=== PATIENT | male | born 1945 | race African-American/Black ===

== ENCOUNTER 2023-11-15 13:48 | Outpatient (AMB) | payer MEDICARE, MEDICAID, SELFPAY ==
--- NOTE | 2023-11-15 14:07 | HO.NEPHOV ---
Vital Signs 11/15/23 14:09 Height 5 ft 11 in Weight 179 lb BMI 25.0 BP 86/54 L Blood Pressure Location Rt brachial Position Sitting Pulse 63 Pulse Source Pulse Oximeter Pulse Oximetry (%) 97 Oxygen Delivery Method Room Air Intake Visit Reasons: Self referral- 2nd opinion/ sees Dr Bennett/ Araseli Pressurised Container Filler Required: No Accompanied by: Friend Allergies codeine Allergy (Unknown, Verified 11/15/23 14:12) Unknown Medication List - Last Reconciled 11/15/23 by Yonny Pelayo MD apixaban (Eliquis) 2.5 mg PO BID dorzolamide-timolol 22.3-6.8 mg/mL ophthalmic (eye) BID famotidine 10 mg PO DAILY linaclotide (Linzess) 72 mcg PO DAILY HPI Comments Details: Edmund is a pleasant 78-year-old man with a history of chronic kidney disease stage 3. Serum creatinine has been around 1.6 mg/dL and this has been relatively unchanged for the past 3 years. The exact etiology for CKD is unclear at this time. Back in 2017 he was diagnosed with AFib and he had a stroke. He is on anticoagulation at this time. CKD was diagnosed at that time. No history of hypertension or diabetes mellitus. No urinary symptoms. No polyuria polydipsia no hematuria. No kidney stones. No significant shortness of breath on exertion. He had as leg edema no fever no rash. No joint pains. No nausea or vomiting. No weight loss. He has itching on and off. No significant skin lesions were noted He has significant constipation and recently started on Linzess. Is legally blind [facility] Medical History (Updated 11/15/23 @ 14:33 by Yonny Pelayo MD) Stage 3b chronic kidney disease (CKD) Atrial fibrillation Hemorrhoid Glaucoma Surgical History (Updated 11/15/23 @ 14:12 by VANITA Mc) Hx of cataract surgery (~08/2023) Physical Exam Vital Signs: Last Vital Signs Pulse 63 11/15/23 14:09 BP 86/54 L 11/15/23 14:09 Pulse Ox 97 11/15/23 14:09 Oxygen Delivery Method Room Air 11/15/23 14:09 BMI result Body Mass Index 25.0 Const General: comfortable; No acute distress Orientation/consciousness: patient oriented x3 Eyes General: appearance normal, both eyes and all related structures Neck Neck: Yes supple and Yes no JVD Resp Effort & Inspection: normal respiratory effort and respiratory effort not decreased Auscultation: rhonchi Cardio Palpation: no palpable S3 and no palpable S4 Heart sounds: no rubs GI Inspection: Yes normal to inspection Palpation (GI): Soft to palpation Percussion: Yes normal to percussion Auscultation: normal bowel sounds General: Yes no CVA tenderness Back/Spine/Pelvis Back: no CVA tenderness Skin General skin exam: no petechiae and no purpura Neuro General: patient oriented x3 and no focal motor deficits Extrem General: No clubbing and Yes edema Results Reviewed Results Reviewed: Labs were reviewed serum creatinine 1.6. Nephrology Results: No Data to Display Assessment & Plan Assessment & Plan (1) Stage 3b chronic kidney disease (CKD): Code(s): N18.32 - Chronic kidney disease, stage 3b Category: Medical Plan 78-year-old man with CKD 3. Serum creatinine has been stable at 1.6 for the last few years. Clearly renal function appears stable. Initiated workup for CKD. Obtain 24 urine collection for creatinine clearance. Check renal ultrasonogram. Urine studies ordered. Further workup will depend on the outcome of the baseline investigations. At present blood pressure is rather low but he is asymptomatic. Leg edema. Etiology is unclear. Recently had echocardiogram and was reportedly normal. I will track down the results. Based on recent blood work there is no evidence of any significant anemia or secondary hyperparathyroidism. He has been experiencing sporadic itching. I do not think this is related to his renal failure. Calcium and phosphorus were normal. No evidence of uremia. I have answered all their questions and returned to the office after the baseline workup is completed Orders: Orders Complete Blood Count Auto Diff 11/15/23 N18.32 - Chronic kidney disease, stage 3b Comprehensive Met. Panel 11/15/23 N18.32 - Chronic kidney disease, stage 3b Creatinine, 24 Hr Group 11/15/23 N18.32 - Chronic kidney disease, stage 3b Parathyroid Hormone Intact 11/15/23 N18.32 - Chronic kidney disease, stage 3b Vitamin D 25-OH (D2 and D3) 11/15/23 N18.32 - Chronic kidney disease, stage 3b UA and rflx microscopic 11/15/23 N18.32 - Chronic kidney disease, stage 3b Protein Electrophoresis, Serum 11/15/23 N18.32 - Chronic kidney disease, stage 3b US renal BI 11/15/23 N18.32 - Chronic kidney disease, stage 3b Creatinine Urine 11/15/23 N18.32 - Chronic kidney disease, stage 3b Creatinine Clearance Urine 24U 11/15/23 N18.32 - Chronic kidney disease, stage 3b Phosphorus 11/15/23 N18.32 - Chronic kidney disease, stage 3b Total Protein Urine Random 11/15/23 N18.32 - Chronic kidney disease, stage 3b Coding Level of Care Code New Pt Level 4 (75675) Diagnoses Stage 3b chronic kidney disease (CKD) N18.32
[2023-11-15 14:09] VITALS: BP 86/54; PULSE 63; O2SAT 97; BMI 25.0
== END 2023-11-15 14:42 | disposition home or self-care (01) ==
PROVIDERS: PCP Internal Medicine; Visit Provider Internal Medicine Hypertension Specialist
DX: N18.32 Chronic kidney disease, stage 3b (principal)
CPT/HCPCS: 99204

== ENCOUNTER → 2023-11-15 13:48 | Outpatient (BNVA) | payer MEDICARE, MEDICAID, SELFPAY | PROVIDERS: PCP Internal Medicine; Visit Provider Internal Medicine Hypertension Specialist | DX: N18.32 Chronic kidney disease, stage 3b (principal); Z79.01 Long term (current) use of anticoagulants | CPT/HCPCS: 99202 ==

== ENCOUNTER 2024-01-10 13:21 | Outpatient (REF) | payer MEDICARE, MEDICAID, SELFPAY ==
[2024-01-10 14:25] LABS: MANUAL DIFF FLAG NO
[2024-01-10 14:41] LABS: Basophils Absolute Auto 0.1 X10*3/uL (0.0-0.2); Eosinophils Absolute Auto 0.2 X10*3/uL (0.0-0.4); Eosinophils Percent Auto 2.2 % (0-4); Hematocrit 44.2 % (42.0-52.0); Hemoglobin 14.2 g/dl (14.0-18.0); Imm Gran Abs Auto 0.02 X10*3/uL (0.00-0.03); Imm Gran Pct Auto 0.3 % (0.0-0.4); Lymphocytes Absolute Auto 1.2 X10*3/uL (1.2-4.9); Lymphocytes Percent Auto 16.9 % (20-40); Mean Corpuscular HGB Conc 32.1 g/dl (31.0-36.0); Mean Platelet Volume 9.3 fL (9.4-12.4); Monocytes Absolute Auto 0.8 X10*3/uL (0.1-1.2); Monocytes Percent Auto 10.8 % (2-11); Neutrophils Percent Auto 68.8 % (45-73); Platelet Count 231 X10*3/uL (160-400); Red Blood Count 5.08 X10*6/uL (4.60-5.80); White Blood Count 7.2 X10*3/uL (4.8-10.8)
[2024-01-10 14:52] LABS: Appearance Urine Clear; Color Urine Yellow; Glucose Urine UA Negative (Negative); Leukocyte Esterase Urine Negative (Negative); Nitrite Urine Negative (Negative); Urine Blood Negative (Negative); Urine Ketones Negative (Negative); Urine Protein Negative (Neg-Trace)
[2024-01-10 15:32] LABS: Parathyroid Hormone Intact 94.4 pg/mL (8.7-77.1)
[2024-01-10 15:41] LABS: Alanine Aminotransferase 17 U/L (0-40); Albumin Level 3.9 g/dL (3.5-5.0); Alkaline Phosphatase 61 U/L (39-117); Anion Gap 11 (12-20); Aspartate Amino Transferase 24 U/L (5-37); Bilirubin Total 0.4 mg/dL (0.0-1.0); Blood Urea Nitrogen 19 mg/dL (9-16); Calcium 9.3 mg/dL (8.4-10.2); Carbon Dioxide 24 mmol/L (22-29); Chloride 106 mmol/L (96-108); Estimated Glomerular Filt Rate 39; Glucose Random 88 mg/dL (60-115); Phosphorus 3.5 mg/dL (2.7-4.5); Sodium 137 mmol/L (135-145); Total Protein 6.7 g/dL (6.5-8.0)
[2024-01-10 16:37] LABS: Total Protein Urine Random 11 mg/dL (<12)
[2024-01-11 11:58] LABS: Prot Elec - Albumin 3.8 g/dL (3.8-4.8); Prot Elec - Alpha1 0.2 g/dL (0.2-0.3); Prot Elec - Alpha2 0.7 g/dL (0.5-0.9); Prot Elec - Beta 1 0.4 g/dL (0.4-0.6); Prot Elec - Beta 2 0.4 g/dL (0.2-0.5); Prot Elec - Gamma 1.1 g/dL (0.8-1.7); Prot Elec - Total Protein 6.6 g/dL (6.1-8.1)
[2024-01-14 17:34] LABS: Vitamin D 25-OH, D2 <4 ng/mL; Vitamin D 25-OH, D3 17 ng/mL; Vitamin D 25-OH, Total 17 ng/mL (30-100)
== END 2024-01-10 13:22 | disposition home or self-care (01) ==
LOC: HO.LAB 13:21
PROVIDERS: PCP Internal Medicine; Visit Provider Internal Medicine Hypertension Specialist
DX: N18.32 Chronic kidney disease, stage 3b (principal)
CPT/HCPCS: 36415; 80053; 81003; 82306; 82570; 83970; 84100; 84156; 84165; 85025; 99212

== ENCOUNTER 2024-01-10 13:21 | Outpatient (AMB) | payer MEDICARE, MEDICAID, SELFPAY ==
[2024-01-10 13:22] VITALS: BP 100/60; PULSE 63; O2SAT 97; BMI 24.5
--- NOTE | 2024-01-10 13:22 | HO.NEPHOV_ITS ---
Vital Signs 01/10/24 13:22 01/10/24 13:32 Height 5 ft 11 in Weight 176 lb BMI 24.5 BP 100/60 106/60 Blood Pressure Location Rt brachial Rt brachial Position Sitting Sitting Pulse 63 Pulse Source Pulse Oximeter Pulse Oximetry (%) 97 Oxygen Delivery Method Room Air Intake Visit Reasons: Stage 3b CKD/ LVM Obiee Report Developer Required: No Accompanied by: Friend Allergies codeine Allergy (Unknown, Verified 01/10/24 13:24) Unknown Medication List - Last Reconciled 01/10/24 by Yonny Pelayo MD apixaban (Eliquis) 2.5 mg PO BID dorzolamide-timolol 22.3-6.8 mg/mL ophthalmic (eye) BID famotidine 10 mg PO DAILY linaclotide (Linzess) 72 mcg PO DAILY HPI Comments Details: Edmund is a pleasant 78-year-old man with a history of chronic kidney disease stage 3. Serum creatinine has been around 1.6 mg/dL and this has been relatively unchanged for the past 3 years. The exact etiology for CKD is unclear at this time. Back in 2017 he was diagnosed with AFib and he had a stroke. He is on anticoagulation at this time. CKD was diagnosed at that time. No history of hypertension or diabetes mellitus. No urinary symptoms. No polyuria polydipsia no hematuria. No kidney stones. No significant shortness of breath on exertion. He had as leg edema no fever no rash. No joint pains. No nausea or vomiting. No weight loss. He has itching on and off. No significant skin lesions were noted He has significant constipation and recently started on Linzess. Is legally blind 01/10/24 Doing better NO new issues today Has difficulty sleeping c/o fatigue [facility] Medical History (Updated 11/15/23 @ 14:33 by Yonny Pelayo MD) Stage 3b chronic kidney disease (CKD) Atrial fibrillation Hemorrhoid Glaucoma Surgical History Hx of cataract surgery (~08/2023) Physical Exam Vital Signs: BMI result Body Mass Index 24.5 Comfortable Neck supple no JVD. Lungs entry equal no rales. Heart S1-S2 heard no gallop or rub. Abdomen soft nontender. Neuro alert awake oriented. No asterixis. Extremities no edema. Results Reviewed Results Reviewed: Cr is better at 1.56 and egfr of 45 ml/mt Nephrology Results: No Data to Display Assessment & Plan Assessment & Plan (1) Stage 3b chronic kidney disease (CKD): Code(s): N18.32 - Chronic kidney disease, stage 3b Category: Medical Plan 78-year-old man with CKD 3. Serum creatinine has been stable at 1.6 for the last few years. Recent cr is 1.56 ( Nov 2023) Clearly renal function appears stable. 24 urine collection for creatinine clearance. Renal ultrasonogram - unremarkable Urine studies : NO protienuria. [place] UA At present blood pressure remains low but he is asymptomatic. Trace Leg edema. Etiology is unclear. Recently had echocardiogram and was reportedly normal. Based on recent blood work there is no evidence of any significant anemia or secondary hyperparathyroidism. Mild Vit D deficiency Will ADD VIt D He has been experiencing sporadic itching. I do not think this is related to his renal failure. Calcium and phosphorus were normal. No evidence of uremia. Currently under control. Orders: Orders Basic Metabolic Panel Today N18.32 - Chronic kidney disease, stage 3b Medications: New 2 cholecalciferol (vitamin D3) 10 mcg PO DAILY 100 caps 2RF Coding Level of Care Code Est Pt Level 4 (87263) Diagnoses Stage 3b chronic kidney disease (CKD) N18.32
[2024-01-10 13:32] VITALS: BP 106/60
== END 2024-01-10 13:45 | disposition home or self-care (01) ==
PROVIDERS: PCP Internal Medicine; Visit Provider Internal Medicine Hypertension Specialist
DX: N18.32 Chronic kidney disease, stage 3b (principal)
CPT/HCPCS: 99214

== ENCOUNTER 2024-05-01 12:31 | Outpatient (REF) | payer MEDICARE, MEDICAID, SELFPAY ==
[2024-05-01 13:57] LABS: Anion Gap 10 (12-20); Blood Urea Nitrogen 21 mg/dL (9-16); Calcium 8.8 mg/dL (8.4-10.2); Carbon Dioxide 24 mmol/L (22-29); Chloride 110 mmol/L (96-108); Estimated Glomerular Filt Rate 44; Glucose Random 93 mg/dL (60-115); Potassium 4.3 mmol/L (3.3-5.1); Sodium 140 mmol/L (135-145)
[2024-05-01 14:23] LABS: Creatinine, mg/dL 52.81; Creatinine, mg/dL 53.59
[2024-05-01 14:31] LABS: Creatinine (CrCl) 1.52 mg/dL (0.5-1.4); Creatinine Clearance 51.4 mL/min (85-125); Creatinine, 24Hr Urine 1.1 G/Day (1.0-2.0); Total Volume 24 Hour Urine 2100 mL
[2024-05-01 14:32] LABS: Creatinine, 24Hr Urine 1.1 G/Day (1.0-2.0); Total Volume 24 Hour Urine 2100 mL
== END 2024-05-01 12:32 | disposition home or self-care (01) ==
LOC: HO.LAB 12:31
PROVIDERS: PCP Internal Medicine; Visit Provider Internal Medicine Hypertension Specialist
DX: N18.32 Chronic kidney disease, stage 3b (principal)
CPT/HCPCS: 36415; 80048; 82570; 82575

== ENCOUNTER 2024-05-08 14:51 | Outpatient (AMB) | payer MEDICARE, MEDICAID, SELFPAY ==
[2024-05-08 14:55] VITALS: BP 92/70; BMI 23.0
--- NOTE | 2024-05-08 14:55 | HO.NEPHOV_ITS ---
Vital Signs 05/08/24 14:55 Height 5 ft 11 in Weight 165 lb BMI 23.0 BP 92/70 Blood Pressure Location Lt brachial Position Sitting Intake Visit Reasons: CKD/ Unable to reach Obstetrical Tech Required: No Accompanied by: Ex Allergies codeine Allergy (Unknown, Verified 05/08/24 14:56) Unknown Medication List - Last Reconciled 05/08/24 by Yonny Pelayo MD apixaban (Eliquis) 2.5 mg PO BID smavwuvyoa-melunvrits-pnh-cod [id number] mg 1 cap PO Q4H PRN cholecalciferol (vitamin D3) 10 mcg PO DAILY dorzolamide-timolol 22.3-6.8 mg/mL ophthalmic (eye) BID famotidine 20 mg PO BID tramadol 50 mg PO TID PRN HPI Comments Details: Edmund is a pleasant 78-year-old man with a history of chronic kidney disease stage 3. Serum creatinine has been around 1.6 mg/dL and this has been relatively unchanged for the past 3 years. The exact etiology for CKD is unclear at this time. Back in 2017 he was diagnosed with AFib and he had a stroke. He is on anticoagulation at this time. CKD was diagnosed at that time. No history of hypertension or diabetes mellitus. No urinary symptoms. No polyuria polydipsia no hematuria. No kidney stones. No significant shortness of breath on exertion. He had as leg edema no fever no rash. No joint pains. No nausea or vomiting. No weight loss. He has itching on and off. No significant skin lesions were noted He has significant constipation and recently started on Linzess. Is legally blind 01/10/24 Doing better; NO new issues today ;Has difficulty sleeping ;c/o fatigue 05/08/24 Recent in ER with abd pain- resolved Lost 10 lbs in 6months c/o Constipation Last colonoscopy was in 3 years [facility] Medical History (Updated 11/15/23 @ 14:33 by Yonny Pelayo MD) Stage 3b chronic kidney disease (CKD) Atrial fibrillation Hemorrhoid Glaucoma Surgical History Hx of cataract surgery (~08/2023) Physical Exam Vital Signs: Last Vital Signs BP 92/70 05/08/24 14:55 BMI result Body Mass Index 23.0 Comfortable Neck supple no JVD. Lungs entry equal no rales. Heart S1-S2 heard no gallop or rub. Abdomen soft nontender. Neuro alert awake oriented. No asterixis. Extremities no edema. Results Reviewed Nephrology Results: Hgb 14.2 g/dl (14.0-18.0) 01/10/24 WBC 7.2 X10*3/uL (4.8-10.8) 01/10/24 Plt Count 231 X10*3/uL (160-400) 01/10/24 Sodium 140 mmol/L (135-145) 05/01/24 Potassium 4.3 mmol/L (3.3-5.1) 05/01/24 Chloride 110 mmol/L (96-108) H 05/01/24 Carbon Dioxide 24 mmol/L (22-29) 05/01/24 BUN 21 mg/dL (9-16) H 05/01/24 Creatinine 1.52 mg/dL (0.5-1.4) H 05/01/24 Calcium 8.8 mg/dL (8.4-10.2) 05/01/24 Phosphorus 3.5 mg/dL (2.7-4.5) 01/10/24 PTH Intact 94.4 pg/mL (8.7-77.1) H 01/10/24 Urine Protein Negative mg/dL (Neg-Trace) 01/10/24 Urine Creatinine 173.40 mg/dL 01/10/24 Assessment & Plan Assessment & Plan (1) Stage 3b chronic kidney disease (CKD): Code(s): N18.32 - Chronic kidney disease, stage 3b Category: Medical Plan 79-year-old man with CKD 3. Serum creatinine has been stable at 1.6 for the last few years. Recent cr is 1.56 ( Nov 2023) Clearly renal function appears stable. 24 urine collection for creatinine clearance. Renal ultrasonogram - unremarkable Urine studies : NO protienuria. [place] UA At present blood pressure remains low but he is asymptomatic. Trace Leg edema. Etiology is unclear. Recently had echocardiogram and was reportedly normal. Based on recent blood work there is no evidence of any significant anemia or secondary hyperparathyroidism. Mild Vit D deficiency Added VIt D He has been experiencing sporadic itching. I do not think this is related to his renal failure. Calcium and phosphorus were normal. No evidence of uremia. Currently under control. Constipation with weight loss Needs GI follow up and possible colonoscopy. . Orders: Orders Complete Blood Count no Diff 3 Months N18.32 - Chronic kidney disease, stage 3b Basic Metabolic Panel 3 Months N18.32 - Chronic kidney disease, stage 3b Coding Level of Care Code Est Pt Level 4 (35756) Diagnoses Stage 3b chronic kidney disease (CKD) N18.32
--- OUTSIDE RECORDS SUMMARY | 2024-05-08 17:44 | XMS_ITS | Encounter Summary ---
Author Organization [facility], Address [address] [place] [address] Phone Care Team Providers Care Inspector Structural Bonding Name Role Phone Marybeth Hylton MD Primary Care Provider [phone] Encounter Details Date Type Department Care Team (Late st Contact Info) Description 06/17/2023 Documentation Only [facility], [address] [place] [id number] Rebecca Quinn [address] [place] [address] Social History Tobacco Use Types Packs/Day Years Used Date Smoking Tobacco: Never Smokeless Tobacco: Never Alcohol Use Standard Drinks/Week Comments Never 0 (1 standard drink = 0.6 oz pur e alcohol) AUDIT-C Answer Date Recorded Q1: How often do you have a drink containing alc ohol? Never 09/18/2019 Q2: How many drinks containi ng alcohol do you have on a typical day when you are drinking? Not asked 09/18/2019 Q3: How often do you have six or more drinks on one occasion? Never 09/18/2019 Sex and Gender Information Value Date Recorded Sex Assigned at Not on file Legal Sex Male 9:40 AM EDT Gender Identity Not on file Sexual Orientation Not on file documented as of this encounter Plan of Treatment Not on file documented as of this encounter Visit Diagnoses Not on filedocumented in this encounter Care Teams Inspector Structural Bonding Relationship Specialty Start Date End Date Marybeth Hylton MD [address] [place] [phone] PCP - General Internal Medicine 11/30/22 documented as of this encounter
--- OUTSIDE RECORDS SUMMARY | 2024-05-08 17:44 | XMS_ITS | Clinical Summary ---
Author Organization [facility], Address [address] [place] [address] Phone Care Team Providers Care Deck Supervisor Name Role Phone Marybeth Hylton MD Primary Care Provider [phone] Allergies Active Allergy Reactions Criticality Noted Date Comments Codeine Other (see comments) 09/17/2018 [facility]ANT Medications MAGNESIUM PO Take by mouth Act gabriel Multiple Vitamin (multivitamin) tablet Take by mouth 1 (one) time each day Active pilocarpine (PILOCAR) 2 % ophthalmic solution Active Timolol Maleate 0.5 % (DAILY) solution Administer into affected eye(s) Active butalbital-acet aminophen-caffe ine (FIORICET, ESGIC) 50-325-40 MG per tablet TAKE 2 TABLETS BY MOUTH EVERY 4 HOURS NEEDED FOR SEVERE HEADACHE LIMIT USE ABLE. 0 Active traMADol (ULTRAM) 50 MG tablet 0 Active Eliquis 2.5 MG tablet Take 2.5 mg by mouth 1 Active dorzolamide (TRUSOPT) 2 % ophthalmic solution 1 Active famotidine (PEPCID) 10 MG tablet Take 10 mg by mouth in the morning and 10 mg in the evening. Active ALPRAZolam (XANAX) 0.5 MG tablet TAKE 1 TAB 1 HOUR PRIOR TO INJECTION. 4 Active torsemide (DEMADEX) 5 MG tablet Take 5 mg by mouth 1 (one) time each day For 30 days 4 Active Active Problems Problem Noted Date Diagnosed Date Stage 3b chronic kidney disease 09/18/2019 Atrial fibrillation 09/18/2019 Resolved Problems Problem Noted Date Diagnosed Date Resolved Date Stage 3a chronic kidney disease 10/03/2021 11/27/2022 Cardioembolic stroke 09/18/2019 021 Immunizations Name Administration Dates Next Due Influenza Split High Dose Preservative Free IM 1 Influenza, Trivalent, Adjuvanted 11/21/2018 Influenza, Unspecified 11/21/2019,12/16/2018 Pfizer SARS-COV-2 04/19/2020,03/29/2020 Pneumococcal Conjugate 13-Valent 06/18/2014 Pneumococcal Polysaccharide 03/27/2008 Td 08/01/2018,03/27/2008 Zoster 04/22/2011 Family History Medical History Relation Comments Pulmonary embolism Sister Relation Status Comments Sister Social History Tobacco Use Types Packs/Day Years Used Date Smoking Tobacco: Never Smokeless Tobacco: Never Tobacco Cessation:Counseling Given: Not Answered Alcohol Use Standard Drinks/Week Comments Never 0 [...] on file Sexual Orientation Not on file Last Filed Vital Signs Vital Sign Reading Time Taken Comments Blood Pressure 102/62 06/21/2023 2:33 PM EDT Pulse 72 06/21/2023 2:33 PM EDT Temperature 36.3 ??C (97.4 ??F) 04/06/2022 2:39 PM ES T Respiratory Rate - - Oxygen Saturation - - Inhaled Oxygen Concentration - - Weight - - Height - - Body Mass Index - - Plan of Treatment Health Maintenance Due Date Last Done Comments Influenza Vaccine (#1) 2023 0, 12/16/2018, 11/21/2018, Additional history exists Pneumococcal Vaccine: 65+ Years Completed 06/18/2014, 03/27/2008 Hepatitis B Vaccine Aged Out No longe r eligible based on patient's age to complete this topic Insurance MEDICARE MEDICAID [place] Care Teams Deck Supervisor Relationship Specialty Start Date End Date Marybeth Hylton MD [address] [place] [phone] PCP - General Internal Medicine 11/30/22
--- OUTSIDE RECORDS SUMMARY | 2024-05-08 17:45 | XMS_ITS | Data Portability ---
Author Organization [place] - [facility], Allergy Address [address] [place] [phone] Care Team Providers Care Document Design Specialist Name Role Phone WHIT LANE Primary Care Provider Assessment No assessment recorded. Plan of Treatment Reminders Order Date Submit Date Provider Last Modified By Organization Details Last Modified Time Details Appointments None record ed. Lab None record ed. Referral None record ed. Procedures None record ed. Surgeries None record ed. Imaging None record ed. Medication Orders None record ed. Patient TargetsNo targets recorded. Patient InstructionsNo instructions recorded. Reason for Referral None Reported. Results Created Date Observation Date Name Description Value Unit Range Abnormal Flag Note LastModifiedBy Organization Detail LastModifiedTime 11/12/19 24 03/22/2023 CT, head + brain , w/o contr ast No observ ation record ed. [email or web address] Available 2023 15:17:20 11/12/19 24 03/23/2023 MRI, brain , w/o contr ast No observ ation record ed. [email or web address] Not Available 2023 15:17:42 Result Notes None recorded. Problems Name Problem SNOMED Code Status Onset Date Resolution Date Notes Provider Name and Address Organization Details Recorded Time Abnormal findings on diagnostic imaging of skull and head 471283023 Active 2023 ABIEL Garza MD [address] [address], [place], [phone], [facility] - [facility] 4 13:57:09 Posterior rhinorrhea 08355198 Active 2023 ABIEL Garza MD [address] [facility] [address], [place], [phone], [place] - [facility] 4 13:57:15 Chronic hoarseness 3155547604121 Active 2023 ABIEL Garza MD [address] [facility], [place], [phone], [facility] - [facility] [place] 4 13:57:25 Impacted cerumen of bilateral ears 9547813568176 108 Active 2023 ABIEL Garza MD [address] [facility] [address], [place], [phone], [facility] - [facility] [place] 4 14:11:28 Problem Notes None recorded. Procedures Surgical History Date Name Laterality Status Provider Name and Address Organization Details Recorded Time 11/12/19 24 Cerumen removal with microscope bilateral completed ABIEL AMADOR MD [address] [facility],[address] [address], [place], [phone], [facility] - [facility] [place] 11/12/2023 14:11:49 11/12/19 24 FFL_RE completed ABIEL AMADOR MD [address] [facility],[address] [address], [place], [phone], [facility] - [facility] [place] 11/12/2023 14:08:59 Cataract surg w/iol 1 stage completed Mannie Ambrose [facility] [place] [place] 11/12/2023 13:17:31 Imaging Results Imaging Date Name Status LastModified by Organiz ation Details LastModified Time 03/22/2023 CT, head + brain, w/o contrast [email or web address] Information not available 11/12/2023 15:17:20 03/23/2023 MRI, brain, w/o contrast completed [email or web address] Information not available 11/12/2023 15:17:42 Procedure Notes None recorded. Medical Equipment None Reported. Medications Name Sig Start Date Stop Date Status Note LastModified by Organization Details LastModified Time alprazolam 1 mg tablet TAKE TABLET BY MOUTH 1 HOUR BEFORE INJECTION active Not Available Not Available No t Available ofloxacin 0.3 % eye drops INSTILL 1 DROP IN LEFT EYE FOUR TIMES A DAY active Not Available Not Available No t Available hydrocodone 5 mg-acetaminop hen 325 mg tablet 1 TABLET BY MOUTH 3 TIMES A DAY NEEDED active Not Available Not Available No t Available prednisone 20 mg tablet TAKE 3 TABS A DAY FOR 3 DAYS, THEN 2 TABS A DAY FO 3 DAYS, THEN 1 TAB A DAY FOR 3 DAYS active Not Available Not Available No t Available sulfamethoxaz ole 800 mg-trimethopr im 160 mg tablet TAKE 1/2 TABLET BY MOUTH EVERY 12 HOURS X14 DAYS,PATIE NT TO HAVE EXTRA ON HAND PER MD active Not Available Not Available No t Available tramadol 50 mg tablet TAKE 1 TABLET BY MOUTH 3 TIMES A DAY FOR PAIN active Not Available Not Available No t Available ketorolac 0.5 % eye drops INSTILL 1 DROP IN LEFT EYE THREE TIMES A DAY FOLLOWING SURGERY FOR THREE WEEKS active Not Available Not Available No t Available alprazolam 0.5 mg tablet TAKE 1 TAB 1 HOUR PRIOR TO INJECTION. active Not Available Not Available N ot Available prednisolone acetate 1 % eye drops,suspens ion INSTILL 1 DROP IN LEFT EYE THREE TIMES A DAY (SHAKE WELL) FOLLOWING SURGERY FOR THREE WEEKS active Not Available Not Available No t Available temazepam 15 mg capsule TAKE 1 CAPSULE BY MOUTH EVERY DAY AT BEDTIME NEEDED NO MORE THAN 3 TIMES A WEEK active Not Available Not Available No t Available tamsulosin 0.4 mg capsule TAKE 1 CAPSULE BY MOUTH EVERY DAY active Not Available Not Available No t Available torsemide 5 mg tablet TAKE 1 TABLET BY MOUTH EVERY DAY FOR 30 DAYS active Not Available Not Available No t Available nystatin 100,000 unit/gram topical cream APPLY TO AFFECTED AREA TWICE A DAY active Not Available Not Available No t Available fluorometholo ne 0.1 % eye drops,suspens ion LOCATION: LEFT EYE. INSTILL ONE DROP IN LEFT EYE FOUR TIMES A DAY active Not Available Not Available No t Available dorzolamide 22.3 mg-timolol 6.8 mg/mL eye drops INSTILL 1 DROP INTO BOTH EYES TWICE A DAY active Not Available Not Available No t Available timolol maleate 0.5 % eye drops LOCATION: BOTH EYES. INSTILL ONE DROP IN BOTH EYES EVERY 12 HOURS active Not Available Not Available No t Available finasteride 5 mg tablet TAKE 1 TABLET BY MOUTH EVERY DAY active Not Available Not Available No t Available dorzolamide 2 % eye drops LOCATION: BOTH EYES. INSTILL ONE DROP IN BOTH EYES EVERY 12 HOURS active Not Available Not Available No t Available mirtazapine 7.5 mg tablet TAKE 1 TABLET BY MOUTH EVERY DAY FOR 30 DAYS active Not Available Not Available No t Available Romariote-G 236 gram-22.74 gram-6.74 gram-5.86 gram oral solution DRINK 240 ML BY MOUTH EVERY 10 MINUTES active Not Available Not Available No t Available Xifaxan 550 mg tablet TAKE 1 TABLET BY MOUTH 3 TIMES A DAY FOR 14 DAYS active Not Available Not Available No t Available Linzess 72 mcg capsule 1 CAPSULE BY MOUTH DAILY,INST R:DO NOT CRUSH OR CHEW active Not Available Not Available No t Available Vitals Date Recorded Body height Body mass index (BMI) Body weight Provider Name and Address Organization Details Last Updated DateTime 11/12/2023 180.34 cm 24.7 kg/m2 44919.85 g Mannie Ambrose [place] - [facility] 11/12/2023 13:28:45 Social History None recorded. Functional Status None recorded. Mental Status None recorded. Family History Nothing Reported. Medical History No medical history recorded. Past Encounters Encounter ID Performer Location Encounter Start Date Encounter Closed Date Diagnosis/Indication Diagnosis SNOMED-CT Code Diagnosis ICD10 Code Diagnosis Note [id number] ABIEL AMADOR MD [facility] on [address] [place] [address] 11/12/2023 12:52:54 11/12/2023 15:18:02 Abnormal findings on diagnostic imaging of skull and head 083355448 R93.0 mucus retention cyst seen on CT. I gave reassuranc e. No polyps on nasal endo. Posterior rhinorrhea 758 12108 R09.82 encouraged hydration and Neilmed sinus rinse. 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 Impacted c erumen of bilateral ears [id number] 808168 H61.23 Recurrent Cerumen Impactions : Ears were meticulous ly cleaned bilaterall y today with a curette and suction. The patient tolerated this well and will follow up for repeat debridemen t per routine. Health Concerns Section Related Observation LastModified by Organization Detai ls LastModified Time None Recorded Concern Status LastModified by Organization Details LastModified Time None Recorded Advance Directives Directive None Recorded Payers Encounter Date Sequence Insurance Name Policy Number Policy Lal Covered Member ID Lal Member ID Guarantor Name 11/12/2023 1 [place]ARE [place]: [employer] Edmund Allison [id number] 1 Edmund Allison Notes Date Note Type Note Provider Name and Address Organization Details Recorded Time 11/12/2023 text/html He has a history of post nasal drip. He feels mucus drain into his throat. He feels it affects his voice. He had imaging due to concern for stroke and carotid dissection including a CT head 03/2023 which showed a mucus retention cysts in the right maxillary sinus. Had a MRI brain 03/2023 which showed clear sinuses. He also has occasional ear pain. He is legally blind. ABIEL AMADOR MD [address] [place] [address], [phone], [place] - [facility] 11/12/2023 14:12:09
--- OUTSIDE RECORDS SUMMARY | 2024-05-08 17:45 | XMS_ITS | Data Portability ---
Author Organization [facility], [facility] Address [address] [place] [address] Care Team Providers Care Ore Puncher Name Role Phone AMARA DUBON OTHER HAL KATE OTHER DANETTE BENNETT Pattern Cutter [facility] Urologist DALTON QUINTERO Sports Medicine WHIT HYLTON Primary Care Provider [phone] Assessment Encounter Date Assessment Date Assessment LastModified by Organization Details LastModified Time 04/10/2024 04/10/2024 The care for this patient today involved the following: I have reviewed, collected, and updated relevant history and performed a physical exam. An independent historian was used to obtain history Nando lynnerenetta Wild My assessment of Social Determinants of health: patient at risk. At risk due to: food, health insurance, housing, transportation, safety, health literacy. My care of this patient involved: Moderate assessment of problems. Low review of data. Moderate complexity of risk from disease or treatments. Below is my assessment and plan for this patient? s care today. [email or web address] Not available 04/13/2024 07:51:08 Plan of Treatment Reminders Order Date Submit Date Provider Last Modified By Organization Details Last Modified Time Details Appointments LAB Follow- Up 2024 10:35A M [facility] Lab Not available Not available Not available Treatme nt Nurse 20 2024 11:40A M [facility]REAT[facility] NURSE [facility] Not available Not available Not available Follow Up, 30 2024 12:00P M FAVIOLA KELLEY, SENIOR RESERVOIR ENGINEER Not available Not available Not available LAB Follow- Up 2024 11:30A M [facility] Lab Not available Not available Not available Wellnes s Visit 30 2024 01:30P M FAVIOLA KELLEY, SENIOR RESERVOIR ENGINEER Not available Not available Not available Lab culture , urine 2024 025 [facility], [address] [place] [address], [id number], 04/11/2024 22:38:05 urinaly sis, dipstic k 2024 025 [facility], [address] [place] [address], [id number], 04/10/2024 18:24:17 Referral None recorde d. Procedures None recorde d. Surgeries None recorde d. Imaging None recorde d. Medication Orders cyanoco balamin (vit B-12) 1,000 mcg/mL injecti on solutio n [address]/Pharmacy #[id number], [address] [place] [address], [id number], 04/25/2024 08:27:13 Bactrim DS 800 mg-160 mg tablet 2024 025 [facility] [address] [place] [address], [id number], 05/04/2024 12:03:30 cyanoco balamin (vit B-12) 1,000 mcg/mL injecti on solutio n [address]/Pharmacy #1094, [address] [place], [address], 03/10/2024 11:34:13 cyanoco balamin (vit B-12) 1,000 mcg/mL injecti on solutio n [address]/Pharmacy #1094, [address] [place], [address], 02/07/2024 14:32:55 Patient TargetsNo targets recorded. Patient InstructionsNo instructions recorded. Reason for Referral None Reported. Results Created Date Observation Date Name Description Value Unit Range Abnormal Flag Note LastModifiedBy Organization Detail LastModifiedTime 04/10/1904/10/2024 POC UA glu UA NEGATI VE Not Available [facility] [address] [place] [address], [id number], 04/10/2024 17:41:20 04/10/19 25 04/10/2024 POC UA clarity UA CLEAR Not Available [facility] [address] [place] [address], [id number], 04/10/2024 17:41:20 04/10/19 25 04/10/2024 POC UA uro UA 0.2000 Not Available [facility] [address] [place] [address], [id number], 04/10/2024 17:41:20 04/10/19 25 04/10/2024 POC UA ket UA NEGATI VE Not Available [facility] [address] [place] [address], [id number], 04/10/2024 17:41:20 04/10/19 25 04/10/2024 POC UA pro UA NEGATI VE Not Available [facility] [address] [place] [address], [id number], 04/10/2024 17:41:20 04/10/19 25 04/10/2024 POC UA nit UA NEGATI VE Not Available [facility] [address] [place] [address], [id number], 04/10/2024 17:41:20 04/10/19 25 04/10/2024 POC UA amanda UA NEGATI VE Not Available [facility] [address] [place] [address], [id number], 04/10/2024 17:41:20 04/10/19 25 04/10/2024 POC UA pH UA 6.0000 Not Available [facility] [address] [place] [address], [id number], 04/10/2024 17:41:20 04/10/19 25 04/10/2024 POC UA SG UA 1.0200 Not Available [facility] [address] [place] [address], [id number], 04/10/2024 17:41:20 04/10/19 25 04/10/2024 POC UA color UA YELLOW Not Available [facility] [address] [place] [address], [id number], 04/10/2024 17:41:20 04/10/19 25 04/10/2024 POC UA blo UA NEGATI VE Not Available [facility] [address] [place] [address], [address], 04/10/2024 17:41:20 04/10/19 25 04/10/2024 POC UA lilly UA NEGATI VE Not Available [facility] [address] [place] [address], [id number], 04/10/2024 17:41:20 04/10/19 25 04/11/2024 CULTU RE, URINE , ROUTI NE culture, urine, routine CULTU RE, URINE , ROUTI NE Micro Numbe r: [id number] Test Statu s: Final Speci men Sourc e: Urine Speci men Quali ty: Adequ ate Resul t: No Growt h Not Available [facility] [address] [place] [address] B, [place], [address], 04/11/2024 22:38:05 04/25/19 25 04/25/2024 HGB A1C hemoglobin A1C 6.4 % 4.8-6. 0 high Goal: <7% in Patie nts with Diabe oswaldo An A1c betwe en 5.7-6 .4% is ident ified as pre-d iabet es and sugge sts risk for progr essio n to diabe oswaldo Two a1c value s of 6.5% or highe r is consi stent with a diagn osis of diabe oswaldo but may need furth er confi rmati on Not Available [address], [address], 04/25/2024 09:48:06 04/25/1904/25/2024 HGB A1C estimated average glucose 137.0 mg/dL Not Available [address], [address], 04/25/2024 09:48:06 04/25/19 25 04/25/2024 BASIC METAB OLIC PANEL glucose 83 mg/dL 70-100 Not Available [address], [address], 04/25/2024 14:48:59 04/25/19 25 04/25/2024 BASIC METAB OLIC PANEL BUN 27 mg/dL 7-18 high Not Available [address], [address], 04/25/2024 14:48:59 04/25/19 25 04/25/2024 BASIC METAB OLIC PANEL creatinine 1.8 mg/dL 0.8-1. 3 high Not Available [address], [address], 04/25/2024 14:48:59 04/25/1904/25/2024 BASIC METAB OLIC PANEL B/C 15.0 ratio Not Available [address], [address], 04/25/2024 14:48:59 04/25/1904/25/2024 BASIC METAB OLIC PANEL GFR 37.3 mL/mi n abnormal >=60m L/min - Jodi l or midly reduc ed <60mL /min- Decre ased kidne y funct ion <15mL /min - Kidne y failu re [facility] calcu lates estim ated Glome rular Filtr ation Rate (eGFR ) using the Chron ic Kidne y Disea se Epide miolo gy Colla borat ion (CKD- EPI) Equat ion (Martha selby et. al 2020) as recom leander d by the Natio nal Kidne y Found ation . eGFR is based on age, serum creat inine , and sex. CKD-E PI does not calcu late eGFR by race, does not apply to child cody (age <18 years ), and shoul d not be used in pregn meño. Not Available [address], [address], 04/25/2024 14:48:59 04/25/19 25 04/25/2024 BASIC METAB OLIC PANEL sodium 137 mmol/ L 136-14 5 Not Available [address], [address], 04/25/2024 14:48:59 04/25/1904/25/2024 BASIC METAB OLIC PANEL potassium 4.2 mmol/ L 3.5-5. 1 Not Available [address], [address], 04/25/2024 14:48:59 04/25/19 25 04/25/2024 BASIC METAB OLIC PANEL chloride 100 mmol/ L 96-107 Not Available [address], [address], 04/25/2024 14:48:59 04/25/1904/25/2024 BASIC METAB OLIC PANEL anion gap 15.2 5.0-15 .0 high Not Available [address], [address], 04/25/2024 14:48:59 04/25/19 25 04/25/2024 BASIC METAB OLIC PANEL CO2 22 mmol/ L 21-32 Not Available [address], [address], 04/25/2024 14:48:59 04/25/1904/25/2024 BASIC METAB OLIC PANEL calcium 8.9 mg/dL 8.5-10 .3 Not Available [address], [address], 04/25/2024 14:48:59 04/25/19 25 04/25/2024 LIPID PANEL cholesterol 130 mg/dL <200 mg/dl Maggie able 200-2 39 mg/dl Borde rline High >240 mg/dl High Not Available [address], [address], 04/25/2024 14:49:00 04/25/19 25 04/25/2024 LIPID PANEL triglyceride s 82 mg/dL <150 mg/dL Jodi l 150-1 99 mg/dL Borde rline High 200-4 99 mg/dL High >500 mg/dL Very High Not Available [address], [address], 04/25/2024 14:49:00 04/25/1904/25/2024 LIPID PANEL direct HDL 68 mg/dL <40 mg/dl - Major Risk for CHD >60 mg/dl - Negat gabriel Risk for CHD Not Available [address], [address], 04/25/2024 14:49:00 04/25/1904/25/2024 LDL - CALCU LATED LDL - calculated 46 RISK CATEG ORY LDL GOAL _ CHD or CHD Risk Equiv alent s <100 mg/dl (10-y ear risk >20%) 2+ Risk Facto rs <130 mg/dl (10-y ear risk <= 20%) 0-1 Risk Facto r? <160 mg/dl ? Almos t all peopl e with 0-1 risk facto r have a 10 year risk <10%, thus 10 year risk asses ment in peopl e with 0-1 risk facto r is not michael harrington. Not Available [address], [address], 04/25/2024 14:49:01 Result Notes None recorded. Problems Name Problem SNOMED Code Status Onset Date Resolution Date Notes Provider Name and Address Organization Details Recorded Time Nasophar yngitis 44039267 Completed 06/18/2014 Boyd Vidal MD [address] [place] [address] [place], [address], [facility] 6 15:27:18 Adenomat ous polyp of colon 664405314 Active Boyd Vidal MD [address] [place] [address] [place], [address], [facility] 6 16:05:56 Atrial fibrilla tion 46842771 Active 2016 Echo 04/03 EF 60-65% mild cLVH LAE, mild-mod MR Echo 10/04 EF 60-65% Boyd Vidal MD [address] [place], [place] [address], [address], [facility] 0 16:53:40 History of cardioem bolic stroke 951690975 Active 2016 Right MCA Boyd Vidal MD [address] [place] [address] [place], [address], [facility] 7 13:13:25 Tension- type headache 485039139 Completed 201708/29/2019 Boyd Vidal MD [address] [place] [address] [place], [address], [facility] 0 09:00:19 Chronic kidney disease stage 3 648694486 Active 2018 Boyd Vidal MD [address] [place] [address] [place], [address], [facility] 0 08:57:59 Legal blindnes s 90962326 Active 2019 Boyd Vidal MD [address] [place] [address] [place], [address], [facility] 0 08:42:21 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 Boyd Vidal MD [address] [place], [place] [address], [address], [facility] 0 08:59:44 Benign prostati c hyperpla amrit 826705497 Active 2020 Whit Hylton MD [address] [place] [address] [place], [address], [facility] 1 14:20:22 Pulmonar y hyperten agustin 34511202 Active 2021 mild Whit Hylton MD [address] [place], [place] [address], [address], [facility] 2 11:45:26 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 Whit Hylton MD [address] [place], [place] [address], [address], [facility] 2 10:39:08 Gastroes ophageal reflux disease 755820748 Active 2022 Lewis Trejo PA-C [address] [place], [place] [address], [address], [facility] 3 12:36:31 Prediabe oswaldo 270386720 Active 2022 Whit Hylton MD [address] [place], [place] [address], [address], [facility] 3 14:03:57 External hemorrho ids 21133578 Active 2022 Whit Hylton MD [address] [place] [address] [place], [address], [facility] 3 16:01:16 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 2022 Whit Hylton MD [address] [place] [address] [place], [address], [facility] 3 16:01:17 Hiatal hernia 89866924 Active 2022 Whit Hylton MD [address] [place] [address] [place], [address], [facility] 3 15:32:38 Chronic hoarsene ss 98062206081 05 Active 2022 Whit Hylton MD [address] [place] [address] [place], [address], [facility] 3 15:33:58 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 33371752017 130952 Active 2023 Hospital ization 03/2023 Whit Hylton MD [address] [place] [address] [place], [address], [facility] 4 17:02:09 Temporom andibula r joint disorder 97203289 Active 2023 Whit Hylton MD [address] [place] [address] [place], [address], [facility] 4 17:02:07 Hyperpar athyroid ism 80877428 Active 2023 Whit Hylton MD [address] [place] [address] [place], [address], [facility] 4 14:18:40 Vitamin D deficien cy 13947972 Active 2023 Whit Hylton MD [address] [place] [address] [place], [address], [facility] 4 13:58:23 Chronic kidney disease stage 3A 330988960 Active 2024 Je Yanes PA-C [address] [place] [address] [place], [address], [facility] 5 07:52:22 Injury of shoulder region 663397724 Completed 200507/17/2008 Boyd Vidal MD [address] [place] [address] [place], [address], [facility] 6 15:27:18 Disorder of tendon of shoulder region 03566699 Completed 200507/17/2008 Boyd Vidal MD [address] [place] [address] [place], [address], [facility] 6 15:27:18 Migraine without aura 01194164 Active 2001 Boyd Vidal MD [address] [place] [address] [place], [address], [facility] 6 16:05:56 Brachial neuritis 50317875 Completed 200407/17/2008 Boyd Vidal MD [address] [place], [address], [facility] 6 15:27:18 Shoulder pain 27682817 Completed 200507/17/2008 Boyd Vidal MD [address] [place], [address], [facility] 6 15:27:18 Migraine with aura 0604341 Completed 04/22/2011 Boyd Vidal MD [address] [place] [address] [place], [address], [facility] 6 15:27:18 Migraine with aura 6286387 Completed 05/21/2010 Boyd Vidal MD [address] [place] [address] [place], [address], [facility] 6 15:27:18 Migraine with aura 4111525 Completed 200607/17/2008 Boyd Vidal MD [address] [place] [address] [place], [address], [facility] 6 15:27:18 Pain in thoracic spine 536652659 Completed 200507/17/2008 Boyd Vidal MD [address] [place], [place] [address], [address], [facility] 6 15:27:18 Neck pain 89406207 Completed 200407/17/2008 Boyd Vidal MD [address] [place], [place] [address], [address], [facility] 6 15:27:18 Neck pain 29746865 Completed 01/04/2013 Boyd Vidal MD [address] [place] [address] [place], [address], [facility] 6 15:27:18 Pain in limb 84182269 Completed 200407/17/2008 Boyd Vidal MD [address] [place] [address] [place], [address], [facility] 15:27:18 Glaucoma 36680275 Active Boyd Vidal MD [address] [place] [address] [place], [address], [facility] 6 16:05:56 Glaucoma 63392355 Completed 07/17/2008 Boyd Vidal MD [address] [place], [place] [address], [address], [facility] 15:27:18 Notes:enlarged prostote Some problems listed in Documents: #[id number], #[id number], #[id number], #[id number], #[id number], #[id number] could not be added to this patient's chart. Please review these documents and add these problems to the patient's chart manually as needed. Problem Notes None recorded. Procedures Surgical History Date Name Laterality Status Provider Name and Address Organization Details Recorded Time 11/28/19 25 Medicare Wellness Visit active Shani Duran [facility] 03/15/2024 08:08:37 03/26/19 24 Post hospital/SNF follow-up/Transiti onal Care completed Shani Duran [facility] 03/25/2023 16:41:15 09/03/19 23 Medicare Wellness Visit completed Malka Storm [facility] 09/02/2022 13:42:21 02/20/19 23 Post hospital/SNF follow-up/Transiti onal Care completed Traci Chun MA [facility] 02/19/2022 09:49:32 09/02/19 22 Medicare Wellness Visit completed Rosa [facility] 09/01/2021 15:57:48 09/02/19 22 Alcohol use screening completed [facility] 09/01/2021 15:57:48 09/02/19 22 Cardiovascular disease risk reduction counseling completed [facility] 09/01/2021 15:57:48 07/17/19 22 42460: Therapeutic Exercise completed Maranda Dean [address] [place] [address], [address], [facility] 07/16/2021 13:46:48 07/17/19 22 34291: Manual Therapy completed Maranda Dean [address] [place] [address], [address], [facility] 07/16/2021 13:47:09 07/17/19 22 Treatment and Advice completed Maranda Perezhoang [address] [place] [address], [address], [facility] 07/16/2021 13:48:02 07/10/19 22 13954: Therapeutic Exercise completed Maranda Perezhoang [address] [place] [address], [address], [facility] 07/09/2021 19:18:44 07/10/19 22 68816: Manual Therapy completed Maranda Perezhoang [address] [place] [address], [address], [facility] 07/09/2021 19:19:21 07/10/19 22 Neuromuscular re-education completed Maranda Chrishoang [address] [place] [address], [address], [facility] 07/09/2021 19:18:37 07/10/19 22 Treatment and Advice completed Maranda Chrishoang [address] [place] [address], [address], [facility] 07/09/2021 19:19:58 07/01/19 22 66309: Therapeutic Exercise completed Maranda [address], [address], [facility] 06/30/2021 14:25:49 07/01/19 22 62129: Manual Therapy completed Maranda Perezhoang [address] [place] [address], [address], [facility] 06/30/2021 14:25:47 07/01/19 22 Treatment and Advice completed Maranda Perezhoang [address] [place] [address], [address], [facility] 06/30/2021 14:26:27 06/24/19 22 50107: Manual Therapy completed Maranda [address]aryn[address], [address], [facility] 06/23/2021 13:00:50 06/24/19 22 Neuromuscular re-education completed Maranda [address], [address], [facility] 06/23/2021 13:05:30 06/17/19 22 01928: Manual Therapy completed Maranda Jermaine [address] [place] [address], [address], [facility] 06/16/2021 20:58:43 06/17/19 22 Neuromuscular re-education completed Maranda Kohoang [address] [place] [address], [address], [facility] 06/16/2021 20:58:02 06/03/19 22 Physical Activity Counselling completed Marandamack Dean [address] [place] [address], [address], [facility] 06/02/2021 14:26:29 06/03/19 22 85433: PT Eval Low Complexity completed Marandamack Dean [address] [place] [address], [address], [facility] 06/02/2021 14:26:36 08/30/19 21 Medicare Wellness Visit completed Lissette Olivo MA [facility] 08/29/2020 08:18:39 08/30/19 21 Cerumen Removal - Irrigation/Lavage completed Donna Escamilla CMA [facility] 08/29/2020 14:42:58 08/25/19 21 Cerumen Removal - Irrigation/Lavage completed Judi Pedro LPN [facility] 08/24/2020 13:13:41 08/29/19 20 Medicare Wellness Visit completed Boyd Vidal MD [address] [place] [address], [address], [facility] 08/28/2019 20:28:00 08/29/19 20 prevention-cardiov ascular risk reduction counseling completed Boyd Vidal MD [address] [place] [address], [address], [facility] 08/28/2019 20:28:00 08/02/19 19 Medicare Wellness Visit completed VANITA Saavedra [facility] 08/01/2018 13:46:08 06/10/19 19 POC Urinalysis Testing completed VANITA Saavedra [facility] 06/09/2018 16:25:47 07/15/19 18 Medicare Wellness Visit completed Shawn Elkins MA [facility] 07/14/2017 13:13:45 07/08/19 17 Medicare Wellness Visit completed Donna Escamilla CMA [facility] 07/07/2016 12:54:51 06/25/19 16 Medicare Wellness Visit completed Shawn Elkins MA [facility] 06/25/2015 14:59:03 09/19/19 15 Cerumen Removal completed Liliana Smith LPN [facility] 09/18/2014 16:02:45 06/19/19 15 Medicare Wellness Visit completed Shawn Elkins MA [facility] 06/18/2014 14:15:48 06/06/19 14 Medicare Wellness Visit completed Charlotte Mcfarlane MA [facility] 06/05/2013 13:23:28 05/06/19 13 Medicare Wellness Visit completed Shawn Elkins MA [facility] 05/05/2012 14:21:46 02/15/18 93 Other (specify) completed Not Available [facility] 01/01/2011 06:05:52 02/15/18 80 Other (specify) completed Not Available [facility] 01/01/2011 06:05:52 Imaging Results None recorded. Procedure Notes None recorded. Medical Equipment None Reported. Allergies Allergen ID Allergen Name Allergen Category Reaction Reaction Severity Criticality Documentation Date Start Date Code Code System Note Provider Name and Address Organization Details Recorded Time 568927 codeine medicatio n headache Not available Not available 06/18/2014 2670 RxNorm ALONDRA Moran [facility] 5 14:31:01 701002 clindamyc in Not available abdominal pain moderate Not available 08/29/20202020 2582 RxNorm ALONDRA Baldwin [facility] 3 12:04:22 Medications Name Sig Start Date Stop Date Status Note LastModified by Organization Details LastModified Time celecoxib 200 mg capsule Take 1 capsule twice a day by oral route with meals. 06/09 completed Not Available Not Available Not Available amoxicill in 500 mg capsule TAKE 2 CAPSULES BY MOUTH TWICE A DAY FOR 14 DAYS 06/24 completed Not Available Not Available Not Available atorvasta tin 40 mg tablet TAKE 1 TABLET BY MOUTH AT BEDTIME 03/16 completed Not Available Not Available Not Available butalbita l-acetami nophen-ca ffeine 50 mg-325 mg-40 mg capsule take 2 tablets by mouth every 4 hours if needed for SEVERE HEADACHE . LIMIT USE ABLE 12/17 completed duplicat e Not Available Not Available Not Available prednison e 10 mg tablet TAKE 4 TABLETS BY MOUTH EVERY MORNING FOR 2 DAYS, THEN 3 TABLETS ... (REFER TO PRESCRIP TION NOTES). 08/05 completed Not Available Not Available Not Available Carafate 1 gram tablet Take 1 tablet 4 times a day by oral route. 05/04 completed [facility] [place] [facility] 03/13/24 Not Available Not Available Not Available Topamax 25 mg tablet Take 1 tablets by oral route once a day x 1 week, then 2 tabs QD x 1 weeks, then 3 tabs QD x 1 wwek, then 4 tabs QD. 2008 active Not Available Not Available Not Avai lable ibuprofen 800 mg tablet TAKE 1 TABLET THREE TIMES A DAY NEEDED 07/29 completed on eliashlynis- Rare Not Available Not Available Not Available alprazola m 1 mg tablet TAKE TABLET BY MOUTH 1 HOUR BEFORE INJECTIO N 03/26 completed Not Available Not Available Not Available ofloxacin 0.3 % eye drops INSTILL 1 DROP IN LEFT EYE FOUR TIMES A DAY active Not Available Not Available No t Available clarithro mycin 500 mg tablet TAKE 1 TABLET BY MOUTH EVERY 12 HOURS FOR 14 DAYS 06/24 completed Not Available Not Available Not Available hydrocodo ne 5 mg-acetam inophen 325 mg tablet 1 TABLET BY MOUTH 3 TIMES A DAY NEEDED 03/26 completed Not Available Not Available Not Available promethaz ine 12.5 mg tablet active Not Available Not Available No t Available prednison e 20 mg tablet Take 3 tabs a day for 3 days, then 2 tabs a day fo 3 days, then 1 tab a day for 3 days 05/04 completed Not Available Not Available Not Available prednison e 5 mg tablet PLEASE SEE ATTACHED FOR DETAILED DIRECTIO NS 09/01 completed Not Available Not Available Not Available clindamyc in HCl 150 mg capsule TAKE 1 CAPSULE 4 TIMES A DAY 08/29 completed Not Available Not Available Not Available acetamino phen 300 mg-codein e 30 mg tablet TAKE 1 TABLET BY MOUTH EVERY 4-6 HOURS NEEDED 08/05 completed Not Available Not Available Not Available sulfameth oxazole 800 mg-trimet hoprim 160 mg tablet TAKE 1 TABLET BY MOUTH EVERY 12 HOURS FOR 7 DAYS 05/04 completed Not Available Not Available Not Available peg-elect rolyte solution 420 gram oral solution MIX AND DRINK 240MLS BY MOUTH EVERY 15 MINUTES DIRECTED 06/24 completed Not Available Not Available Not Available tramadol 50 mg tablet TAKE 1 TABLET BY MOUTH 3 TIMES A DAY as needed FOR severe PAIN active Not Available Not Available No t Available zolmitrip frias 5 mg tablet Take one tab by oral route at onset of migraine . May repeat after two hours if headache recurs. active Not Available Not Available No t Available butalbita l-acetami nophen-ca ffeine 50 mg-325 mg-40 mg tablet TAKE 2 TABLETS BY MOUTH EVERY 4 HOURS NEEDED FOR SEVERE HEADACHE LIMIT USE ABLE active Not Available Not Available No t Available pantopraz ole 20 mg tablet,de layed release TAKE 1 TABLET BY MOUTH EVERY DAY 05/04 completed Not Available Not Available Not Available ketorolac 0.5 % eye drops INSTILL 1 DROP IN LEFT EYE THREE TIMES A DAY FOLLOWIN G SURGERY FOR THREE WEEKS active Not Available Not Available No t Available oxycodone -acetamin ophen 5 mg-325 mg tablet take 1 tablet by mouth three times a day if needed 12/02 completed Not Available Not Available Not Available alprazola m 0.5 mg tablet TAKE 1 TAB 1 HOUR PRIOR TO INJECTIO N. 03/26 completed Not Available Not Available Not Available amoxicill in 875 mg tablet 11/19 completed Not Available Not Available Not Available famotidin e 20 mg tablet TAKE 1 TABLET BY MOUTH TWICE A DAY active Not Available Not Available No t Available prednisol one acetate 1 % eye drops,miguel pension INSTILL 1 DROP IN LEFT EYE THREE TIMES A DAY (SHAKE WELL) FOLLOWIN G SURGERY FOR THREE WEEKS active Not Available Not Available No t Available temazepam 15 mg capsule TAKE 1 CAPSULE BY MOUTH EVERY DAY AT BEDTIME NEEDED NO MORE THAN 3 TIMES A WEEK active Not Available Not Available No t Available oxycodone -acetamin ophen 10 mg-325 mg tablet TAKE 1 TABLET EVERY 4 6 HOURS NEEDED FOR SEVERE PAIN 02/18 completed Not Available Not Available Not Available tamsulosi n 0.4 mg capsule TAKE 1 CAPSULE BY MOUTH EVERY DAY active Not Available Not Available No t Available amitripty line 10 mg tablet active Not Available Not Available No t Available torsemide 5 mg tablet TAKE 1 TABLET BY MOUTH EVERY DAY FOR 30 DAYS 07/26 completed Not Available Not Available Not Available Lasix 20 mg tablet Take 1 tablet every day by oral route. 07/19 completed Cardiolo gy consult 07/18 Not Available Not Available Not Available timolol 0.5 % eye drops INSTILL 1 DROP INTO AFFECTED EYE(S) BY OPHTHALM IC ROUTE 2 TIMES PER DAY 07/01 completed Not Available Not Available Not Available cyanocoba ankit (vit B-12) 1,000 mcg/mL injection solution Inject 1 mL every month by subcutan eous route. 2024 active Not Available Not Available Not Avai lable nystatin 100,000 unit/gram topical cream APPLY TO AFFECTED AREA TWICE A DAY active Not Available Not Available No t Available fluoromet holone 0.1 % eye drops,miguel pension active Not Available Not Available Not Available naproxen 500 mg tablet,de layed release active Not Available Not Available Not Available brimonidi ne 0.2 % eye drops active Not Available Not Available No t Available ibuprofen 400 mg tablet Take 1 tablet every 6 hours by oral route as needed. 2011 active Not Available Not Available Not Avai lable timolol 0.25 % eye drops active 1 BID Not Available Not Available No t Available omeprazol e 20 mg capsule,d elayed release TAKE1 CAPSULE BY MOUTH 2 TIMES A DAY MAY OPEN CAPSULE AND TAKE WITH APPLESAU CE 02/20 completed Not Available Not Available Not Available diltiazem CD 120 mg capsule,e xtended release 24 hr TAKE 1 CAPSULE BY MOUTH EVERY DAY 08/24 completed Not Available Not Available Not Available dorzolami de 22.3 mg-timolo l 6.8 mg/mL eye drops INSTILL 1 DROP INTO BOTH EYES TWICE A DAY active Not Available Not Available No t Available gabapenti n 100 mg capsule active Not Available Not Available Not Available metoprolo l succinate ER 25 mg tablet,ex tended release 24 hr TAKE 1 TABLET BY MOUTH EVERY DAY FOR 30 DAYS 09/02 completed Not Available Not Available Not Available lotepredn ol etabonate 0.5 % eye drops,miguel pension active Not Available Not Available Not Available Viagra 100 mg tablet TAKE 1/2 TABLET BY MOUTH DIRECTED NEEDED 2011 active Not Available Not Available Not Avai lable ibuprofen 600 mg tablet TAKE 1 TABLET(S ) EVERY 6 HOURS BY ORAL ROUTE NEEDED. 03/04 completed Not Available Not Available Not Available methylpre dnisolone 4 mg tablets in a dose pack TAKE 6 TABLETS ON DAY 1 DIRECTED ON PACKAGE AND DECREASE BY 1 TAB EACH DAY FOR A TOTAL OF 6 DAYS 02/18 completed Not Available Not Available Not Available timolol maleate 0.5 % eye drops LOCATION : BOTH EYES. INSTILL ONE DROP IN BOTH EYES EVERY 12 HOURS active Not Available Not Available No t Available ipratropi um bromide 42 mcg (0.06 %) nasal spray [place] 2 sprays 3 times a day by intranas al route. 2011 active Not Available Not Available Not Avai lable pilocarpi ne 2 % eye drops instill 1 drop into both eyes four times a day 07/01 completed Not Available Not Available Not Available fluticaso ne propionat e 50 mcg/actua tion nasal spray,miguel pension instill 1 spray into each nostril once daily active Not Available Not Available No t Available dicyclomi ne 10 mg capsule take 1 capsule by mouth four times a day 12/02 completed Not Available Not Available Not Available pilocarpi ne 0.5 % eye drops 09/25 completed 1 QID Not Available Not Available Not Available finasteri de 5 mg tablet TAKE 1 TABLET BY MOUTH EVERY DAY active Not Available Not Available No t Available amoxicill in 875 mg-potass ium clavulana te 125 mg tablet TAKE 1 TABLET BY MOUTH EVERY 12 HOURS FOR 7 DAYS 07/29 completed Not Available Not Available Not Available dorzolami de 2 % eye drops LOCATION : BOTH EYES. INSTILL ONE DROP IN BOTH EYES EVERY 12 HOURS active Not Available Not Available No t Available amoxicill in 500 mg-potass ium clavulana te 125 mg tablet 05/31 completed Not Available Not Available Not Available Tylenol Extra Strength 500 mg tablet prn shoulder pain 05/31 completed Not Available Not Available Not Available cyclobenz aprine 5 mg tablet TAKE 1 TABLET(S ) 3 TIMES A DAY BY ORAL ROUTE NEEDED FOR 5 DAYS. 04/14 completed Not Available Not Available Not Available lidocaine 3 %-hydroco rtisone 0.5 % rectal cream INSERT 1 APPLICAT ORFUL RECTALLY TWICE A DAY NEEDED FOR 7 DAYS 2024 active 04/27/24 pa done by phone pa denied Not Available Not Available Not Available Systane (propylen e glycol) 0.4 %-0.3 % eye drops Apply 1 drop every day by ophthalm ic route for 90 days. 2022 active Not Available Not Available Not Avai lable metoprolo l tartrate 25 mg tablet TAKE 1 TABLET BY MOUTH TWICE A DAY 06/09 completed doesnt take 06/09/18 Not Available Not Available Not Available mirtazapi ne 7.5 mg tablet take 1 tablet by mouth once daily active Not Available Not Available No t Available chlorhexi dine gluconate 0.12 % mouthwash SWISH WITH 15ML FOR 1 MINUTE AND THEN SPIT OUT. REPEAT TWICE A DAY FOR 2 WEEKS 02/18 completed Not Available Not Available Not Available magnesium daily 07/29 completed Not Available Not Available Not Available multivita min daily-oc c 07/29 completed Not Available Not Available Not Available GaviLyte- G 236 gram-22.7 4 gram-6.74 gram-5.86 gram oral solution DRINK 240 ML BY MOUTH EVERY 10 MINUTES 07/26 completed Not Available Not Available Not Available Multaq 400 mg tablet 07/07 completed Not Available Not Available Not Available Gavilax 17 gram/dose oral powder DISSOLVE 34 GRAMS IN 4 TO 8 OUNCES BEVERAGE AND DRINK TWICE A DAY active Not Available Not Available No t Available Xifaxan 550 mg tablet TAKE 1 TABLET BY MOUTH 3 TIMES A DAY FOR 14 DAYS 07/26 completed Not Available Not Available Not Available Vitamin D3 50 mcg (2,000 unit) capsule Take 1 capsule every day by oral route, for Vitamin D deficien cy. 2024 active Not Available Not Available Not Avai lable Xarelto 20 mg tablet 11/19 completed Not Available Not Available Not Available Eliquis 5 mg tablet TAKE 1 TABLET TWICE A DAY 09/11 completed decrease d to 2.5mg bid Not Available Not Available Not Available Eliquis 2.5 mg tablet TAKE 1 TABLET BY MOUTH TWICE A DAY active Not Available Not Available No t Available Fluzone High-Dose (PF) 180 mcg/0.5 mL intramusc ular syringe TO BE ADMINIST ERED BY PHARMACI ST FOR IMMUNIZA TION active Not Available Not Available No t Available Linzess 72 mcg capsule 1 CAPSULE BY MOUTH DAILY,IN STR:DO NOT CRUSH OR CHEW 05/04 completed Not Available Not Available Not Available Fluad 65yr up(PF)45 mcg(15 mcgx3)/0. 5 mL intramusc ular syringe inject 0.5 millilit ers intramus cularly 05/31 completed Not Available Not Available Not Available Vitals Date Recorded Body height Body mass index (BMI) Body weight Body temperature Oxygen saturation Oxygen saturation in Arterial blood by Pulse oximetry Heart rate Systolic blood pressure Diastolic blood pressure Provider Name and Address Organization Details Last Updated DateTime 5 177.8 cm 25.3 kg/m2 85095.2 6 g 97.7 [degF] 98 % 98 % 97 /min 120 mm[Hg] 70 mm[Hg] Charlotte Mcfarlane [facility] 5 17:40:24 Date Recorded Body height Heart rate Oxygen saturation Oxygen saturation in Arterial blood by Pulse oximetry Systolic blood pressure Diastolic blood pressure Provider Name and Address Organization Details Last Updated DateTime 5 177.8 cm 85 /min 99 % 99 % 130 mm[Hg] 80 mm[Hg] Roxana Zhao [facility] 5 12:08:50 Social History Question Answer Notes LastModified by Organization Details LastModified Time Tobacco Smoking Status Never Smoker Not Available [facility] 01/01/2011 04:54:19 Do You Have An Advance Directive? No Information not available 02/20/2022 What Is Your Level Of Alcohol Consumption? None Information not available 09/01/2021 What Is Your Level Of Caffeine Consumption? Occasional Information not available 05/05/2012 How Much Tobacco Do You Chew? 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 REGULAR Home Cooked ([employer]IST[employer] Cooks), Rice, Vegs, [place], Water, Low Sugar Low Sodium Information not available 09/01/2021 Which Illicit Or Recreational Drugs Have You Used? None [email or web address] [id number] Information not available 01/01/2011 Do You Or Have You Ever Used E-cigarettes Or Vape? 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 No Information not available 09/01/2021 How Many Days In The Past Year Have You Had A Heavy Drinking Consumption (4+ Female, 5+ Male)? 0 Information not available 05/05/2012 Are There Any Guns Present In Your Home? No [email or web address] [id number] Information not available 01/01/2011 Do You Use Insect Repellent Routinely? Yes Information not available 09/01/2021 Live Alone Or With Others? Alone [employer] 30 H/wk (shops) Information not available 02/20/2022 Patient Has Health Care Proxy Signed And In Chart Yes [email or web address] Information not available 09/04/2022 CCM Consent Discussion 12/02/2022 [email or web address] Information not available 12/09/2022 Marital Status Partner - Ava (neighbor) Information not available 02/20/2022 Mosquito Repellent Used Routinely No Information not available 02/20/2022 What Was The Date Of Your Most Recent Tobacco Screening? 09/02/2022 [email or web address] Information not available 09/02/2022 How Many Children Do You Have? 5 None Local; [place], [place], [place], [facility], [place] - 6 Grandkids Information not available 06/25/2015 What Is Your Relationship Status? Information not available 09/01/2021 Do You Use Your Seat Belt Or Car Seat Routinely? Yes Information not available 09/01/2021 Seat Belts Used Routinely Yes Patient Does Not Drive Information not available 02/20/2022 Are You Sexually Active? Yes Information not available 05/05/2012 Smoke Alarm In Home Yes Information not available 02/20/2022 Do You Have Smoke And Carbon Monoxide Detectors In Your Home? Yes Information not available 09/01/2021 Are You Passively Exposed To Smoke? No Information not available 09/01/2021 Do You Or Have You Ever Used Smokeless Tobacco? Never Used Smokeless Tobacco Information not available 06/01/2019 How Much Tobacco Do You Smoke? No [email or web address] [id number] Information not available 01/01/2011 What Types Of Sporting Activities Do You Participate In? None [email or web address] [id number] Information not available 01/01/2011 General Stress Level High Information not available 02/20/2022 Do You Use Sunscreen Routinely? Yes Information not available 09/01/2021 How Many Years Have You Smoked Tobacco? 0 Information not available 06/01/2019 Do You Or Have You Ever Used Any Other Forms Of Tobacco Or Nicotine? No [email or web address] Information not available 12/02/2022 Sex: Male Functional Status Question Answer Note LastModified by Organizat ion Details LastModified Time What is your exercise level? Moderate Isometric exercises daily Information not available 03/27/2008 Mental Status None recorded. Family History Relationship Description Onset Age of this Age Resolved Age Notes LastModified by Organization Details LastModified Time Mother Problem 99 Unknow n [email or web address] Not available 06/25/2015 15:59:06 Father Problem 98 Unknow n [email or web address] Not available 06/25/2015 15:59:06 Sister Pulmonary embolism 78 after travel [email or web address] Not available 08/29/2019 08:45:15 Sister Malignant neoplasm of urinary bladder 77 [email or web address] Not available 2016 14:29:06 Notes:Denies DM, CAD, HTN, l ipids, cancer; Kids [facility] Medical History Condition Response Atrial Fibrillation Y Cerebral Vascular Accident Y Colon Polyps Y Migraine Headaches Y Erectile Dysfunction Y Chronic Neck Pain Y ENT Y Glaucoma Y Kidney Disease Y Chronic Back Pain Y Immunizations Vaccine Type Date Status Note Provider Robert cuenca and Address Organization Details Recorded Time zoster live 2 completed Not Available [facility] 03/04/2019 02:16:32 Td (adult), 5 Lf tetanus toxoid, preservative free, adsorbed 9 completed Not Available [facility] 03/04/2019 02:28:15 Influenza, split virus, trivalent, PF 3 completed Not Available [facility] 03/04/2019 02:31:49 Influenza, split virus, trivalent, PF 9 completed Not Available [facility] 03/04/2019 02:22:05 pneumococcal polysaccharide PPV23 9 completed Not Available [facility] 03/04/2019 02:19:47 Influenza, split virus, trivalent, PF 3 completed Not Available [facility] 03/04/2019 02:37:17 Influenza, high-dose, trivalent, PF 4 completed Not Available [facility] 03/04/2019 02:34:15 Pneumococcal conjugate PCV 13 5 completed Not Available [facility] 03/04/2019 02:27:11 Influenza, high-dose, trivalent, PF 6 completed Not Available [facility] 03/04/2019 02:21:04 Influenza, high-dose, trivalent, PF 7 completed Not Available [facility] 03/04/2019 02:22:03 Td (adult), 2 Lf tetanus toxoid, preservative free, adsorbed 9 completed Not Available [facility] 03/04/2019 02:24:00 influenza, unspecified formulation 8 completed Roxana Zhao CMA null, [facility] 05/04/2024 12:04:16 Influenza, high-dose, quadrivalent, PF 0 completed Briana Mas LPN null, [facility] 11/21/2019 09:40:16 Influenza, high-dose, trivalent, PF 9 completed Roxana Zhao CMA null, [facility] 05/04/2024 12:04:16 Influenza, high-dose, quadrivalent, PF 2 completed Marquita Kraft CMA null, [facility] 11/24/2021 14:20:29 COVID-19, mRNA, LNP-S, PF, 30 mcg/0.3 mL dose 1 [facility] 12:04:33 COVID-19, mRNA, LNP-S, PF, 30 mcg/0.3 mL dose 1 completed [facility] 05/04/2024 12:04:33 Influenza, split virus, trivalent, preservative 0 completed Not Available [facility] 03/04/2019 02:17:50 COVID-19, mRNA, LNP-S, bivalent, PF, 30 mcg/0.3 mL dose 2 completed Emma Andersen LPN null, [facility] 04/21/2022 11:49:10 influenza, unspecified formulation 3 completed [facility] 05/04/2024 12:04:33 Influenza, adjuvanted, trivalent, PF 9 completed [facility] 05/04/2024 12:04:33 Influenza, high-dose, trivalent, PF 8 completed [facility] 05/04/2024 12:04:33 Influenza, adjuvanted, quadrivalent, PF 3 completed [facility] 05/04/2024 12:04:33 Influenza, adjuvanted, quadrivalent, PF 1 completed [facility] 05/04/2024 12:04:33 COVID-19, mRNA, LNP-S, PF, 30 mcg/0.3 mL dose 1 completed [facility] 05/04/2024 12:04:33 COVID-19, mRNA, LNP-S, PF, 30 mcg/0.3 mL dose, sneha-sucrose 2 completed [facility] 05/04/2024 12:04:33 COVID-19, mRNA, LNP-S, bivalent, PF, 30 mcg/0.3 mL dose 2 [facility] 12:04:33 RSV, bivalent, protein subunit RSVpreF, diluent reconstituted, 0.5 mL, PF 3 completed Roxana Zhao CMA null, [facility] 05/04/2024 12:04:33 COVID-19, mRNA, LNP-S, PF, sneha-sucrose, 30 mcg/0.3 mL 3 [facility]/2024 12:04:33 COVID-19, mRNA, LNP-S, PF, sneha-sucrose, 30 mcg/0.3 mL 4 [facility]04/2024 12:04:33 Influenza, high-dose, trivalent, PF 4 [facility] 05/04/2024 12:04:33 Past Encounters Encounter ID Performer Location Encounter Start Date Encounter Closed Date Diagnosis/Indication Diagnosis SNOMED-CT Code Diagnosis ICD10 Code Diagnosis Note [id number] [facility], [address] [address] 01/19/2001 00:00:00 03/07/2008 02:02:29 [id number] [facility], OFFICE [address] [facility] [place] bhatti [id number] 1 06/30/2001 17:30:00 03/07/2008 02:02:29 [id number] [facility], OFFICE [address] [facility] [place] bhatti [id number] 1 09/07/2001 10:44:11 03/07/2008 02:02:29 [id number] [facility] [address] [facility] [place] Bhatti [id number] 1 10/13/2001 07:04:57 03/07/2008 02:02:29 [id number] [facility], OFFICE [address] [facility] [place] bhatti [id number] 1 07/11/2003 11:07:51 07/11/2003 11:56:08 [id number] , [facility], OFFICE [address] [place] [address] 1 04/01/2004 16:40:00 03/07/2008 02:02:29 [id number] [facility], OFFICE [address] AL[place]A [id number] 1 04/11/2004 10:38:06 04/11/2004 12:33:27 [id number] Radiology , [facility] ALONDRA [id number] 1 04/11/2004 11:12:10 04/11/2004 12:27:43 [id number] Physical Therapy, [facility] [place] [address] 1 04/16/2004 10:26:08 04/16/2004 15:58:06 [id number] Physical Therapy, [facility] [place] [address] 1 04/22/2004 12:54:45 04/23/2004 07:07:02 [id number] Physical Therapy, [facility] [place] [id number] 1 04/25/2004 10:54:16 04/26/2004 12:44:25 [id number] Physical Therapy, [facility] [place] [address] 1 04/29/2004 10:55:09 05/01/2004 07:10:54 [id number] Physical Therapy, [facility] [place] [address] 1 05/02/2004 13:03:07 05/05/2004 07:25:09 [id number] Physical Therapy, [facility] [place] [address] 1 05/09/2004 10:50:37 05/09/2004 12:32:49 [id number] Physical Therapy, [facility] [place] [address] 1 05/14/2004 13:25:25 05/14/2004 15:39:12 [id number] Physical Therapy, [facility] [place] [address] 1 05/26/2004 12:32:06 05/27/2004 07:11:14 [id number] Physical Therapy, [facility] [place] [id number] 1 05/29/2004 11:03:34 05/29/2004 14:31:36 [id number] Physical Therapy, [facility] [place] [id number] 1 06/04/2004 10:57:47 06/05/2004 07:29:52 [id number] [facility], OFFICE [address] [place] [address] 1 06/22/2005 12:53:58 06/22/2005 15:20:48 [id number] LAB - [facility] [place] [id number] 1 07/01/2005 09:52:37 07/01/2005 09:52:43 [id number] Physical Therapy, [facility] [place] [id number] 1 07/01/2005 08:49:41 07/02/2005 13:05:44 [id number] [facility], [place] [id number] 1 11/07/2005 10:29:48 11/07/2005 12:34:35 [id number] Radiology , [facility] [address] [place] [address] 1 11/09/2005 13:52:24 11/09/2005 16:24:20 [id number] [facility], [place] [id number] 1 11/10/2005 13:30:34 11/10/2005 15:33:03 [id number] [facility], OFFICE [address] [place] [address] 1 06/14/2006 13:19:32 06/14/2006 17:08:11 [id number] [facility], OFFICE [address] [place] [address] 1 03/27/2008 09:08:23 03/28/2008 09:41:07 [id number] [facility], [place] [address] 1 03/27/2008 00:00:00 04/10/2008 02:02:03 [id number] [facility], OFFICE [address] [place] [id number] 1 06/19/2009 13:56:28 06/20/2009 08:40:28 [id number] [facility], OFFICE [address] bhatti, [place] [id number] 1 07/04/2009 14:59:20 07/05/2009 08:10:59 [id number] [facility], OFFICE [address] b[address]ti, [place] [id number] 1 01/24/2010 07:10:37 01/24/2010 15:21:54 [id number] [facility], OFFICE [address]ti, [place]ON[place] [id number] 1 02/18/2010 09:19:21 02/19/2010 08:49:51 [id number] [facility], OFFICE [address], [place] [id number] 1 06/03/2010 12:44:30 06/03/2010 14:28:48 [id number] Shawn Elkins MA [facility], OFFICE [address], [place] [id number] 1 04/22/2011 12:50:54 04/23/2011 08:26:19 [id number] Physical Therapy, [place] [address] [place] [id number] 1 05/28/2011 13:54:24 05/29/2011 09:00:47 [id number] Physical Therapy, [place] [address] [place] [address] 1 06/10/2011 11:28:54 06/11/2011 13:12:33 [id number] Physical Therapy, [place] [address] [place] [address] 1 06/12/2011 11:24:04 06/15/2011 08:17:10 [id number] Porsha Guerra LPN [facility], OFFICE [address] [place] [address] 1 02/29/2012 13:35:51 02/29/2012 13:56:00 [id number] Boyd Vidal MD [facility], OFFICE [facility] [place] [id number] 1 05/05/2012 13:59:36 05/05/2012 15:22:30 [id number] Phi Upton [facility], OFFICE [facility] [place] [id number] 1 10/27/2012 14:56:32 10/27/2012 15:38:13 Influenza vaccine needed [id number] Increased blood pressure [id number] Blood pressure normal. High blood pressure is NOT present. Ulcer of palate [id number] Traumatic. Can use listerine or mouthwash but should resolve spontaneou sly. Mass of maninder dy structure [id number] Calcified skull mass is presumably benign. No followup needed. Posterior rhinorrhea [id number] I suspect this relates to pilocarpin e. [id number] [facility], OFFICE [address] [facility] [place] [id number] 01/11/2013 12:53:10 01/16/2013 09:27:08 Nasopharyngitis [id number] Most likely viral P. Rest, fluids, unable to take OTC cold meds due to glaucoma but may try Humabid, saline rinses, and [place]. Follow up for persistent symptoms, or any worsening. [id number] [facility], OFFICE [address] [facility] [place] [address] 06/05/2013 13:16:13 06/06/2013 08:35:12 Adult health examination [id number] Colonoscop y 2009 found 2 tubular adenomas, recommend f/u in 2014, checking with Dr. Kate's office for their recommenda tion. Legally blind man with migraines, normotensi ve, mild neck pain with numbnes radiating to fingers intermitte ntly. Discussed diet, exercise, check lipids and glucose, see Risk Assessment and Lifestyle Change Counseling section above. Counseling [id number] Migraine without aura 20734019 Pt uses Fioricet often, discussed medication rebound headaches. PT is adamant that he does not have them, and is firm in his belief that this medication is the only effective treatment. Discussed using medication as infrequent ly as possible. Discussed that insurance may not cover a 100 tablet prescripti on, will submit. Glaucoma 23415258 Legall y blind, followed by Dr. Bajwa. Constipation 08559169 Pt experience ing periodic constipati on due to soft diet as is having extensive dental work. Discussed adding bulk fiber to diet, maintainin g hydration. F/U PRN. 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 It may be a bony skull exostosis. I do not think it is a malignancy . I suppose it could be Pagets' disease. We will xray. I will check an alk phos below. Dupuytren's disease 691813241 Discussed diagnosis. Not functional ly limiting. Observe. Malaise and fatigue 707554864 Fatigues is common. It has a prevalence of 6-7.5% in the general population and 21-33% percent in primary care practices. Common causes include psychologi katherin factors such as anxiety, depression , somatizati on, substance abuse or withdrawl (which in some primary care series is the cause of fatigue in 74% of patients); inadequate or nonrestora tive sleep (including sleep apena and RLS) and medication s (Hypnotics , Antihypert ensives, Antidepres sants). Less common causes include occult medical illnesses (Hypothyro idism, Diabetes mellitus, Apathetic hyperthyro idism, Pituitary insufficie ncy, Hypercalce gabe, Adrenal insufficie ncy, Chronic renal failure, Hepatic failure, Occult malignancy , Severe anemia, CHF, COPD, connective tissue disease); infections , and idiopathic chronic fatigue, chronic fatigue syndrome, and fibromyalg ia. Appropriat e laboratory testing has been ordered. Sleep hygiene including appropriat e time for sleep, using the bed/bedroo m for sleep only, avoiding clock watching, maintainin g a cool sleep environmen t, and appropriat e response to inability to fall asleep/ret urn to sleep addressed. Followup for new symptoms or if fatigue fails to resolve in 2-4 weeks. Neoplasm of colon 121076228 Due 11/29. Can schedule in late summer or fall. [id number] MD NAPOLEON Young, [facility], OFFICE [address] [facility] [place] [address] 06/18/2014 13:57:46 06/18/2014 15:39:15 Adult health examination 235975052 Discussed healthy diet, regular exercise, stress reduction, and the importance of achieving and maintainin g a healthy weight. Recommende d routine use of seat belts, helmets for high velocity sports, and applicatio n of sunscreen and insect repellent. Recommende d completion of a Health Care Proxy. Administra tion of pneumococcal vaccine [id number] Glaucoma 06977747 Legall y blind, being managed by Dr Garett Irving dney disease stage 3 [id number] Isolated finding. Could be lab error. Will check UA and repeat test in 6 months. Migraine without aura 73081013 Underlying migraine with transforma tion due to analgesic overuse. I recommend he try Alleve instead of ibuprofen. Take it with food and stop if he develop stomach upset or pain. He may continue to use the Butalbital but I have asked him to use the minimum amount he can and to avoid abrupt discontinu ation. [id number] Anita Gentile , [facility], OFFICE [address] [facility] [place] [address] 09/18/2014 15:21:04 09/19/2014 15:29:33 Impacted cerumen 58198439 [id number] GALINDO Rizzo, [facility], OFFICE [address] [facility] [address] 03/09/2015 12:09:31 03/11/2015 07:36:55 Foot pain 81128999 M79.673 I palpated no definite lump or mass in R foot plantar surface, but with report of at times severe pain, will refer to ortho for eval. Varicose v eins of lower extremity 11427435 I83.90 R leg with mild varicositi es. Discussed pathophys and potential treatment. I reassured pt that these are unlikely to cause him any major difficulty unless they worsen greatly. I reassured him that in the absence of sudden onset unilateral leg swelling and pain, a DVT is highly unlikely. Advised avoiding long periods of inactivity . Epidermoid cyst of skin 618008595 L72.0 reassuranc e re roman cyst on R side of forehead [id number] Boyd Vidal MD , [facility], OFFICE [address] [facility] [place] [address] 06/25/2015 14:54:36 06/25/2015 16:11:49 Adult health examination 195612585 Z00.00 Discussed healthy diet, regular exercise, stress reduction, and the importance of achieving and maintainin g a healthy weight. Recommende d routine use of seat belts, helmets for high velocity sports, and applicatio n of sunscreen and insect repellent. Recommende d completion of a Health Care Proxy. Migraine without aura 56 939659 G43.009 Underlying migraine with transforma tion due to analgesic overuse. I recommend he limit ibuprofen and use only 600 mg. Take it with food and stop if he develop stomach upset or pain. He may continue to use the Butalbital but I have asked him to use the minimum amount he can and to avoid abrupt discontinu ation. Glaucoma 75416130 H40.9 Legally blind, being [facility] [id number] N18.3 Stable, CKD 2-3. Off ibuprofen more than a week, will recheck labs now along with SPEP. If stable, probably OK to use ibuprofen judiciousl y. If better, will need to re-assess NSAID use. A renal ultrasound may also be warranted. Adenomatou s polyp of colon 326877028 D12.6 2009 adenoma, 2015 normal. Reassess fitness for colo in 2020 [id number] Jessy Huber MA , [facility], OFFICE [address] [facility] [place] [address] 12/07/2015 09:48:37 12/07/2015 11:28:01 Active or passive immunization 716764982 Z23 [id number] Al Meyers PA-C , [facility], OFFICE [address] [facility] [address] 03/04/2016 16:45:13 03/05/2016 08:23:48 Low back pain 822172141 M54.5 No red flags.Tria l cyclobenza alexy.Cont inue ibuprofen, heat.Discu ssed ergonomics and gentle exercises today.F/U for worsening or failure to improve within 2-3 weeks. Consider PT eval. [id number] Boyd Vidal MD , [facility], OFFICE [address] [facility] [place] [address] 04/14/2016 13:52:38 04/14/2016 14:49:00 Atrial fibrillation 34509568 I48.91 Discussed diagnosis and management . I reviewed UBV5OH-IAN c risk score = 1 which is 0.6% risk of stroke annually. I explained that his risk could be higher given that his recent splenic infarct and his EVB9SC-JJR c score may under-repr esent this. Naya knowles Lainey would like a second opinion on need for anticoagul ation and so I will refer him to Dr Dubon. We also reviewed the need for rate control. He is mildly tachycardi c but asymptomat ic. He declines to start CaCB now. He is aware of the detrimenta l effects of sustained tachycardi a on myocyte function and risk for cardiomyop athy. He will follow up in 1 month. Splenic infarction 69452 003 D73.5 Discussed diagnosis and management . See comments above regarding need for anticoagul ation. Constipation 23887508 K5 9.00 Discussed common causes and and natural history of constipati on. I recommende d a diet high in fiber (20-30 g/day) or supplement ation with Fibercon or Metamucil as needed. A stool softener like doccusate (brand-nam e Colace), available over the counter, can be used in doses of 100 mg once or twice a day; it is a capsule of soap which helps to lubricate passage of stool. If laxatives are used, powdered non-stimul ant agents are preferred. Glycolax (brand name Miralax), available over the counter, should be taken 1-1.5 capfuls daily mixed in coffee, tea, or juice can be used as needed for a soft, effortless bowel movement daily. If no bowel movement in 3 days, a tap water, soap suds, or Fleet enema or Dulcolax suppositor y can be used. Return if unable to have a bowel movement, if abdominal pain or bleeding develop, or if fever occurs. [id number] Boyd Vidal MD , [facility], OFFICE [address] [facility] [place] [address] 05/12/2016 07:51:42 05/12/2016 08:32:06 Atrial fibrillation 05307075 I48.91 Reviewed diagnosis and management . I reviewed TCO6VX-UPS c risk score = 1 which is 0.6% risk of stroke annually. I explained that his risk could be higher given that his recent splenic infarct and his [id number] c score may under-repr esent this. We also reviewed the need for rate control. He remains mildly tachycardi c but asymptomat ic. He declines to start CaCB now. He is aware of the detrimenta l effects of sustained tachycardi a on myocyte function and risk for cardiomyop athy. He will follow up in 1 month. Splenic infarction 25269 003 D73.5 Discussed diagnosis and management . See comments above regarding need for anticoagul ation. Seeing Moncho 05/21. Constipation 13165574 K5 9.00 Resolved off opiates. Unexplaine d weight loss 417666272 R63.4 May be multifacto rial including anxiety and sleeplessn ess. Recheck in 2 months, after GI evaluatio, sooner new symptoms. [id number] MD NAPOLEON Young, [facility], OFFICE [address] [facility] [place] [address] 06/30/2016 07:54:12 06/30/2016 08:58:20 Atrial fibrillation 94467535 I48.91 Reviewed diagnosis and management . He seems to be in AFib today but appears rate controlled . He will follow up in 2 monts with Jagdish. Splenic infarction 94369 003 D73.5 On apixiban. Unexplaine d weight loss 368744683 R63.4 Weight is stable. May be multifacto rial including anxiety and sleeplessn ess. Recheck in 2 months, after GI evaluatio, sooner new symptoms. Pain in face 77105888 R5 1 Location seems likely to relate to dental surgery. Recommend he discuss with surgeon. He may need a CT scan. I do not think he has sinus disease. [id number] Cindy BENDER, [facility], OFFICE [address] [facility] [place] [address] 07/07/2016 12:50:10 07/07/2016 15:53:11 Adult health examination 258591743 Z00.00 Discussed healthy diet, regular exercise, stress reduction, and the importance of achieving and maintainin g a healthy weight. Recommende d routine use of seat belts, helmets for high velocity sports, and applicatio n of sunscreen and insect repellent. Recommende d completion of a Health Care Proxy. Atrial fibrillation 4943 6004 I48.91 Reviewed diagnosis and management . He seems to be in AFib today but appears rate controlled . He will follow up in 2 months with Jagdish. He is on apixiban and will likely need to continue indefinite ly. Splenic infarction 24588 003 D73.5 On apixiban. Pain in face 60229112 R5 1 Location seems likely to relate to dental surgery. Recommend he discuss with surgeon. He may need a CT scan. I do not think he has sinus disease. Migraine without aura 56 166220 G43.009 Underlying migraine without recent analgesic overuse. I recommend he limit ibuprofen to no more than weekly and use only 600 mg. Take it with food and stop if he develop stomach upset or pain. He may continue to use the Butalbital but I have asked him to use the minimum amount he can and to avoid abrupt discontinu ation. Glaucoma 42162787 H40.9 Legally blind, being managed by Dr Garett talley dney disease stage 3 539694992 N18.3 Stable, CKD 2-3. Adenomatou s polyp of colon 673494060 D12.6 2009 adenoma, 2016 normal. Reassess fitness for colo in 2020 [id number] GALINDO Zaragoza, [facility], OFFICE [address] [facility] [place] [address] 09/25/2016 15:30:46 09/25/2016 16:12:40 Cerebrovascular accident 959858756 I63.9 MRI Acute Right MCA Stroke likely cardio embolic, pt reported missing several doses of Apixaban and not taking Atorvastat in.follow up with Neuro as directedFo llow-up with your primary care doctor in November Paroxysmal atrial fibrillation 531149456 I48.0 Patient restarted on ApixabanFo llow-up with cardiology as directed [id number] MD NAPOLEON Young, [facility], OFFICE [address] [facility] [place] [address] 11/19/2016 12:51:54 11/19/2016 14:13:15 Active or passive immunization 434857787 Z23 Atrial fibrillation 4943 6004 I48.91 Appears rate controlled . He will follow up in 2 months with Brooklynn/Xiomara mast. He is on apixiban and will need to continue indefinite ly. He declined a change to Xarelto. Splenic infarction 24665 003 D73.5 On apixiban. Pain in face 63753680 R5 1 Location seems likely to relate to dental surgery. He is following with dentists. Migraine without aura 56 633074 G43.009 Underlying migraine without recent analgesic overuse. I recommend he no longer use ibuprofen given risk for GI bleeding . He may continue to use the Butalbital but I have asked him to use the minimum amount he can and to avoid abrupt discontinu ation. Glaucoma 45871775 H40.9 Legally blind, being managed by Dr Garett Irving dney disease stage 3 507094348 N18.3 Stable, CKD 2-3. Adenomatou s polyp of colon 287042471 D12.6 2009 adenoma, 2016 normal. Reassess fitness for colo in 2020 History of cardioembolic stroke 899107898 Z86.73 Reviewed diagnosis and management . Urged excellent adherence to apixiban. [id number] Boyd Vidal MD , [facility], OFFICE [address] [facility] [place] [address] 03/16/2017 13:36:05 03/16/2017 14:26:06 Edema 149553310 R60.9 I see no edema in Lainey's feet. I do not believe he this is related to metoprolol . I told him he could talk with his cardiologi st if he wanted to try to change to a CaCB. Sciatica 02862933 M54.31 Gianni may have RLE sciatica. It is very ill-define d. I am unsure by Lainey's history whether he has UE radiculopa thy. I think Lainey is invested in the notion there is something chronicall y wrong with his neck. Lainey seems very intent on taking marijuana and is uninterest ed in any further evaluation or empiric treatments to address his nonspecifi c complaints . We discussed marijuana. I educated him on the fact that medical marijuana is just marijuana and there is nothing medical about it. It is largely unstudied and unproven. I explained that he should really try PT first as a proven treatment for MSK complaints but he seemed uninterest ed. I also explained to Lainey I could not advise him about how to use marijuana therapeuti sandoval. I also explained concerns about safety including that Lainey is blind and anticoagul ated and a fall, which THC might cause, could be dangerous. I could not sway him. Ultimately , I told him I would seek permission from the Marijuana Committee to get him a certificat e. [id number] Boyd Vidal MD , [facility], OFFICE [address] [facility] [place] [address] 05/13/2017 12:48:22 05/13/2017 14:16:51 Sciatica 40393024 M54.31 RLE sciatica seems likely by history, though radiating symptoms have improved. He does not have confidence in PT, at least for long-term relief. He will try yoga. We discussed that he does not meet criteria for marijuana. Cervical radiculopathy 20758679 M54.12 Has multilevel DDD with foraminal narrowing. It is unclear that this is the cause of his pain but it seems likely. We discussed this in detail. He will continue to work with Donya on management . Fatigue 28678438 R53.83 Resolved. Seems unlikely to be acute anemia. I agreed to check labs that Kristyn Domingo ordered for reassuranc e. Migraine without aura 56 799768 G43.009 Underlying migraine without recent analgesic overuse. I recommend he no longer use ibuprofen given risk for GI bleeding . He may continue to use the Butalbital but I have asked him to use the minimum amount he can and to avoid abrupt discontinu ation. He declines to reduce the quantity. [id number] Boyd Vidal MD , [facility], OFFICE [address] [facility] [place] [address] 07/14/2017 13:02:19 07/14/2017 14:27:51 Adult health examination 774227166 Z00.00 Discussed healthy diet, regular exercise, stress reduction, and the importance of achieving and maintainin g a healthy weight. Recommende d routine use of seat belts, helmets for high velocity sports, and applicatio n of sunscreen and insect repellent. Recommende d completion of a Health Care Proxy. Depression screening 171 216708 Z13.89 depression screening tool administer ed, entered into emr, scored and discussed, time greater than 7.5 minutes Cervical radiculopathy 34916861 M54.12 Has multilevel DDD with foraminal narrowing. Pain is felt to be mechanical , less likely radicular. He will continue to work with Donya on management . INjections are not an option as on Apixiban. Migraine without aura 56 173642 G43.009 Underlying migraine without recent analgesic overuse. He may continue to use the Butalbital but I have asked him to use the minimum amount he can and to avoid abrupt discontinu ation. He declines to reduce the quantity. History of cardioembolic stroke 047601196 Z86.73 Reviewed diagnosis and management . Urged excellent adherence to apixiban. Atrial fibrillation 4943 6004 I48.91 Appears rate controlled . He is following with Brooklynn/Xiomara mast. He is on apixiban and will need to continue indefinite ly. He declined a change to Xarelto. Splenic infarction 71619 003 D73.5 On apixiban. Pain in face 85178144 R5 1 Location seems likely to relate to dental surgery. He is following with dentists. Glaucoma 94559565 H40.9 Legally blind, being managed by Dr Garett talley dney disease stage 3 898249028 N18.3 Mildly progressiv e, CKD 3. Caution with NSAIDs. Monitor yearly. Avoid NSAIDs. Check ultrasound . Adenomatou s polyp of colon 680849296 D12.6 2009 adenoma, 2016 normal. Reassess fitness for colo in 2020 Chronic low back pain 27 3467071 M54.5 Right low back pain felt to be mechanical or facet mediated. He does not have confidence in PT, at least for long-term relief. He will try yoga when he has [employer] hours for a ride. Could get facet injections without stopping Apixiban per PS&S [id number] Katiana Solorzano MD FP, [facility], OFFICE [address] [facility] [place] [address] 07/24/2017 11:35:53 07/26/2017 07:53:14 Acute low back pain 532438617 M54.5 This is exacerbati on of chronic low back pain. Exam consistent with both SI inflammati on and ? bulging disc. Xrays per [facility] indicate facet arthropath y. Since NSAIDs have worked well in the past, will do short course celecoxib (CVA was embolic, not ischemic). Advised patient this will help with pain as well as inflammati on, but may take a few days for full effect. He is requesting also something for more immediate pain relief, and this is reasonable for very short term (advised). He remains resistant to trial of muscle relaxants, but now willing to explore PT and facet injections through [facility] for this indication , as well as for his cervical issues. [id number] Whit Hylton MD , [facility], OFFICE [address] [facility] [place] [address] 06/09/2018 16:11:53 06/09/2018 17:13:03 Right flank pain 646163484 R10.9 chronic. very concerned that this might be related to his CKD. Seems more musculoske letal to me. no significan t change in urinary sx-will check labs and ultrasound again-if unchanged, consider physical therapy (I believe we could set it up has home PT given that he is home bound) Atrial fibrillation 4943 6004 I48.91 stable on eliquis Chronic ki dney disease stage 3 776205647 N18.3 Mildly progressiv e, CKD 3. Caution with NSAIDs. Monitor yearly. Avoid NSAIDs. Check ultrasound . [id number] Whit Hylton MD , [facility], OFFICE [address] [facility] [place] [address] 08/01/2018 13:24:41 08/01/2018 16:21:46 Adult health examination 980497172 Z00.00 loki older gentleman- -no major concerns Counseling 257169617 Z71 .9 Depression screening 171 290132 Z13.89 depression screening tool administer ed, entered into emr, scored and discussed, time greater than 7.5 minutes Active or passive immunization 469425816 Z23 Migraine without aura 56 843263 G43.009 Underlying migraine without recent analgesic overuse. He may continue to use the Butalbital but I have asked him to use the minimum amount he can and to avoid abrupt discontinu ation. He declines to reduce the quantity. History of cardioembolic stroke 062518513 Z86.73 continue on apixiban. Atrial fibrillation 4943 6004 I48.91 Appears rate controlled . He is following with Brooklynn/Xiomara mast. He is on apixiban and will need to continue indefinite ly. He declined a change to Xarelto. Splenic infarction 19002 003 D73.5 On apixiban. Chronic low back pain 27 4945169 M54.5 Right low back pain felt to be mechanical or facet mediated. He does not have confidence in PT, at least for long-term relief. He will try yoga when he has [employer] hours for a ride. Could get facet injections without stopping Apixiban per PS&S Cervical radiculopathy 88824769 M54.12 Has multilevel DDD with foraminal narrowing. Pain is felt to be mechanical , less likely radicular. He will continue to work with [facility] on management . Injections are not an option as on Apixiban. Glaucoma 93037495 H40.9 Legally blind, being managed by Dr Garett talley dney disease stage 3 473178402 N18.3 Mildly progressiv e, CKD 3. Caution with NSAIDs. Monitor yearly. Has been stable since last year Adenomatou s polyp of colon 569032395 D12.6 2009 adenoma, 2016 normal. Reassess fitness for colo in 2020 Fatigue 72795349 R53.83 Fell asleep at the dinner table. Doesn't sleep well overnight. ampoule filler questionin g b12 deficiency .-will check CBC and TSH; [id number] Whit Hylton MD , [facility], OFFICE [address] [place] [address] 06/01/2019 09:40:08 06/01/2019 11:35:47 Migraine without aura 15605799 G43.009 Hx of migraines since he was a child. They can occur a couple times a month. We've discussed risks with delmyal . He has tried many other ways to manage his migraines (amitripty line--side effects; unable to take ibuprofen as he's on a blood thinner) --butalbit al is the only thing that works. We discussed limiting as much as possible.- we discussed prescribin g # 100. Atrial fibrillation 4943 6004 I48.91 Appears rate controlled . He is following with Brooklynn/Xiomara mast. He is on apixiban and will need to continue indefinite ly. He declined a change to Xarelto. Aristides talley dney disease stage 3 305353760 N18.3 Mildly progressiv e, CKD 3. Caution with NSAIDs. Monitor yearly. Has been stable since last year History of cardioembolic stroke 940730064 Z86.73 continue on apixiban. Splenic infarction 11723 003 D73.5 On apixiban. Chronic low back pain 27 0387426 M54.5 Right low back pain felt to be mechanical or facet mediated. He does not have confidence in PT, at least for long-term relief. He will try yoga when he has [employer] hours for a ride. Could get facet injections without stopping Apixiban per PS&S Cervical radiculopathy 69404967 M54.12 Has multilevel DDD with foraminal narrowing. Pain is felt to be mechanical , less likely radicular. He will continue to work with [facility] on management . Injections are not an option as on Apixiban. Glaucoma 29654725 H40.9 Legally blind, being managed by Dr Garett gould polyp of colon 235561635 D12.6 2009 adenoma, 2016 normal. Reassess fitness for colo in 2020 [id number] Boyd Vidal MD , [facility], OFFICE 329 [facility] [place] [address] 08/29/2019 08:09:36 08/29/2019 09:22:58 Adult health examination 550651407 Z00.00 Discussed healthy diet, regular exercise, stress reduction, and the importance of achieving and maintainin g a healthy weight. Recommende d routine use of seat belts, helmets for high velocity sports, and applicatio n of sunscreen and insect repellent. Recommende d completion of a Health Care Proxy. Counseling [id number] Z71 .9 including cardiovasc ular risk reduction counseling Depression screening 171 782205 Z13.89 depression screening tool administer ed, entered into emr, scored and discussed, time greater than 7.5 minutes Migraine without aura 56 567988 G43.009 Underlying migraine without recent analgesic overuse. He may continue to use the Butalbital but I have asked him to use the minimum amount he can and to avoid abrupt discontinu ation. He declines to reduce the quantity. History of cardioembolic stroke 839534978 Z86.73 Reviewed diagnosis and management . Urged excellent adherence to Eliquis. Atrial fibrillation 4941 6004 I48.91 Appears rate controlled . He is following with Ivan mast. He remains on Eliquis. Splenic infarction 00104 003 D73.5 On Eliquis. Glaucoma 30900265 H40.9 Legally blind, being managed by Dr Bajwa Chronic ki dney disease stage 3 795480783 N18.3 Mildly progressiv e, CKD 3. Caution with NSAIDs. Monitor yearly. Avoid NSAIDs. Check ultrasound . Adenomatou s polyp of colon 518951154 D12.6 2009 adenoma, 2016 normal. Reassess fitness for colo in 2020 Legal blindness 00758317 H54.8 Legally blind, being managed by Dr Bajwa [id number] Boyd Vidal MD , [facility], OFFICE 329 [facility] [place] [address] 09/19/2019 11:28:28 09/20/2019 08:27:37 Atrial fibrillation 02717670 I48.91 Appears rate controlled . He is following with Ivan mast. I believe his Eliquis does was incorrectl y reduced; although his creatinine is >1.5, he is < 80 and his weight > 60 kg. I asked him to confirm his dose with Dr. Dubon. Chronic ki dney disease stage 3 950557767 N18.3 Mildly progressiv e, CKD 3 of unclear etiology (no HTN or DM by history). UA bland. Ultrasound 07/03 showed no obstructio n. SPEP neg 2015. Caution with NSAIDs. Monitor yearly. Can follow with me or Donald. [id number] Briana Mas LPN , [facility], OFFICE [address] [facility] [place] [address] 11/21/2019 06:46:10 11/21/2019 09:42:58 Active or passive immunization 413247208 Z23 [id number] ALFONZO Swenson , [facility], OFFICE [address] [facility] [place] [address] 01/19/2020 15:49:31 01/19/2020 16:41:48 Sciatica 38469033 M54.30 Suspect SI inflammati on vs sciatica. Low back pain radiating into both hips/butto cks. Suggest antiinflam matory such as celebrex, pt declines - states this wasn't particular ly helpful previously , Requests prednisone taper. Reviewed limited evidence for this with sciatica, risks/bene fits/side effects reviewed. F/u PRN. Acute low back pain 2788 82688 M54.5 Acute exacerbati on of chronic low back pain. Pt record supports his report of intermitte nt flares re: this issue. Declines a return to physical therapy at this time although he reports it as helpful previously . He agrees to reach out if he reconsider s this. So far heat and ibuprofen have been ineffectiv e.He is requesting something for more immediate pain relief, and this is reasonable for very short term (advised). Has tolerated tramadol and percocet previously . Given his age >75, would prefer the less sedating tramadol, risks/bene fits/side effects reviewed.Chaitanya roman is known to [facility], last seen in 2019, declines new referral. He will reach out if he reconsider s this. Continue self-care, rest and gentle stretching . No red flag symptoms, reviewed indication s for urgent eval/ED. F/u PRN. [id number] GALINDO Fernandez, [facility], OFFICE [address] [place] [address] 08/24/2020 12:08:41 08/26/2020 06:33:08 Otalgia 23847114 H92.01 Stable; Very similar presentati on previous 2/2 cerumen impaction causing discomfort resolved w/ irrigation . Unfortunat danielle we were only able to partially remove impacted cerumen today. He will use OTC debrox and has follow-up later this week to repeat irrigation and evaluation . Reviewed symptoms associated with infection in the indication s to contact the office sooner with any worsening. They expressed understand ing and agreement with plan. [id number] Whit Hylton MD , [facility], OFFICE [address] [place] [address] 08/29/2020 13:33:55 08/29/2020 14:49:16 Adult health examination 803970801 Z00.00 loki older gentleman; concerns discuss below Counseling 731729397 Z71 .9 Depression screening 171 187962 Z13.31 Screening for alcohol abuse 158009330 Z13.39 Infection of tooth 90093 4398 K04.7 prescribed clinda for infection at dental ER clinic. having significan t GI side effects-wi ll switch-pls follow up with your dentist Benign pro static hyperplasia 312154557 N40.1 with incontinen ce.-refer to urology Atrial fibrillation 4943 6004 I48.91 Appears rate controlled . He is following with Ivan mast. He is on apixiban and will need to continue indefinite ly. He declined a change to Xarelto. Chronic ki dney disease stage 3 273339050 N18[address] Bennett and this has been stable with Cr. at 1.7 Screening for malignant neoplasm of colon 500836919 Z12.11 discussed with shared decision making and he would like to proceed. Migraine without aura 56 562908 G43.009 Underlying migraine without recent analgesic overuse. He may continue to use the Butalbital but I have asked him to use the minimum amount he can and to avoid abrupt discontinu ation. He declines to reduce the quantity. History of cardioembolic stroke 609107935 Z86.73 continue on apixiban. Splenic infarction 19268 003 D73.5 On apixiban. Cervical radiculopathy 65562461 M54.12 Has multilevel DDD with foraminal narrowing. Has worked with physiatry; has paresthesi as in his right hand Glaucoma 76595908 H40.9 Legally blind, being managed by Dr Garett De La Fuente s polyp of colon 812714206 D12.6 2009 adenoma, 2016 normal. Reassess fitness for colo in 2020 Impacted c erumen of bilateral ears 6204073186 597376 H61.23 successful ly flushed [id number] Whit Hylton MD , [facility], OFFICE 329 [facility] [place] [address] 02/18/2021 11:32:10 02/18/2021 15:42:47 Atrial fibrillation 79811112 I48.91 Appears rate controlled . He is following with Ivan mast. He is on apixiban and will need to continue indefinite ly. He declined a change to Xarelto. Chronic ki dney disease stage 3 [address]82166250 N18[address] Bennett and this has been stable with Cr. at 1.7 Migraine without aura 56 030264 G43.009 Underlying migraine without recent analgesic overuse. He may continue to use the Butalbital but I have asked him to use the minimum amount he can and to avoid abrupt discontinu ation. He declines to reduce the quantity. History of cardioembolic stroke 393397756 Z86.73 continue on apixiban. Cervical radiculopathy 44909129 M54.12 Has multilevel DDD with foraminal narrowing. Has worked with physiatry; has paresthesi as in his right hand Now with acute flare of pain in right neck and shoulder; states this happens every year. At his request, will give short course of steroid/pa in medication . reviewed risks. Has contraindi cation to NSAID and no benefit from tylenol-ad vised, if not improving, needs to be seen in person Discussed indication s for new prescripti on, risks and benefits of medication , common side effects and how to manage, and reasons to notify prescriber of adverse effects or discontinu ation. Discussed indication s for new opiod presciptio n, risks and benefits of medication , common side effects and how to manage, and reasons to notify prescriber of adverse effects or discontinu ation. Do not take with alcohol, other sedating medication s or recreation al drugs, do not operate machinery or drive while taking. Bowel regimen reviewed. Recommend ailyn softener like doccusate (colace) 100 mg twice a day. May add a powdered laxative like Miralax or glycolax 1 capful a day mixed with coffee, tea, or juice as needed. These medication s are available over the counter. [id number] [facility], [address] [place] [address] 06/02/2021 10:08:38 06/02/2021 15:38:07 Neck pain 16796924 M54.2 [id number] [facility], [address] [place] [address] 06/16/2021 12:27:05 06/17/2021 07:49:47 Neck pain 63846101 M54.2 [id number] [facility], [address] [place] [address] 06/23/2021 11:33:29 06/23/2021 14:52:16 Neck pain 72782887 M54.2 [id number] ISAAK BEE MD FP, [facility], OFFICE 329 [facility] [place] [address] 06/24/2021 12:11:39 06/25/2021 07:13:53 Otalgia of right ear 2347463298 H92.01 from om, possible contributi on of cerumen impaction increasing pressure on tm. Impacted c erumen of bilateral ears 0382133141 863331 H61.23 try docusate (baby laxative) every few weeks in each ear with cotton ball to keep wax dissolved and prevent buildup. Acute righ t otitis media 017667466 H66.91 [id number] [facility], [address] [place] [address] 06/30/2021 11:58:12 06/30/2021 15:08:42 Neck pain 24520038 M54.2 [id number] [facility], [address] [place] [address] 07/09/2021 11:28:05 07/10/2021 11:27:50 Neck pain 87607085 M54.2 [id number] [facility], [address] [place] [address] 07/16/2021 11:27:07 07/16/2021 13:56:02 Neck pain 50882154 M54.2 [id number] KIARRA Ho FP, [facility], OFFICE [address] [place] [address] [place] [address] 07/29/2021 17:20:01 07/30/2021 07:00:22 Sprain of jaw 26680175 S03.40XD Normal ear examNo click or subluxatio n of TMJ but is TTPNo lymphadeno pathyDid have mouth open for extended period at the dentist recentlyHa s treated with prednisone and tramadol in the pastMassPA T checkedScr ipts sent inFollow up with your PCP or your dentist for worsening or failure to improve [id number] AUDREY Guerrero FP, [facility], OFFICE [address] [facility] [address] 09/01/2021 15:53:06 09/01/2021 16:42:46 Adult health examination 118968375 Z00.00 Doing quite well overall, continue to see specialist s and will check in with PCP in 6 mo or so Counseling 916813141 Z71 .9 including cardiovasc ular risk reduction counseling Depression screening 171 386806 Z13.31 depression screening tool administer ed, entered into emr, scored and discussed, time greater than 7.5 minutes Screening for alcohol abuse 211517400 Z13.39 No EtOH Insomnia 977645002 G47.0 0 Trial temazepam so he can get some sleep, should help daytime fatigue as well Cobalamin deficiency 190 099633 E53.8 Recheck B12 and Vit D Active or passive immunization 966121273 Z23 Chronic ki dney disease stage 3 784819806 N18.30 Very stable, f/u with nephro Atrial fibrillation 4943 6004 I48.91 Sees cardiology regularly Edema of foot 668527242 R60.0 Will take 1/2 tab furosemide tomorrow morning, and continue to avoid eating too much salt [id number] Marquita Kraft CMA FP, [facility], OFFICE [address] [place] [address] [place] [address] 11/24/2021 07:22:15 11/24/2021 14:24:03 Active or passive immunization 858234004 Z23 [id number] AUDREY Guerrero, [facility], OFFICE [address] [facility] [address] 01/20/2022 13:44:50 01/20/2022 16:23:45 Posterior rhinorrhea 44724406 R09.82 Start with fluticason e daily for this, could help sore throat and ear pressure. Cobalamin deficiency 190 356060 E53.8 Unable to tolerate oral B12 in any form, needs to go to injections Disorder of esophagus 37 587281 K22.9 Will be following with GI, needs EGD Atrial fibrillation 4943 6004 I48.91 Sees cardiology regularly [id number] AUDREY Guerrero, [facility], OFFICE [address] [facility] [address] 02/20/2022 11:53:12 02/20/2022 13:05:04 Migraine without aura 18475155 G43.009 Renew Dry eyes 473730022 H04.1 23 Suspect on and off redness from dryness, will see ophtho this month Pilar cyst of scalp 4011 49297 L72.11 Refer to derm for removal Atrial fibrillation 4943 6004 I48.91 Sees cardiology regularly Near syncope 124220544 R 55 Resolved with no true cause found in the ER [id number] Damion Dela Cruz RN , [facility], OFFICE [address] [place] [address] 02/20/2022 11:40:29 02/20/2022 14:38:09 Cobalamin deficiency 039465065 E53.8 [id number] Damion Dela Cruz RN , [facility], OFFICE [address] [place] [address] 03/16/2022 11:12:40 03/16/2022 13:12:37 Cobalamin deficiency 616758064 E53.8 Unable to tolerate oral B12 in any form, needs to go to injections [id number] Damion Dela Cruz RN , [facility], OFFICE [address] [place] [address] 04/13/2022 11:35:42 04/14/2022 06:46:26 Cobalamin deficiency 343095272 E53.8 Unable to tolerate oral B12 in any form, needs to go to injections [id number] Lewis Trejo PA-C , [facility], OFFICE [address] [place] [address] 04/21/2022 11:29:12 04/21/2022 13:14:46 Gastroesophageal reflux disease 212559882 K21.9 Pt thinks PPI was what caused him to have a burning pain in his epigastric area, and reports that treatment for H pylori seemed to provoke epigastric pain that he had not had previously . Alternatel y, PPI was tried and found ineffectiv e for the pain. He has famotidine which he has found helpful in the past, but he is reluctant to take it regularly. I reassured him this is a safe medicine without the potential termite treater SEs of PPIs. I recommende d taking it regularly twice daily until the scheduled visit with GI in 2 weeks, then review with them. Unintentio nal weight loss 356223302 R63.4 likely related to reduced appetite from untreated GERD. We reviewed a number of labs done in the past few weeks available on [facility] (BMP, TSH, CBC), all unremarkab le except for stable CKD3. Will add HFP and ESR/CRP to complete the suite of reassuranc e labs. Pre-surger y evaluation 256281469 Z01.818 Patient is at low risk of perioperat gabrile cardiopulm onary complicati ons of a low risk surgery and can proceed without further risk stratifica tion. Bilateral cataracts 9572 2003 H26.9 right cataract procedure tomorrow with Erasto. Chronic ki dney disease stage 3 105424518 N18.30 Stable, following with nephrology . Legal blindness 04360324 H54.8 unclear what benefit he will get from cataract surgery scheduled for tomorrow. [id number] KADEN Wilson, [facility], OFFICE [address] [place] [address] 05/11/2022 11:35:27 05/11/2022 11:48:57 Cobalamin deficiency 600108722 E53.8 Unable to tolerate oral B12 in any form, needs to go to injections [id number] Damion Dela Cruz RN , [facility], OFFICE [address] [place] [address] 06/08/2022 11:38:29 06/08/2022 12:17:51 Cobalamin deficiency 016103570 E53.8 Unable to tolerate oral B12 in any form, needs to go to injections [id number] KADEN Wilson, [facility], OFFICE [address] [place] [address] 07/06/2022 11:35:00 07/06/2022 12:08:37 Cobalamin deficiency 725644197 E53.8 Unable to tolerate oral B12 in any form, needs to go to injections [id number] KADEN Wilson, [facility], OFFICE [address] [place] [address] 08/03/2022 11:35:38 08/03/2022 11:54:23 Cobalamin deficiency 518453988 E53.8 Unable to tolerate oral B12 in any form, needs to go to injections [id number] Whit Hylton MD , [facility], OFFICE [address] [place] [address] 08/05/2022 08:49:45 08/05/2022 12:14:10 Atrial fibrillation 38967137 I48.91 Appears rate controlled . He is following with Brooklynn/Xiomara mast. He is on apixiban and will need to continue indefinite ly. He declined a change to Xarelto. Chronic ki dney disease stage 3 345470711 N18[address] Bennett and this has been stable with Cr. at 1.7 Gastroesop hageal reflux disease 465753541 K21.9 pepcid BID; was treated for h. pylori last year which lainey feels caused stomach upset. Unintentio nal weight loss 570944821 R63.4 about 10 lbs over the last year; Having GI upset. reviewed Dr. Kate's last note; feels his symptoms are functional . I doubt underlying cancer-saundra ck labs-discu ssed FODMAP diet. Right flank pain 5977926 09 R10.9 chronic. very concerned that this might be related to his CKD. Seems more musculoske letal to me. We have discussed this before in the past. Temporoman dibular joint disorder 43791346 M26.609 right side; has had dental work recently. supportive care. [id number] Gilberto Curry RN , [facility], OFFICE [address] [place] [address] 08/31/2022 11:37:03 08/31/2022 12:19:03 Cobalamin deficiency 716191486 E53.8 [id number] Whit Hylton MD , [facility], OFFICE [address] [place] [address] 09/02/2022 13:40:17 09/02/2022 15:19:42 Adult health examination 098885635 Z00.00 loki older gentleman; concerns discuss below. We completed his HCP today (HCP is ava and then his daughter isaiah) Depression screening 171 913962 Z13.31 depression screening tool administer ed Screening for alcohol abuse 276142600 Z13.39 Alcohol use screening tool administer ed Screening for malignant neoplasm of prostate 970393364 Z12.5 PSA testing for ages 55-69 risks and benefits discussed {{patient declines testing te st ordered*}} . Just done by urology Prediabetes 956380237 R7 3.03 reassuranc e. monitor; health diet. External hemorrhoids 239 65015 K64.4 feels swollen in anal/recta l area; feels like he can't evacuate his bowel completely despite taking miralax, metamucil, senna, recal exam normal.-tr ial treatment for hemorrhoid s-follow up with GI; has colonscopy 2021 Prostate s pecific antigen above reference range 304754226 R97.20 last checked recently by dr. rivera was 6; up from 4; he got the impression that Dr. rivera is not concerned about this. Likely related to his BPH. But he is anxious about it and would like imaging. I encouraged him to discuss wiht dr. rivera Small sofie lindsey bacterial overgrowth syndrome 734396354 A04.9 has been having a lot of bowel issues since he completed treatment for H. pylori. He tends to distrust medication and feel that it doesn't work for him. Just completed xifaxan and doesn't feel it helped. Continues to have GI issues-fol low up with GI Unintentio nal weight loss 451400208 R63.4 has been stable and slightly up since last visit; reassuranc e. . Atrial fibrillation 4943 6004 I48.91 Appears rate controlled . He is following with Brooklynn/Xiomara mast. He is on apixiban and will need to continue indefinite ly. He declined a change to Xarelto.-derrick cuenca is not taking metoprolol Chronic ki dney disease stage 3 735988058 N18.[address] Bennett and this has been stable with Cr. at 1.7 Gastroesop hageal reflux disease 171686683 K21.9 pepcid BID; was treated for h. pylori last year which lainey feels caused stomach upset. Right flank pain 4105353 09 R10.9 chronic. very concerned that this might be related to his CKD. Seems more musculoske letal to me. We have discussed this before in the past. reviewe imaging he's had. could consider liver ultrasound . He is frustrated that no etiology has been found.-has follow up with dr. quintero Temporoman dibular joint disorder 54010464 M26.609 right side; has had dental work recently. supportive care. [id number] Damion Dela Cruz RN , [facility], OFFICE [address] [facility] [place] [address] 09/28/2022 11:37:32 09/28/2022 11:50:06 Cobalamin deficiency 522511194 E53.8 [id number] Damion Dela Cruz RN , [facility], OFFICE [address] [facility] [place] [address] 10/26/2022 11:37:53 10/26/2022 12:08:17 Cobalamin deficiency 520462969 E53.8 [id number] Damion Dela Cruz RN , [facility], OFFICE [address] [place] [address], [place] [address] 11/23/2022 11:32:19 11/23/2022 12:09:28 Cobalamin deficiency 797426196 E53.8 [id number] Mallory Cochran LPN , [facility], OFFICE [address] [facility] [address] 12/02/2022 13:29:00 12/02/2022 14:56:30 Prediabetes 038097437 R73.03 reassuranc e. monitor; health diet. Small sofie l bacterial overgrowth syndrome 310507811 A04.9 has been having a lot of bowel issues since he completed treatment for H. pylori. He tends to distrust medication and feel that it doesn't work for him. Has completed xifaxan and doesn't feel it helped. Continues to have GI issues /sensitive stomach-fo llow up with GI External hemorrhoids 239 02016 K64.4 feels swollen in anal/recta l area; feels like he can't evacuate his bowel completely despite taking miralax, metamucil, senna, recal exam normal.-tr ial treatment for hemorrhoid s-follow up with GI; had colonscopy 2021 Prostate s pecific antigen above reference range 851304921 R97.20 last checked recently by dr. rivera was 6; up from 4; he got the impression that Dr. rivera is not concerned about this. Likely related to his BPH. But he is anxious about it and would like imaging. I encouraged him to discuss wiht dr. rivera Unintentio nal weight loss 139474087 R63.4 reversed , stable Atrial fibrillation 4943 6004 I48.91 Appears rate controlled . He is following with Brooklynn/Xiomara mast. He is on apixiban and will need to continue indefinite ly. He declined a change to Xarelto.-derrick cuenca is not taking metoprolol Chronic ki dney disease stage 3 901288679 N18.[address] Bennett and this has been stable with Cr. at 1.7 Gastroesop hageal reflux disease 337825572 K21.9 pepcid BID; was treated for h. pylori last year which lainey feels caused stomach upset. Does not tolerate PPIs Right flank pain 0603680 09 R10.9 chronic. very concerned that this might be related to his CKD. Seems more musculoske letal to me. We have discussed this before in the past. reviewed imaging he's had. could consider liver ultrasound . He is frustrated that no etiology has been found.-has follow up with dr. quintero Temporoman dibular joint disorder 18329419 M26.609 right side; has had dental work recently. supportive care. Chronic hoarseness 39586 90460 105 R49.0 in last year or more; relates to chronic phlegm and poor sleep Insomnia 338499746 G47.0 0 struggles with sleep; takes temazepam prn.-will trial mirtazapin e-follow up in 1-2 months Discussed indication s for new prescripti on, risks and benefits of medication , common side effects and how to manage, and reasons to notify prescriber of adverse effects or discontinu ation. [id number] KADEN Wilson, [facility], OFFICE [address] [facility] [place] [address] 01/18/2023 11:36:42 01/18/2023 12:22:18 Cobalamin deficiency 784800345 E53.8 [id number] KADEN Wilson, [facility] OFFICE [address] [facility] [place] [address] 02/22/2023 11:36:53 02/22/2023 12:06:27 Cobalamin deficiency 986285732 E53.8 [id number] Whit Hylton MD , [facility], OFFICE [address] [facility] [place] [address] 03/26/2023 15:11:32 03/26/2023 17:20:26 Prediabetes 729188438 R73.03 reassuranc e. monitor; health diet. Small sofie l bacterial overgrowth syndrome 024070852 A04.9 has been having a lot of bowel issues since he completed treatment for H. pylori. He tends to distrust medication and feel that it doesn't work for him. Has completed xifaxan and doesn't feel it helped. Continues to have GI issues /sensitive stomach-fo llow up with GI External hemorrhoids 239 09092 K64.4 feels swollen in anal/recta l area; feels like he can't evacuate his bowel completely despite taking miralax, metamucil, senna, recal exam normal.-tr ial treatment for hemorrhoid s-follow up with GI; had colonscopy 2021 Prostate s pecific antigen above reference range [id number] R97.20 last checked recently by dr. rivera was 6; up from 4; he got the impression that Dr. rivera is not concerned about this. Likely related to his BPH. But he is anxious about it and would like imaging. I encouraged him to discuss wiht dr. rivera Atrial fibrillation 4943 6004 I48.91 Appears rate controlled . He is following with [facility]. He is on apixiban and will need to continue indefinite ly. He declined a change to Xarelto.-derrick cuenca is not taking metoprolol Chronic ki dney disease stage 3 [address]38119 [address]18[address] Bennett and this has been stable with Cr. at 1.7 Gastroesop hageal reflux disease 692909521 K21.9 pepcid BID; was treated for h. pylori last year which lainey feels caused stomach upset. Does not tolerate PPIs Right flank pain 9158483 09 R10.9 chronic. very concerned that this might be related to his CKD. Seems more musculoske letal to me. We have discussed this before in the past. reviewed imaging he's had. could consider liver ultrasound . He is frustrated that no etiology has been found.-has follow up with dr. quintero Insomnia 589585185 G47.0 0 struggles with sleep; takes temazepam prn. Did not tolerate mirtazapin e Lumbosacra l radiculopathy 6191966 M54.17 see above. Pain in ri ght hip joint [id number] 50872 M25.551 could be his lumbosacra l radiculopa thy; not responding to injection from PSS; really feels the prednisone is the only thing that helps.-arelis l give quick taper-foll ow up for wellness in August Discussed indication s for new prescripti on, risks and benefits of medication , common side effects and how to manage, and reasons to notify prescriber of adverse effects or discontinu ation. 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 Presyncope , chest pain, right neck and shoulder pain. Work up for acute cva negative and ACS rule out normal. Found to have small dissection of right common carotid; unclear if this was incidental or cause of symptoms. No change to meds-follo w up with stroke clinic.-co ntinue eliquis Constipation 02613011 K5 9.00 given morphine in the hospital. Discussed tapering of miralax to 1 capful twice or 3 times a day; add senna 2 tabs at bedtime [id number] Damion Dela Cruz RN , [facility], [address] [address] [facility] [place] [address] 05/03/2023 13:30:13 05/03/2023 14:43:04 Cobalamin deficiency 603671563 E53.8 [id number] Damion Dela Cruz RN , [facility], [facility] [address] [facility] [place] [address] 05/31/2023 11:36:44 05/31/2023 11:48:01 Cobalamin deficiency 424585004 E53.8 [id number] Whit Hylton MD , [facility], [address] [place] [address] 07/02/2023 11:28:18 07/02/2023 16:21:54 Constipation 02742445 K59.00 ongoing; had to go to ER for enema; continue miralax. Pain in ri ght hip joint 3531194589 45864 M25.551 could be his lumbosacra l radiculopa thy; not responding to injection from PSS; really feels the prednisone is the only thing that helps.-arelis l give quick taper-foll ow up for wellness in August-trama dol prn which helps Prediabetes 600232233 R7 3.03 reassuranc e. monitor; health diet. Oswaldo lindsey bacterial overgrowth syndrome 501785014 A04.9 has been having a lot of bowel issues since he completed treatment for H. pylori. He tends to distrust medication and feel that it doesn't work for him. Has completed xifaxan and doesn't feel it helped. Continues to have GI issues /sensitive stomach-fo llow up with GI --Dr. Kate is leaving. Prostate s pecific antigen above reference range 854250103 R97.20 last checked recently by dr. rivera was 6; up from 4; related to BPH: reviewed last urology note; reviewed last CT scan done in hospital which showed possible small kidney stone causing obstructio n on left--with no significan t sx or change in creatinine , I would monitor. Atrial fibrillation 4943 6004 I48.91 Appears rate controlled . He is following with [facility]. He is on apixiban and will need to continue indefinite ly. He declined a change to Xarelto.-derrick cuenca is not taking metoprolol Chronic ki dney disease stage 3 [address]2940529 N18[address] Bennett and this has been stable with Cr. at 1.7 Gastroesop hageal reflux disease 188084026 K21.9 pepcid BID; was treated for h. pylori last year which lainey feels caused stomach upset. Does not tolerate PPIs. has functional dyspepsia and feels like the food doesn't move after he eats. Right flank pain 3095824 09 R10.9 chronic. very concerned that this might be related to his CKD. Seems more musculoske letal to me. We have discussed this before in the past. reviewed imaging he's had. could consider liver ultrasound . He is frustrated that no etiology has been found.-has follow up with dr. quintero Insomnia 933115201 G47.0 0 struggles with sleep; takes temazepam prn. Did not tolerate mirtazapin e Lumbosacra l radiculopathy 0377574 M54.17 see above. Cobalamin deficiency 190 349557 E53.8 Bilateral lower limb edema 812671999 R60.0 chronic intermitte nt issue; worse recently with xifaxan prescribed by GI for SIBO so he stopped med after 7 days (was suppose to take for 14. Could be side effect. I don't think this indicates a change in his kidney status which he is worried about. Denies SOB or orthopnea- continue furosemide 20 mg daily-elev ate-compre ssion stockings. -follow up if worsening or new concerns. [id number] Whit Hylton MD , [facility], OFFICE [address] [facility] [place] [address] 07/27/2023 11:14:44 07/27/2023 14:31:53 Bilateral lower limb edema 291925067 R60.0 chronic intermitte nt issue; Denies SOB or orthopnea. Cardiology has him on a heart monitor right now-contin ue furosemide 20 mg daily-elev ate-compre ssion stockings. -follow up if worsening or new concerns. Constipation 83673928 K5 9.00 ongoing; had to go to ER for enema; continue miralax. Pain in ri ght hip joint 4545359840 54401 M25.551 could be his lumbosacra l radiculopa thy; not responding to injection from PSS; really feels the prednisone is the only thing that helps.-tra madol prn which helps Prediabetes 262814576 R7 3.03 reassuranc e. monitor; health diet. Small sofie l bacterial overgrowth syndrome 814441996 A04.9 has been having a lot of bowel issues since he completed treatment for H. pylori. He tends to distrust medication and feel that it doesn't work for him. Has completed xifaxan and doesn't feel it helped. Continues to have GI issues /sensitive stomach-fo llow up with GI --Dr. Kate is leaving. Prostate s pecific antigen above reference range 613813958 R97.20 last checked recently by dr. rivera was 6; up from 4; related to BPH: reviewed last urology note; reviewed last CT scan done in hospital which showed possible small kidney stone causing obstructio n on left--with no significan t sx or change in creatinine , I would monitor. Atrial fibrillation 4943 6004 I48.91 Appears rate controlled . He is following with [facility]. He is on apixiban and will need to continue indefinite ly. He declined a change to Xarelto.-derrick cuenca is not taking metoprolol Chronic ki dney disease stage 3 299499309 N18[address] Bennett and this has been stable with Cr. at 1.7 Gastroesop hageal reflux disease 810585461 K21.9 pepcid BID; was treated for h. pylori last year which lainey feels caused stomach upset. Does not tolerate PPIs. has functional dyspepsia and feels like the food doesn't move after he eats. Right flank pain 1449300 09 R10.9 chronic. very concerned that this might be related to his CKD. Seems more musculoske letal to me. We have discussed this before in the past. reviewed imaging he's had. could consider liver ultrasound . He is frustrated that no etiology has been found.-has follow up with dr. quintero Insomnia 433336988 G47.0 0 struggles with sleep; takes temazepam prn. Did not tolerate mirtazapin e Lumbosacra l radiculopathy 3514533 M54.17 see above. Cobalamin deficiency 190 930985 E53.8 Cataract 383340702 H26.9 Surgery scheduled/ date: 08/16/23 Surgeon: [facility] Patient understand s and desires planned surgery- YesPatient does not have any uncontroll ed medical conditions at this time. Patient has not had cardiac stenting in the last 6 months. Patient is currently wearing a heart monitor from his cardiologi st but his cardiologi st has told him he can go ahead with cataract surgery and there is no concern for significan t uncontroll ed heart condition Surgery risk: Low Patient Cardiac Risk: Low Preoperati ve cardiac assessment needed: No (just saw his cardiologi st) Pelaez Activity Status Index: Patient is able to perform >4 mets of physical activity. No further cardiac assessment required. Sana-opera tive Pulmonary Risk: Low Medication Recommenda tions: No medication s need to be stopped or held sana-opera tively unless otherwise advised by surgeon Patient is on anticoagul ant/anti-p latelet therapy and the sana-opera tive plan is as follows: can continue eliquis [id number] KADEN Wilson, [facility], OFFICE [address] [place] [address] 08/02/2023 11:17:56 08/02/2023 11:38:41 Cobalamin deficiency 462789839 E53.8 [id number] Gilberto Curry RN , [facility], OFFICE [address] [place] [phone] 09/06/2023 11:38:41 09/06/2023 11:46:38 Cobalamin deficiency 701539025 E53.8 [id number] Kelly Muhammad LPN [facility], [address]ICE [address] [place] [address] 10/01/2023 11:28:10 10/01/2023 12:00:55 Cobalamin deficiency 599271598 E53.8 [id number] Gilberto Curry RN , [facility], OFFICE [address] [place] [phone] 1 11/08/2023 11:36:38 11/08/2023 13:43:18 Cobalamin deficiency 430038010 E53.8 [id number] Gilberto Curry RN , [facility], OFFICE [address] [place] [address] 1 12/06/2023 11:37:51 12/06/2023 11:59:52 Cobalamin deficiency 597656997 E53.8 [id number] Gilberto Curry RN , [facility], OFFICE [address] [place] [phone] 2024 11:41:23 2024 12:09:01 Cobalamin deficiency 936723049 E53.8 [id number] KADEN Hinds, [facility], OFFICE [address] [place] [address] 1 02/07/2024 13:27:44 02/07/2024 13:34:04 Cobalamin deficiency 281995983 E53.8 [id number] Iliana Mendieta RN , [facility], OFFICE [address] [facility] [place] [phone] 03/10/2024 11:24:30 03/10/2024 11:51:20 Cobalamin deficiency 727085000 E53.8 [id number] Je Yanes PA-C , [facility], OFFICE [address] [facility] [place] [address] 04/10/2024 17:27:58 04/14/2024 13:31:28 Dysuria 66633725 R30.0 Patient with urinary symptoms.W e had a long discussion vis a vis possible source of discomfort at urethra. will treat today and await culture. Possible early prostatiti s. Hydration encouraged . No symptoms of pyelonephr itis.Will send urine for culture.Di scussed supportive and preventive measures.P atient instructed to follow up if not better or with new symptoms. Prostatitis 2843119 N41. 9 Clear urine, afebrile, no prostate exam performed. No s/s or clinical hx of STIs. reviewed notes from [facility] mend f/u with PCP for this as well as other chronic complaints . Chronic ki dney disease stage 3A 179399449 N18.31 labs 12/2023 gfr 39, cr 1.7 [id number] Gilberto Curry RN , [facility], OFFICE [address] [place] [address] [place] [address] 04/24/2024 13:30:15 04/24/2024 13:50:28 Cobalamin deficiency 213536711 E53.8 Health Concerns Section Related Observation LastModified by Organization Detai ls LastModified Time None Recorded Concern Status LastModified by Organization Details LastModified Time None Recorded Advance Directives Directive N: Payers Encounter Date Sequence Insurance Name Policy Number Policy Lal Covered Member ID Lal Member ID Guarantor Name 02/07/2024 2 [place] [facility] Lainey Allison [id number] Lainey Allison 02/07/2024 1 [place] [employer] Lainey Allison [id number] Lainey Allison 03/10/2024 2 [place] Lainey Allison [id number] Lainey Allison 03/10/2024 1 [place] [facility] Lainey Allison [id number] Lainey Allison 04/10/2024 2 [place] Lainey Allison [id number] Lainey Allison 04/10/2024 1 MEDICARE B-[place]: [facility] Lainey Allison [id number] Lainey Allison 04/24/2024 2 [place] [facility] Lainey Allison [id number] Lainey Allison 04/24/2024 1 MEDICARE B-[place]: [facility] Lainey Alilson [id number] Lainey Allison Notes Date Note Type Note Provider Name and Address Organization Details Recorded Time 04/10/2024 text/html Urinary FrequencyReported bypatient.SymptomsSymp toms began 2 days ago;Urinary frequency; No urinary frequency; No burning;Urgency; No fever; No chills; No back pain; No nausea; No vomiting; No vaginal symtpoms; No new sexual partner; No frequent previous UTI; right side lower back pain radiates to stomach feeling constipated reports always had issues with coccyx on the right side notes some delay in getting to bathroom and occ incontinence for about a year. Constipation is chronic. drinks a lot of water. here with lynne Wild seen this evening in appt. ADAL in person was 07/2023 with AB Je Yanes PA-C [address] [place] [address], [phone], [facility] 04/13/2024 07:53:07
--- OUTSIDE RECORDS SUMMARY | 2024-05-08 17:46 | XMS_ITS | Encounter Summary ---
Author Organization [employer] Address [address] [place] [address] [address] [place] [address] Care Team Providers Care Fountain Supervisor Name Role Phone Anisa Rios Primary Care Provider Mohamud Stephens Primary Care Provider Eliezer Cardona PA-C Primary Care Provider [phone] Encounter Details Date Type Department Care Team (Latest Contact Info) Description 12/30/2020 Abstract [facility] CONVERSIONS Dental, Provider, DDS Social History Tobacco Use Types Packs/Day Years Used Date Smoking Tobacco: Never Assessed Sex and Gender Information Value Date Recorded Sex Assigned at Male 03/16/2022 5:35 PM EST Legal Sex Male 8:38 PM EST Gender Identity Male 12/26/2021 8:38 PM EST Sexual Orientation Straight 12/26/2021 8: 38 PM EST documented as of this encounter Plan of Treatment Not on file documented as of this encounter Visit Diagnoses Not on filedocumented in this encounter Care Teams Fountain Supervisor Relationship Specialty Start Date End Date Anisa Rios LLD PCP - General Dentist 12/12/21 09/28/22 Mohamud Vail PCP - General Family Medicine 09/29/22 06/08/23 Eliezer Torres PA-C [address] [place] [id number] PCP - General Family Medicine 06/09/23 documented as of this encounter
--- OUTSIDE RECORDS SUMMARY | 2024-05-08 17:46 | XMS_ITS | Clinical Summary ---
Author Organization [employer] Address [address] [place] [address] [address] [place] [address] Care Team Providers Care Telemetry Tech Name Role Phone Eliezer Torres PA-C Primary Care Provider [phone] Allergies Active Allergy Reactions Criticality Noted Date Comments Codeine Headache 09/17/2018 DURANT DURANT Medications apixaban (Eliquis) 2.5 MG tablet 1 Active pilocarpine (Pilocar) 2 % ophthalmic solution instill 1 drop into both eyes four times a day 3 Active Timolol Maleate, Once-Daily, 0.5 % solution Administer into affected eye(s). Active Active Problems No known active problems Social History Tobacco Use Types Packs/Day Years Used Date Smoking Tobacco: Never Smokeless Tobacco: Never Tobacco Cessation:Counseling Given: Not Answered Alcohol Use Standard Drinks/Week Comments Not Currently 0 (1 standard drink = 0.6 oz pur e alcohol) Sex and Gender Information Value Date Recorded Sex Assigned at Male 03/16/2022 5:35 PM EST Legal Sex Male 8:38 PM EST Gender Identity Male 12/26/2021 8:38 PM EST Sexual Orientation Straight 12/26/2021 8: 38 PM EST Last Filed Vital Signs Vital Sign Reading Time Taken Comments Blood Pressure 116/78 09/20/2023 11:30 AM EDT Pulse 72 09/20/2023 11:30 AM EDT Temperature 36.8 ??C (98.3 ??F) 09/20/2023 11:30 AM E DT Respiratory Rate - - Oxygen Saturation - - Inhaled Oxygen Concentration - - Weight - - Height - - Body Mass Index - - Plan of Treatment Health Maintenance Due Date Last Done Comments Depression Screening 1945 Lipid Panel 1945 SDOH Screening 1943 Alcohol/Substance Use Screening 1955 Zoster Vaccines (2 of 3) 06/17/2011 04/22/2011 RSV Patients and Patients Aged 60 years or older (1 - 1-dose 75+ series) 2018 DTaP/Tdap/Td Vaccines (1 - Tdap) 08/02/2018 08/01/2018, 03/27/2008, 03/27/2008 Dental X-Ray: Full Mouth 10/04/2023 10/02/2020, 09/16 COVID-19 Vaccine ( season) 2023 11/06/2022, 11/19/2021, 10/16/2021, Additional history exists Influenza Vaccine (#1) 2023 , 11/24/2021, 12/07/2020, Additional history exists Dental Oral Exam 03/23/2024 09/20/2023, , 08/31/2018, Additional history exists Dental Prophylaxis 04/10/2024 10/08/2023, 0 10/02/2020, 07/08/2018, Additional history exists Dental X-Ray: Bitewings 09/20/2024 09/20/19, 10/02/2020, 07/08/2018, Additional history exists Tobacco Screening 10/07/2024 10/08/2023 Pneumococcal Vaccine: 50+ Years Completed 06/18/2014, 03/27/2008 HIB Vaccines Aged Out No longer eligi ble based on patient's age to complete this topic HPV Vaccines Aged Out No longer eligi ble based on patient's age to complete this topic Hepatitis A Vaccines Aged Out No long er eligible based on patient's age to complete this topic Hepatitis B Vaccines Aged Out No long er eligible based on patient's age to complete this topic IPV Vaccines Aged Out No longer eligi ble based on patient's age to complete this topic Meningococcal Vaccine Aged Out No emmanuel erlin eligible based on patient's age to complete this topic RSV under 20 months Aged Out No longe r eligible based on patient's age to complete this topic Rotavirus Vaccines Aged Out No longer eligible based on patient's age to complete this topic Procedures Procedure Name Priority Date/Time Associated Diagnosis Comments PROPHYLAXIS - ADULT Routine 10/08/2023 1 1:15 AM EDT BITEWINGS - 4 RADIOGRAPHIC IMAGES Routine 09/20/2023 11:30 AM EDT PERIODIC ORAL EVALUATION - ESTABLISHED PATIENT Routine 09/20/2023 11:30 AM EDT INTRAORAL - COMPLETE SERIES OF RADIOGRAPHIC IMAGES Routine 10/02/2020 12:00 AM EDT from Last 3 Months or Most Recently Relevant to Health Maintenance Insurance [facility] [place]ICARE [place] STAND ADULT DENTAL - H[facility] FULL (MEDICAID) Care Teams Telemetry Tech Relationship Specialty Start Date End Date Eliezer Torres PA-C [address] [place] [address] [place] [address] PCP - General Family Medicine 06/09/23
--- OUTSIDE RECORDS SUMMARY | 2024-05-08 17:46 | XMS_ITS | Continuity of Care Document ---
Author Organization [facility], FP, [facility], OFFICE Address [address] [place] [address] Care Team Providers Care Supervisor Network Control Operators Name Role Phone AMARA FIELDS OTHER HAL KATE OTHER [phone] DANETTE PEREYRA Kitchen Lead [facility] Urologist DALTON QUINTERO Sports Medicine WHIT HYLTON Primary Care Provider [phone] Assessment No assessment recorded. Plan of Treatment Reminders Order Date Submit Date Provider Last Modified By Organization Details Last Modified Time Details Appointments LAB Follow-U p 2024 10:35A M [facility] Lab Not available Not available Not available Treatmen t Nurse 20 2024 11:40A M [facility] TREATMENT NURSE [facility] Not available Not available Not available Follow Up, 30 2024 12:00P M FAVIOLA KELLEY NP Not available Not available Not available LAB Follow-U p 2024 11:30A M [facility] Lab Not available Not available Not available Wellness Visit 30 2024 01:30P M FAVIOLA KELLEY NP Not available Not available Not available Lab None recorded . Referral None recorded . Procedures None recorded . Surgeries None recorded . Imaging None recorded . Medication Orders cyanocob alamin (vit B-12) 1,000 mcg/mL injectio n solution 2024 025 [email or web address] [id number], [address] [place], [address], 04/25/2024 08:27:13 Patient TargetsNo targets recorded. Patient InstructionsNo instructions recorded. Reason for Referral None Reported. Problems Name Problem SNOMED Code Status Onset Date Resolution Date Notes Provider Name and Address Organization Details Recorded Time Nasophar yngitis 47325355 Completed 06/18/2014 [place], [address], [facility] 6 15:27:18 Adenomat ous polyp of colon 989963138 Active [place], [address], [facility] 6 16:05:56 Atrial fibrilla tion 75197367 Active 2016 Echo 04/03 EF 60-65% mild cLVH LAE, mild-mod MR Echo 10/04 EF 60-65% [place], [address], [facility] 0 16:53:40 History of cardioem bolic stroke 286237171 Active 2016 Right MCA [place], [address], [facility] 7 13:13:25 Tension- type headache 714547487 Completed 201708/29/2019 [place], [address], [facility] 0 09:00:19 Chronic kidney disease stage 3 885504375 Active 2018 [place], [address], [facility] 0 08:57:59 Legal blindnes s 94566231 Active 2019 [place], [address], [facility] 0 08:42:21 Splenic infarcti on 93325475 Active 2019 [place], [address], [facility] 0 08:59:44 Benign prostati c hyperpla amrit 849593514 Active 2020 Whit Hylton MD [address] [place], [place] [address], [address], [facility] 1 14:20:22 Pulmonar y hyperten agustin 93745607 Active 2021 mild Whit Hylton MD [address] [place], [place] [address], [address], [facility] 2 11:45:26 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 Whit Hylton MD [address] [place], [place] [address], [address], [facility] 2 10:39:08 Gastroes ophageal reflux disease 493448946 Active 2022 Lewis Trejo PA-C [address] [place], [place] [address], [address], [facility] 3 12:36:31 Prediabe oswaldo 380653387 Active 2022 Whit Hylton MD [address] [place], [place] [address], [address], [facility] 3 14:03:57 External hemorrho ids 13204521 Active 2022 Whit Hylton MD [address] [place], [place] [address], [address], [facility] 3 16:01:16 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 2022 Whit Hylton MD [address] [place] [address] [place], [address], [facility] 3 16:01:17 Hiatal hernia 18441504 Active 2022 Whit Hylton MD [address] [place], [place] [address], [address], [facility] 3 15:32:38 Chronic hoarsene ss 39495847893 05 Active 2022 Whit Hylton MD [address] [place], [place] [address], [address], [facility] 3 15:33:58 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 52920624498 352678 Active 2023 [facility] 03/2023 Whit Hylton MD [address] [place], [place] [address], [address], [facility] 4 17:02:09 Temporom andibula r joint disorder 96868050 Active 2023 Whit Hylton MD [address] [place], [place] [address], [address], [facility] 4 17:02:07 Hyperpar athyroid ism 61887720 Active 2023 Whit Hylton MD [address] [place], [place] [address], [address], [facility] 4 14:18:40 Vitamin D deficien cy 89836732 Active 2023 Whit Hylton MD [address] [place], [place] [address], [address], [facility] 4 13:58:23 Chronic kidney disease stage 3A 407695790 Active 2024 Je Yanes PA-C [address] [place], [place] [address], [address], [facility] 5 07:52:22 Injury of shoulder region 835877788 Completed 200507/17/2008 Boyd Vidal MD [address] [place], [place] [address], [address], [facility] 6 15:27:18 Disorder of tendon of shoulder region 56829493 Completed 200507/17/2008 Boyd Vidal MD [address] [place], [place] [address], [address], [facility] 6 15:27:18 Migraine without aura 03374264 Active 2001 Boyd Vidal MD [address] [place] [address] [place], [address], [facility] 6 16:05:56 Brachial neuritis 17550610 Completed 200407/17/2008 Boyd Vidal MD [address] [place], [address], [facility] 6 15:27:18 Shoulder pain 90510579 Completed 200507/17/2008 Boyd Vidal MD [address] [place] [address] [place], [address], [facility] 6 15:27:18 Migraine with aura 1985940 Completed 04/22/2011 Boyd Vidal MD [address] [place], [address], [facility] 6 15:27:18 Migraine with aura 5296302 Completed 05/21/2010 Boyd Vidal MD [address] [place], [address], [facility] 6 15:27:18 Migraine with aura 8358996 Completed 200607/17/2008 Boyd Vidal MD [address] [place] [address] [place], [address], [facility] 6 15:27:18 Pain in thoracic spine 554765833 Completed 200507/17/2008 Boyd Vidal MD [address] [place], [address], [facility] 6 15:27:18 Neck pain 29049840 Completed 200407/17/2008 Boyd Vidal MD [address] [place] [address] [place], [address], [facility] 15:27:18 Neck pain 68477186 Completed 01/04/2013 Boyd Vidal MD [address] [place] [address] [place], [address], [facility] 15:27:18 Pain in limb 50806173 Completed 200407/17/2008 Boyd Vidal MD [address] [place], [place] [address], [address], [facility] 15:27:18 Glaucoma 84021283 Active Boyd Vidal MD [address] [place], [place] [address], [address], [facility] 16:05:56 Glaucoma 98774843 Completed 07/17/2008 Boyd Vidal MD [address] [place], [place] [address], [address], [facility] 15:27:18 Notes:enlarged prostote Some problems listed in Documents: #[id number], #[id number], #[id number], #[id number], #[id number], #[id number] could not be added to this patient's chart. Please review these documents and add these problems to the patient's chart manually as needed. Problem Notes None recorded. Procedures Surgical History Date Name Laterality Status Provider Name and Address Organization Details Recorded Time 11/28/19 25 Medicare Wellness Visit active Shani Duran [facility] 03/15/2024 08:08:37 03/26/19 24 Post hospital/SNF follow-up/Transiti onal Care completed VANITA Solis [facility] 03/25/2023 16:41:15 09/03/19 23 Medicare Wellness Visit completed Malka Storm [facility] 09/02/2022 13:42:21 02/20/19 23 Post hospital/SNF follow-up/Transiti onal Care completed Traci Chun MA [facility] 02/19/2022 09:49:32 09/02/19 22 Medicare Wellness Visit completed Rosa Maxwell [facility] 09/01/2021 15:57:48 09/02/19 22 Alcohol use screening completed Rosa Maxwell [facility] 09/01/2021 15:57:48 09/02/19 22 Cardiovascular disease [facility] 09/01/2021 15:57:48 07/17/19 22 89786: Therapeutic Exercise completed Maranda Dean [address] [place] [address], [address], [facility] 07/16/2021 13:46:48 07/17/19 22 74414: Manual Therapy completed Marandamack Dean [address] [place] [address], [address], [facility] 07/16/2021 13:47:09 07/17/19 22 Treatment and Advice completed Maranda Dean [address] [place] [address], [address], [facility] 07/16/2021 13:48:02 07/10/19 22 35191: Therapeutic Exercise completed Maranda Dean [address] [place] [address], [address], [facility] 07/09/2021 19:18:44 07/10/19 22 13894: Manual Therapy completed Maranda Dean [address] [place] [address], [address], [facility] 07/09/2021 19:19:21 07/10/19 22 Neuromuscular re-education completed Maranda Dean [address] [place] [address], [address], [facility] 07/09/2021 19:18:37 07/10/19 22 Treatment and Advice completed Maranda Dean [address] [place] [address], [address], [facility] 07/09/2021 19:19:58 07/01/19 22 63771: Therapeutic Exercise completed Maranda Dean [address] [place] [address], [address], [facility] 06/30/2021 14:25:49 07/01/19 22 28103: Manual Therapy completed Maranda Dean [address] [place] [address], [address], [facility] 06/30/2021 14:25:47 07/01/19 22 Treatment and Advice completed Maranda Dean [address] [place] [address], [address], [facility] 06/30/2021 14:26:27 06/24/19 22 42007: Manual Therapy completed Maranda Dean [address] [place] [address], [address], [facility] 06/23/2021 13:00:50 06/24/19 22 Neuromuscular re-education completed Marandamack Dean [address] [place] [address], [address], [facility] 06/23/2021 13:05:30 06/17/19 22 97399: Manual Therapy completed Marandamack Dean [address] [place] [address], [address], [facility] 06/16/2021 20:58:43 06/17/19 22 Neuromuscular re-education completed Marandamack Dean [address] [place] [address], [address], [facility] 06/16/2021 20:58:02 06/03/19 22 Physical Activity Counselling completed Marandamack Dean [address] [place] [address], [address], [facility] 06/02/2021 14:26:29 06/03/19 22 76707: PT Eval Low Complexity completed Marandamack Dean [address] [place] [address], [address], [facility] 06/02/2021 14:26:36 08/30/19 21 Medicare Wellness Visit completed Lissette Olivo MA [facility] 08/29/2020 08:18:39 08/30/19 21 Cerumen Removal - Irrigation/Lavage completed Donna Escamilla CMA [facility] 08/29/2020 14:42:58 08/25/19 21 Cerumen Removal - Irrigation/Lavage completed Judi Pedro LPN [facility] 08/24/2020 13:13:41 08/29/19 20 Medicare Wellness Visit completed Boyd Vidal MD [address] [place] [address], [address], [facility] 08/28/2019 20:28:00 08/29/19 20 prevention-cardiov ascular risk reduction counseling completed Boyd Vidal MD [address] [place] [address], [address], [facility] 08/28/2019 20:28:00 08/02/19 19 Medicare Wellness Visit completed VANITA Saavedra [facility] 08/01/2018 13:46:08 06/10/19 19 POC Urinalysis Testing completed VANITA Saavedra [facility] 06/09/2018 16:25:47 07/15/19 18 Medicare Wellness Visit completed Shawn Elkins MA [facility] 07/14/2017 13:13:45 07/08/19 17 Medicare Wellness Visit completed Donna Escamilla CMA [facility] 07/07/2016 12:54:51 06/25/19 16 Medicare Wellness Visit completed Shawn Elkins MA [facility] 06/25/2015 14:59:03 09/19/19 15 Cerumen Removal completed Liliana Smith LPN [facility] 09/18/2014 16:02:45 06/19/19 15 Medicare Wellness Visit completed Shawn Elkins MA [facility] 06/18/2014 14:15:48 06/06/19 14 Medicare Wellness Visit completed Charlotte Mcfarlane MA [facility] 06/05/2013 13:23:28 05/06/19 13 Medicare Wellness Visit completed Shawn Elkins MA [facility] 05/05/2012 14:21:46 02/15/18 93 Other (specify) completed Not Available [facility] 01/01/2011 06:05:52 02/15/18 80 Other (specify) completed Not Available [facility] 01/01/2011 06:05:52 Imaging Results None recorded. Procedure Notes None recorded. Medical Equipment None Reported. Allergies Allergen ID Allergen Name Allergen Category Reaction Reaction Severity Criticality Documentation Date Start Date Code Code System Note Provider Name and Address Organization Details Recorded Time 039740 codeine medicatio n headache Not available Not available 06/18/2014 2670 RxNorm ALONDRA Moran [facility] 5 14:31:01 773133 clindamyc in Not available abdominal pain moderate Not available 08/29/20202020 2582 RxNoALONDRA Vega [facility] 3 12:04:22 Medications Name Sig Start [...] a day by oral route. 05/04 completed [facility] 03/13/24 Not Available Not Available Not [...] TIMES A DAY NEEDED 07/29 completed on eliquis- Rare Not Available Not Available Not Available [...] bromide 42 mcg (0.06 %) nasal spray Spring 2 sprays 3 times a day by [...] Not Available Not Available Not Available Vitals None Recorded Social History Question Answer Notes LastModified by Organization Details LastModified Time Tobacco Smoking Status Never Smoker Not Available [facility] 01/01/2011 04:54:19 Do You Have An Advance Directive? No Information not available 02/20/2022 What Is Your Level Of Alcohol Consumption? None Information not available 09/01/2021 What Is Your Level Of Caffeine Consumption? Occasional Information not available 05/05/2012 How Much Tobacco Do You Chew? None [email or web address] [id number] Information not available 01/01/2011 Are You Currently Employed? No [email or web address] Information not available 08/05/2022 What Type Of Diet Are You Following? 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 None [email or web address] [id number] Information not available 01/01/2011 Do You Or Have You Ever Used E-cigarettes Or Vape? 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 No Information not available 09/01/2021 How Many Days In The Past Year Have You Had A Heavy Drinking Consumption (4+ Female, 5+ Male)? 0 Information not available 05/05/2012 Are There Any Guns Present In Your Home? No [email or web address] [id number] Information not available 01/01/2011 Do You Use Insect Repellent Routinely? Yes Information not available 09/01/2021 Live Alone Or With Others? 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 09/02/2022 [email or web address] Information not available 09/02/2022 How Many Children Do You Have? 5 None Local; [place], [place], [place], [facility], [place] - 6 Grandkids Information not available [...] Much Tobacco Do You Smoke? No [email or web address] [id number] Information not available 01/01/2011 What Types Of Sporting Activities Do You Participate In? None [email or web address] [id number] Information not available 01/01/2011 General Stress Level [...] Medical History Condition Response Atrial Fibrillation Y Erectile Dysfunction Y Glaucoma Y Cerebral Vascular Accident Y Migraine Headaches Y Kidney Disease Y Chronic Neck Pain Y ENT Y Colon Polyps Y Chronic Back Pain Y Immunizations Vaccine Type Date Status Note Provider Nam e and Address Organization Details Recorded Time zoster live 2 completed Not Available [facility] 03/04/2019 02:16:32 Td (adult), 5 Lf tetanus toxoid, preservative free, adsorbed 9 completed Not Available [facility] 03/04/2019 02:28:15 Influenza, split virus, trivalent, PF 3 completed Not Available [facility] 03/04/2019 02:31:49 Influenza, split virus, trivalent, PF 9 completed Not Available [facility] 03/04/2019 02:22:05 pneumococcal polysaccharide PPV23 9 completed Not Available [facility] 03/04/2019 02:19:47 Influenza, split virus, trivalent, PF 3 completed Not Available [facility] 03/04/2019 02:37:17 Influenza, high-dose, trivalent, PF 4 completed Not Available [facility] 03/04/2019 02:34:15 Pneumococcal conjugate PCV 13 5 completed Not Available [facility] 03/04/2019 02:27:11 Influenza, high-dose, trivalent, PF 6 completed Not Available [facility] 03/04/2019 02:21:04 Influenza, high-dose, trivalent, PF 7 completed Not Available [facility] 03/04/2019 02:22:03 Td (adult), 2 Lf tetanus toxoid, preservative free, adsorbed 9 completed Not Available [facility] 03/04/2019 02:24:00 influenza, unspecified formulation 8 completed Roxana Zhao CMA null, [facility] 05/04/2024 12:04:16 Influenza, high-dose, quadrivalent, PF 0 completed Briana Mas INSURANCE FOLLOW UP REP [facility] 11/21/2019 09:40:16 Influenza, high-dose, trivalent, PF 9 completed Roxana [facility] 05/04/2024 12:04:16 Influenza, high-dose, quadrivalent, PF 2 completed Marquita Kraft C[facility] 11/24/2021 14:20:29 COVID-19, mRNA, LNP-S, PF, 30 mcg/0.3 mL dose 1 completed Roxana Zhao C[facility] 05/04/2024 12:04:33 COVID-19, mRNA, LNP-S, PF, 30 mcg/0.3 mL dose 1 completed Roxana Zhao CMA [facility] 05/04/2024 12:04:33 Influenza, split virus, trivalent, preservative 0 completed Not Available [facility] 03/04/2019 02:17:50 COVID-19, mRNA, LNP-S, bivalent, PF, 30 mcg/0.3 mL dose 2 completed Emma Andersen LPN [facility] 04/21/2022 11:49:10 influenza, unspecified formulation 3 completed Roxana Zhao TRANSFER CLERK [facility] 05/04/2024 12:04:33 Influenza, adjuvanted, trivalent, PF 9 completed Roxana Zhao TRANSFER CLERK [facility] 05/04/2024 12:04:33 Influenza, high-dose, trivalent, PF 8 completed Roxana Zhao CMA [facility] 05/04/2024 12:04:33 Influenza, adjuvanted, quadrivalent, PF 3 completed Roxana Zhao TRANSFER CLERK [facility] 05/04/2024 12:04:33 Influenza, adjuvanted, quadrivalent, PF 1 completed Roxana Zhao CMA [facility] 05/04/2024 12:04:33 COVID-19, mRNA, LNP-S, PF, 30 mcg/0.3 mL dose 1 completed Roxana Zhao C[facility] 05/04/2024 12:04:33 COVID-19, mRNA, LNP-S, PF, 30 mcg/0.3 mL dose, sneha-sucrose 2 completed Roxana Zhao CMA [facility] 05/04/2024 12:04:33 COVID-19, mRNA, LNP-S, bivalent, PF, 30 mcg/0.3 mL dose 2 completed Roxana Zhao CMA [facility] 05/04/2024 12:04:33 RSV, bivalent, protein subunit RSVpreF, diluent reconstituted, 0.5 mL, PF 3 completed Roxana hZao TRANSFER CLERK [facility] 05/04/2024 12:04:33 COVID-19, mRNA, LNP-S, PF, sneha-sucrose, 30 mcg/0.3 mL 3 completed Roxana Zhao CMA null, [facility] 05/04/2024 12:04:33 COVID-19, mRNA, LNP-S, PF, sneha-sucrose, 30 mcg/0.3 mL 4 completed Roxana Zhao TRANSFER CLERK null, [facility] 05/04/2024 12:04:33 Influenza, high-dose, trivalent, PF 4 completed Roxana Zhao TRANSFER CLERK [facility] 05/04/2024 12:04:33 Past Encounters Encounter ID Performer Location Encounter Start Date Encounter Closed Date Diagnosis/Indication Diagnosis SNOMED-CT Code Diagnosis ICD10 Code Diagnosis Note [id number] Je Yanes PA-C , [facility], OFFICE [address] [place] [address] 04/10/2024 17:27:58 04/14/2024 13:31:28 Dysuria 35555284 R30.0 Patient with urinary symptoms.W e had a long discussion vis a vis possible source of discomfort at urethra. will treat today and await culture. Possible early prostatiti s. Hydration encouraged . No symptoms of pyelonephr itis.Will send urine for culture.Di scussed supportive and preventive measures.P atient instructed to follow up if not better or with new symptoms. Prostatitis 7704026 N41. 9 Clear urine, afebrile, no prostate exam performed. No s/s or clinical hx of STIs. reviewed notes from [facility] m[facility] f/u with PCP for this as well as other chronic complaints . Chronic ki dney disease stage 3A 518573095 N18.31 labs 12/2023 gfr 39, cr 1.7 [id number] Gilberto Curry RN , [facility], OFFICE [address] [place] [address] 04/24/2024 13:30:15 04/24/2024 13:50:28 Cobalamin deficiency 807863050 E53.8 Health Concerns Section Related Observation LastModified by Organization Detai ls LastModified Time None Recorded Concern Status LastModified by Organization Details LastModified Time None Recorded Payers Encounter Date Sequence Insurance Name Policy Number Policy Lal Covered Member ID Lal Member ID Guarantor Name 04/24/2024 2 [place] [facility] Edmund Allison [id number] Edmund Allison 04/24/2024 1 [place] [employer] Edmund Allison [id number] Edmund Allison
== END 2024-05-08 15:20 | disposition home or self-care (01) ==
LOC: HO.HKA 14:52
PROVIDERS: PCP Internal Medicine; Visit Provider Internal Medicine Hypertension Specialist
DX: N18.32 Chronic kidney disease, stage 3b (principal)
CPT/HCPCS: 99214

== ENCOUNTER → 2024-05-08 14:51 | Outpatient (BNVA) | payer MEDICARE, MEDICAID, SELFPAY | PROVIDERS: PCP Internal Medicine; Visit Provider Internal Medicine Hypertension Specialist | DX: N18.32 Chronic kidney disease, stage 3b (principal) | CPT/HCPCS: 99212 ==

== ENCOUNTER 2024-08-10 10:15 | Outpatient (REF) | payer MEDICARE, MEDICAID, SELFPAY ==
--- NOTE | ~2024-08-10 | XR_ITS ---
CLINICAL HISTORY: K59.09 - Other constipation 1 view abdomen Comparison: None provided Findings: No significant bowel distention demonstrated. No significant increased stool noted. No free air. No abnormal calcification. No acute bony abnormalities. Impression: No significant abnormalities. This document has been electronically signed by: Marcin Louis MD on 08/10/2024 20:10:10
[2024-08-10 14:51] LABS: Alanine Aminotransferase 19 U/L (0-40); Albumin Level 4.6 g/dL (3.5-5.0); Alkaline Phosphatase 65 U/L (39-117); Anion Gap 8 (12-20); Aspartate Amino Transferase 24 U/L (5-37); Bilirubin Total 0.7 mg/dL (0.0-1.0); Blood Urea Nitrogen 22 mg/dL (9-16); Calcium 9.4 mg/dL (8.4-10.2); Carbon Dioxide 27 mmol/L (22-29); Chloride 107 mmol/L (96-108); Estimated Glomerular Filt Rate 38; Glucose Random 74 mg/dL (60-115); Lipase 55 U/L (8-78); Sodium 138 mmol/L (135-145); Total Protein 7.3 g/dL (6.5-8.0)
[2024-08-10 15:23] LABS: Folate 9.4 ng/mL (> or = 4.0); Vitamin B12 621 pg/mL (200-900)
[2024-08-11 09:51] LABS: H Pylori Breath Test Negative (Negative)
== END 2024-08-10 10:16 | disposition home or self-care (01) ==
LOC: HO.XRAY 10:15
PROVIDERS: PCP Internal Medicine; Visit Provider Internal Medicine Gastroenterology
DX: K59.09 Other constipation (principal); K21.9 Gastro-esophageal reflux disease without esophagitis; R63.4 Abnormal weight loss
CPT/HCPCS: 36415; 74018; 80053; 82607; 82746; 83013; 83690

== ENCOUNTER 2024-08-10 10:15 | Outpatient (AMB) | payer MEDICARE, MEDICAID, SELFPAY ==
[2024-08-10 10:18] VITALS: BP 102/63; PULSE 69; O2SAT 96; BMI 23.0
--- NOTE | 2024-08-10 10:18 | MHC.OFFVIS ---
Vital Signs 08/10/24 10:18 Height 5 ft 11 in Weight 165 lb BMI 23.0 BP 102/63 Blood Pressure Location Lt brachial Position Sitting Pulse 69 Pulse Oximetry (%) 96 Oxygen Delivery Method Room Air Intake Visit Reasons: abdominal pain, gerd, sibo Intake Note: New consult for abdominal pain, GERD, and SIBO Patient cc: abdominal pain, acid reflux, weight lost with a good appetite, dizziness/tiredness with fatigue, constipation with difficulty to do BM daily and gassy. 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 Pelayo for evaluation of chronic abdominal pain, GERD, constipation, unintentional weight loss and suspected small-bowel bacterial overgrowth Pt has chronic kidney disease stage 3. with serum creatinine around 1.6 mg/dL and this has been relatively unchanged for the past 3 years. The exact etiology for CKD is unclear at this time. Pt was diagnosed with AFib and he had a stroke in 2017. CKD was diagnosed at that time. He is on anticoagulation. TODAY'S VISIT: Patient cc: abdominal pain, acid reflux, weight lost with a good appetite, dizziness/tiredness with fatigue, constipation with difficulty to do BM daily and gassy. Pt is accompanied by his Ex- Wt loss of 14 lbs over the past 9 months. Pt complains of nausea and denies vomiting. Feels hungry and denies any change in food intake and is loosing weight. Patient denies symptoms of heartburn, dysphagia, vomiting, change in appetite. Hx of intermittent constipation and more persistent for the past 2-3 years. Seen in the ER ([facility]) for impaction and treated with an enema - advised constant laxative prescription. Takes Metamucil and Miralax daily. Sometimes take Dulcolax, Mag Citrate Denies recent black stools or rectal bleeding. Has A Fib and denies major pulmonary problems, Pt has insomnia and denies loud snoring or sleep apnea Notes salty and bitter water in his mouth at night and has to get up to spit it out Has been belching a lot and feels food is not digesting properly. Tried a FODMAP diet which did not help - taking a bland diet now. Denies problems with anesthesia in the past. Patient denies known family history of colon polyps, colon cancer or other Sister has GB issues and Mom of Jaundice. After H Pylori was diagnosed he was treated with antibiotics he started he feeling bad. 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 PAST EGD/COLONOSCOPY: EGD in 2022 showed H Pylori Had 2 colonoscopies in the past - last in 2022 [facility] Reviewed - normal CBC and LFTs, negative celiac serologies IMAGING STUDIES: Feb, [address] scan unremarkable from a GI standpoint ENDOSCOPIC STUDIES: 02/23/2022 EGD biopsies 1. Esophagus at 40 cms - squamous mucosa without pathologic change. 2. Random Gastric biopsies -gastric antral and fundic body mucosa without pathologic change. H pylori organisms are not identified on H&E histology. 2021 colonoscopy showed diverticulosis of ascending colon, tubular adenoma in the transverse colon and hemorrhoids. PAST GI HISTORY BY REVIEW OF MEDICAL RECORDS: 06/12/24 PT SEEN IN GI BY AUDREY HUNT: Symptoms started after H Pylori treatment in 2021 FU EGD in 2022 was normal Pt complained of a sour taste in his mouth and he could smell dairy and undigested food in his feces ( of note patient has heightened olfactory awareness since he is blind) He suspected he has an allergy to sugars are other food products He complained of constipation and defecate when he massaged his right back Pantoprazole and Carafate did not agree with him PLAN: Patient was advised an enema for 3-5 days and then magnesium citrate to clean him out. A trial of amitriptyline 10 mg for functional dyspepsia was discussed with the patient. 05/08/24 PATIENT WAS LAST SEEN BY DR. PELAYO: Edmund is a pleasant 78-year-old man with a history of chronic kidney disease stage 3. Serum creatinine has been around 1.6 mg/dL and this has been relatively unchanged for the past 3 years. The exact etiology for CKD is unclear at this time. Back in 2017 he was diagnosed with AFib and he had a stroke. He is on anticoagulation at this time. CKD was diagnosed at that time. No history of hypertension or diabetes mellitus. No urinary symptoms. No polyuria polydipsia no hematuria. No kidney stones. No significant shortness of breath on exertion. He had as leg edema no fever no rash. No joint pains. No nausea or vomiting. No weight loss. He has itching on and off. No significant skin lesions were noted He has significant constipation and recently started on Linzess. Is legally blind 01/10/24 Doing better; NO new issues today ;Has difficulty sleeping ;c/o fatigue 05/08/24 Recent in ER with abd pain- resolved Lost 10 lbs in 6months c/o Constipation Last colonoscopy was in 3 years [facility] Medical History Stage 3b chronic kidney disease (CKD) Atrial fibrillation Hemorrhoid Glaucoma Surgical History History of esophagogastroduodenoscopy (EGD) Hx of colonoscopy Hx of cataract surgery (~08/2023) Social History Household Members: Family Alcohol intake: never Patient Tobacco Use Status: Never used Tobacco Review of Systems Const Reports fatigue, Denies fever(s), Reports headache(s) and Reports weight loss (of 10 lbs) Eyes Denies eye discharge and Denies irritation ENT Reports Normal hearing present, Denies dysphagia, Denies dizziness, Reports headache(s) and Reports hoarseness Card Reports chest pain, Reports irregular heart rhythm, Denies leg edema, Reports dyspnea on exertion and Reports other (Palpitations) Resp Reports cough, Reports dyspnea on exertion and Denies wheezing GI Reports abdominal pain, Denies change in bowel habits, Reports constipation, Denies dysphagia, Reports early satiety, Reports heartburn, Reports diarrhea, Reports nausea and Reports other (pain/acid after eating, precancerous polyps, hemorrhoids) Denies dysuria and Reports other (frequent and burning urination) Musc Denies back pain, Reports arthralgias and Reports other (arthritis) Skin/Breast Denies pruritus, Denies rash and Denies jaundice Neuro Reports Normal hearing present, Denies Abnormal speech present, Denies dizziness, Reports headache(s) and Denies seizure-like activity Psych Denies anxiety, Denies depression and Denies panic attacks Endo Denies cold intolerance, Reports fatigue, Denies flushing and Denies heat intolerance Adria/Lymph Denies easy bleeding and Denies easy bruising Aller/Immun Denies wheezing Physical Exam Vital Signs: Last Vital Signs Pulse 69 08/10/24 10:18 BP 102/63 08/10/24 10:18 Pulse Ox 96 08/10/24 10:18 Oxygen Delivery Method Room Air 08/10/24 10:18 BMI result Body Mass Index 23.0 Const General: healthy appearing, no acute distress and anxious Nutritional Appearance: average body habitus Orientation/consciousness: patient oriented x3 HEENT Head: Yes normal to inspection Ears: hearing grossly normal bilaterally Mouth: Normal oral and palatal mucosa present Eyes Sclerae: sclerae normal Pupils: Equal, round and reactive pupils present Neck Neck: Yes normal visual inspection Chest Chest palpation & inspection: normal inspection of the chest Resp Effort & Inspection: normal respiratory effort Auscultation: clear to auscultation bilaterally Cardio Palpation: normal PMI Rate: regular rate Rhythm: regular rhythm Heart sounds: S1 normal heart sound present, S2 normal heart sound present and no murmurs GI Palpation (GI): Soft to palpation, nontender and No hepatosplenomegaly present Auscultation: normal bowel sounds Rectal Exam - Male: Yes deferred Skin General skin exam: no rashes or lesions noted Neuro General: patient oriented x3, gait normal and moves all extremities Cranial nerves: Yes Equal, round and reactive pupils present and Yes Normal hearing present Speech: No Abnormal speech present Psych Appearance: grossly normal Mental Status: mental status grossly normal Assessment & Plan Assessment & Plan (1) Chronic constipation: Code(s): K59.09 - Other constipation Category: Medical (2) GERD (gastroesophageal reflux disease): Code(s): K21.9 - Gastro-esophageal reflux disease without esophagitis Category: Medical (3) Weight loss: Code(s): R63.4 - Abnormal weight loss Category: Medical (4) Upper abdominal pain: Code(s): R10.10 - Upper abdominal pain, unspecified Category: Medical Plan [address] Pelayo for evaluation of chronic abdominal pain, GERD, constipation, unintentional weight loss and suspected small-bowel bacterial overgrowth Patient has a history of Helicobacter pylori infection which was treated in the past Pt has chronic kidney disease stage 3. with serum creatinine around 1.6 mg/dL and this has been relatively unchanged for the past 3 years. Pt was diagnosed with AFib and he had a stroke in 2017. CKD was diagnosed at that time. He is on oral anticoagulation. He is on Rifaximin for the past week for suspected SIBO. Pt was advised to: 1. Check an H pylori breath test to rule out recurrent Helicobacter pylori. 2. KUB to FU on constipation and rule out obstipation. 3. Barium swallow to evaluate severity of GERD and rule out hiatal hernia. 4. Stool studies to check for IBD and pancreatic insufficiency. 5. Obtain reports of EGD and Colonoscopy from [facility] to determine timing of next EGD and colonoscopy. 6. Pt advised to go on a clear liquid diet and take Miralax over two days to see if his symptoms improve (Pt reported he has done this a few weeks ago and did feel better temporarily) Orders: Orders XR KUB 08/10/24 K59.09 - Other constipation H Pylori Breath Test 08/10/24 [place] barium swallow 08/10/24 K21.9 - Gastro-esophageal reflux disease without esophagitis Vitamin B12 and Folate 08/10/24 R63.4 - Abnormal weight loss Comprehensive Met. Panel 08/10/24 R63.4 - Abnormal weight loss Lipase 08/10/24 R63.4 - Abnormal weight loss Pancreatic Elastase-1 08/15/24 R63.4 - Abnormal weight loss Calprotectin, Fecal 08/15/24 R63.4 - Abnormal weight loss Medications: New polyethylene glycol 3350 (Miralax) Mix Miralax with 64 oz(8 cups) of Crystal light or Gatorade. Wait to have your 1st bowel movement, then begin drinking Miralax. Drink a glass of Miralax every 30 - 40 minutes until you are finished. You will drink at least another 4 cups of clear liquid of your choice. Please drink as many clear liquids as possible 17 grams PO DAILY 238 grams 0RF constipation 1 day linaclotide (Linzess) 145 mcg PO QAM 30 caps 3RF 30 days Coding Level of Care Code New Pt Level 4 (68744) Diagnoses Chronic constipation K59.09 GERD (gastroesophageal reflux disease) K21.9 Weight loss R63.4 Upper abdominal pain R10.10 Time Spent (min) 45
--- OUTSIDE RECORDS SUMMARY | 2024-08-10 11:51 | XMS_ITS | Encounter Summary ---
Author Organization [facility], Address [address] [place] [address] Phone Care Team Providers Care Attendant Self Service Store Name Role Phone Marybeth Hylton MD Primary Care Provider [phone] Encounter Details Date Type Department Care Team (Late st Contact Info) Description 06/17/2023 Documentation Only [facility], [address] [place] [phone] Rebecca Quinn [address] [place] [address] Social History Tobacco Use Types [...] on filedocumented in this encounter Care Teams Attendant Self Service Store Relationship Specialty Start Date End Date Marybeth Hylton MD [address] [place] [phone] PCP - General Internal Medicine 11/30/22 documented as of this encounter
== END 2024-08-10 12:17 | disposition home or self-care (01) ==
LOC: HO.HGI 10:16
PROVIDERS: PCP Internal Medicine; Visit Provider Internal Medicine Gastroenterology
DX: K59.09 Other constipation (principal); K21.9 Gastro-esophageal reflux disease without esophagitis; R63.4 Abnormal weight loss; R10.10 Upper abdominal pain, unspecified
CPT/HCPCS: 99204

== ENCOUNTER → 2024-08-10 12:04 | Outpatient (BNV) | payer MEDICARE, MEDICAID, SELFPAY | PROVIDERS: PCP Internal Medicine; Visit Provider Radiology Diagnostic Radiology | DX: R10.84 Generalized abdominal pain (principal) | CPT/HCPCS: 74018 ==

== ENCOUNTER 2024-08-15 13:14 | Outpatient (REF) | payer MEDICARE, MEDICAID, SELFPAY ==
--- OUTSIDE RECORDS SUMMARY | 2024-08-15 14:24 | XMS_ITS | Data Portability ---
Author Organization [place] - [facility], Allergy Address [address] [facility] [address] [place] [phone] Care Team Providers Care Fashion Coordinator Name Role Phone [address] Primary Care [...] on diagnostic imaging of skull and head [id number] Active 2023 ABIEL Garza MD [address] [address], [place], [phone], [place] [facility] 13:57:09 Posterior rhinorrhea 16645404 Active 2023 ABIEL Garza MD [address] [address], [place], [phone], [place] [facility] 4 13:57:15 Chronic hoarseness [id number] Active 2023 ABIEL Garza MD [address] [address], [place], [phone], [facility] - [facility] 4 13:57:25 Impacted cerumen of bilateral ears 2228067295261 108 Active 2023 ABIEL Garza MD [address] [address], [place], [phone], [facility] - [facility] 4 14:11:28 Problem Notes None recorded. Procedures Surgical History Date Name Laterality Status Provider Name and Address Organization Details Recorded Time 11/12/19 24 Cerumen removal with microscope bilateral completed ABIEL AMADOR MD [address] [place] [address],[address] [address], [place], [phone], [facility] - [facility] 11/12/2023 14:11:49 11/12/19 24 FFL_RE completed ABIEL AMADOR MD [address] [facility],[address] [address], [place], [phone], [facility] - [facility] 11/12/2023 14:08:59 Cataract surg w/iol 1 stage completed Mannie Ambrose [facility] 11/12/2023 13:17:31 Imaging Results None recorded. Procedure Notes None [...] Not Available Not Available No t Available GaviLyte-G 236 gram-22.74 gram-6.74 gram-5.86 gram oral solution [...] Updated DateTime 11/12/2023 180.34 cm 24.7 kg/m2 08504.85 g Mannie Ambrose [place] - [facility] 11/12/2023 13:28:45 Social History None recorded. Functional Status None recorded. Mental Status None recorded. Family History Nothing Reported. Medical History No medical history recorded. Past Encounters Encounter ID Performer Location Encounter Start Date Encounter Closed Date Diagnosis/Indication Diagnosis SNOMED-CT Code Diagnosis ICD10 Code Diagnosis Note [id number] ABIEL AMADOR MD [facility] on [address] [place] [address] 11/12/2023 12:52:54 11/12/2023 15:18:02 Abnormal findings on diagnostic imaging of skull and head [id number] R93.0 mucus retention cyst seen on CT. I gave reassuranc e. No polyps on nasal endo. Posterior rhinorrhea 758 13391 R09.82 encouraged hydration and Neilmed sinus rinse. 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 Impacted c erumen of bilateral ears [id number] 699130 H61.23 Recurrent Cerumen Impactions : Ears were meticulous ly cleaned bilaterall y today with a curette and suction. The patient tolerated this well and will follow up for repeat debridemen t per routine. Health Concerns Section Related Observation LastModified by Organization Detai ls LastModified Time None Recorded Concern Status LastModified by Organization Details LastModified Time None Recorded Advance Directives Directive None Recorded Payers Insurance Date Sequence Insurance Name Policy Number Policy Lal Covered Member ID Lal Member ID Guarantor Name 11/12/2023 2 [place] [employer] Edmund Allison [id number] Edmund Allison 11/15/2023 1 [place] B[place] [employer] Edmund Allison [id number] Edmund Allison Notes Date Note Type Note [...] He is legally blind. ABIEL AMADOR MD [address] [place] [address], [phone], [place] - [facility] 11/12/2023 14:12:09
--- OUTSIDE RECORDS SUMMARY | 2024-08-15 14:24 | XMS_ITS | Encounter Summary ---
Author Organization [facility], Address [address] [place] [address] Phone Care Team Providers Care Bench Shear Operator Name Role Phone Marybeth Hylton MD Primary Care Provider [phone] Encounter Details Date Type Department Care Team (Late st Contact Info) Description 06/17/2023 Documentation Only [facility], [address] [place] [phone] Rebecca Quinn [address] [place] [address] Social History Tobacco Use Types [...] on filedocumented in this encounter Care Teams Bench Shear Operator Relationship Specialty Start Date End Date Marybeth Hylton MD [address] [place] [phone] PCP - General Internal Medicine 11/30/22 documented as of this encounter
--- OUTSIDE RECORDS SUMMARY | 2024-08-15 14:24 | XMS_ITS | Encounter Summary ---
Author Organization [employer] Address [address] [facility] [address] [place] [address] Care Team Providers Care Metal Tube Cutter Name Role Phone Eliezer Torres PA-C Primary Care Provider [phone] Encounter Details Date Type Department Care Team ([facility] Contact Info) Description 07/27/2024 Telephone [facility] ELIGIBILITY [address] [phone] Eliezer Torres PA-C [address] [place] [address] Social History Tobacco Use Types Packs/Day Years Used Date Smoking Tobacco: Never Smokeless Tobacco: Never Alcohol Use Standard Drinks/Week Comments Not Currently 0 (1 standard drink = 0.6 oz pur e alcohol) Sex and Gender Information Value Date Recorded Sex Assigned at Male 03/16/2022 5:35 PM EST Legal Sex Male 8:38 PM EST Gender Identity Male 12/26/2021 8:38 PM EST Sexual Orientation Straight 12/26/2021 8: 38 PM EST documented as of this encounter Miscellaneous Notes * Telephone Encounter - Swathi Peralta - 07/27/2024 3:10 PM EDT Pt says he have a sharp tooh which cutting his tongue and it's so much painful. He req to been seen urgently. Booked him on 08/08 at 9:30 documented in this encounter Plan of Treatment Not on file documented as of this encounter Visit Diagnoses Not on filedocumented in this encounter Care Teams Metal Tube Cutter Relationship Specialty Start Date End Date Eliezer Torres PA-C [address] [place] [address] PCP - General Family Medicine 06/09/23 documented as of this encounter
[2024-08-21 01:54] LABS: Calprotectin, Fecal 47 mcg/g
== END 2024-08-15 13:15 | disposition home or self-care (01) ==
LOC: HO.LNP 13:14
PROVIDERS: Visit Provider Internal Medicine Gastroenterology
DX: R63.4 Abnormal weight loss (principal)
CPT/HCPCS: 82656; 83993

== ENCOUNTER 2024-09-01 07:42 | Outpatient (AMB) | payer MEDICARE, MEDICAID, SELFPAY ==
--- NOTE | 2024-09-01 07:42 | A.OFFVIS_ITS ---
Intake Visit Reasons: SIBO Intake Note: Edmund presents as a telehealth to go over results SIBO. CC: States that he has been in a lot of pain in the stomach - constipation no diarrhea. Would like to have an EGD and COLO. States that he is also having acid reflux. States that he was given Gavilax but he is not sure if he is supposed to take it? It says that he takes miralax that he confirmed so I am not sure about the Gavilax Rx as well. Allergies codeine Allergy (Unknown, Verified 09/11/24 14:42) Unknown Medication List - Last Reconciled 09/01/24 by Saba Stacy MD apixaban (Eliquis) 2.5 mg PO BID unoghuifzq-obiqponjbl-emo-cod [id number] mg 1 cap PO Q4H PRN cholecalciferol (vitamin D3) 10 mcg PO DAILY dorzolamide-timolol 22.3-6.8 mg/mL ophthalmic (eye) BID famotidine 20 mg PO BID polyethylene glycol 3350 (Miralax) 17 grams PO DAILY 1 day tramadol 50 mg PO TID PRN HPI HPI SIBO: Details: Telemedicine visit for this 79 [address] Ibanez for evaluation of chronic abdominal pain, GERD, constipation, unintentional weight loss and suspected small-bowel bacterial overgrowth Pt has chronic kidney disease stage 3. with serum creatinine around 1.6 mg/dL and this has been relatively unchanged for the past 3 years. The exact etiology for CKD is unclear at this time. Pt was diagnosed with AFib and he had a stroke in 2017. CKD was diagnosed at that time. He is on anticoagulation. TODAY'S VISIT: CC: States that he has been in a lot of pain in the stomach - constipation no diarrhea. Would like to have an EGD and COLO. States that he is also having acid reflux. States that he was given Gavilax but he is not sure if he is supposed to take it? It says that he takes miralax that he confirmed so I am not sure about the Gavilax Rx as well. Feels a little better. Continues to have constipation - gets the urge and nothing comes out. Taking Miralax daily and dulcolax 2 tab at night with intermittent results. Took Miralax prep and felt better for a week or so. Takes an enema once in a while - which works right away. 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 PAST VISITS: Patient cc: abdominal pain, acid reflux, weight lost with a good appetite, dizziness/tiredness with fatigue, constipation with difficulty to do BM daily and gassy. Pt is accompanied by his Ex- Wt loss of 14 lbs over the past 9 months. Pt complains of nausea and denies vomiting. Feels hungry and denies any change in food intake and is loosing weight. Patient denies symptoms of heartburn, dysphagia, vomiting, change in appetite. Hx of intermittent constipation and more persistent for the past 2-3 years. Seen in the ER ([facility]) for impaction and treated with an enema - advised constant laxative prescription. Takes Metamucil and Miralax daily. Sometimes take Dulcolax, Mag Citrate Denies recent black stools or rectal bleeding. Has A Fib and denies major pulmonary problems, Pt has insomnia and denies loud snoring or sleep apnea Notes salty and bitter water in his mouth at night and has to get up to spit it out Has been belching a lot and feels food is not digesting properly. Tried a FODMAP diet which did not help - taking a bland diet now. Denies problems with anesthesia in the past. Patient denies known family history of colon polyps, colon cancer or other Sister has GB issues and Mom of Jaundice. After H Pylori was diagnosed he was treated with antibiotics he started he feeling bad. 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 PAST EGD/COLONOSCOPY: EGD in 2022 showed H Pylori Had 2 colonoscopies in the past - last in 2022 [facility] [employer] [employer] : 12/2023 Reviewed - normal CBC and LFTs IMAGING STUDIES: No recent GI imaging studies Pt reports he had a CT scan at [facility]IC STUDIES: [] PAST GI HISTORY BY REVIEW OF MEDICAL RECORDS: 05/08/24 PATIENT WAS LAST SEEN BY DR. IBANEZ: Edmund is a pleasant 78-year-old man with a history of chronic kidney disease stage 3. Serum creatinine has been around 1.6 mg/dL and this has been relatively unchanged for the past 3 years. The exact etiology for CKD is unclear at this time. Back in 2017 he was diagnosed with AFib and he had a stroke. He is on anticoagulation at this time. CKD was diagnosed at that time. No history of hypertension or diabetes mellitus. No urinary symptoms. No polyuria polydipsia no hematuria. No kidney stones. No significant shortness of breath on exertion. He had as leg edema no fever no rash. No joint pains. No nausea or vomiting. No weight loss. He has itching on and off. No significant skin lesions were noted He has significant constipation and recently started on Linzess. Is legally blind 01/10/24 Doing better; NO new issues today ;Has difficulty sleeping ;c/o fatigue 05/08/24 Recent in ER with abd pain- resolved Lost 10 lbs in 6months c/o Constipation Last colonoscopy was 3 years ago [facility] Medical History (Updated 08/10/24 @ 11:23 by Saba Stacy MD) Stage 3b chronic kidney disease (CKD) Atrial fibrillation Hemorrhoid Glaucoma Surgical History Hx of cataract surgery (~08/2023) Social History Household Members: Family Alcohol intake: never Patient Tobacco Use Status: Never used Tobacco Review of Systems Const All systems reviewed & are unremarkable except as noted in HPI and below Telehealth Telehealth Telehealth Platform: Telephone Location of provider rendering services: practice address Location of patient: address on file Patient Identification confirmed using: Name, : Yes Telehealth method: voice only Patient verbally consented to treatment: Yes Patient verbally consented to billing insurance company: Yes Patient informed of any privacy concerns related to visit: Yes Minutes spent on Phone/Video with Pt.: 25 Assessment & Plan Assessment & Plan (1) Chronic constipation: Code(s): K59.09 - Other constipation Category: Medical (2) GERD (gastroesophageal reflux disease): Code(s): K21.9 - Gastro-esophageal reflux disease without esophagitis Category: Medical (3) Weight loss: Code(s): R63.4 - Abnormal weight loss Category: Medical Plan [address] Ibanez for evaluation of chronic abdominal pain, GERD, constipation, unintentional weight loss and suspected small-bowel bacterial overgrowth Patient has a history of Helicobacter pylori infection which was treated in the past Pt has chronic kidney disease stage 3. with serum creatinine around 1.6 mg/dL and this has been relatively unchanged for the past 3 years. Pt was diagnosed with AFib and he had a stroke in 2017. CKD was diagnosed at that time. He is on oral anticoagulation. He is on Rifaximin for the past week for suspected SIBO. Pt was advised to: 1. Check an H pylori breath test to rule out recurrent Helicobacter pylori - negative. 2. KUB to FU on constipation and rule out obstipation. 3. Barium swallow to evaluate severity of GERD and rule out hiatal hernia - scheduled 11/30/24. 4. Stool studies to check for IBD and pancreatic insufficiency - Normal. 5. Obtain reports of EGD and Colonoscopy from [facility] to determine timing of next EGD and colonoscopy. 6. Pt advised to go on a clear liquid diet and take Miralax over two days to see if his symptoms improve (Pt reported he has done this a few weeks ago and did feel better temporarily) 09/01/24 Continues to have constipation - gets the urge and nothing comes out. Taking Miralax daily and dulcolax 2 tab at night with intermittent results. Took Miralax prep and felt better for a week or so. Takes an enema once in a while - which works right away. Schedule EGD and Colon Medications: New bisacodyl (Dulcolax (bisacodyl)) Take 2 tablets at 8 pm starting 5 days before colonoscopy 10 mg (2 x 5 mg) PO ONCE 10 tabs 0RF Colon prep 5 days polyethylene glycol 3350 (Miralax) Mix Miralax with 64 oz(8 cups) of Crystal light. Take 2 tablets of Dulcolax qt 12 pm. Wait to have your 1st bowel movement, then begin drinking Miralax. Drink a glass of Miralax every 10-15 minutes until you are finished. You will drink at least another 4 cups of clear liquid of your choice over next 2 hours. Please drink as many clear liquids as possible You may have clear liquids up to four hours before your procedure 17 grams PO DAILY 238 grams 0RF colon prep 1 day Coding Level of Care Code Tele Est Pt Level 4 (50478) Diagnoses Chronic constipation K59.09 GERD (gastroesophageal reflux disease) K21.9 Weight loss R63.4 Time Spent (min) 25
--- OUTSIDE RECORDS SUMMARY | 2024-09-01 07:43 | XMS_ITS | Encounter Summary ---
Author Organization [employer] Address [address] [facility] [address] [place] [address] Care Team Providers Care Spline Rolling Machine Job Setter Name Role Phone Eliezer Torres PA-C Primary Care Provider [phone] Encounter Details Date Type Department Care Team ([facility] Contact Info) Description 07/27/2024 Telephone [facility] OM ELIGIBILITY [address] [phone] Eliezer Torres PA-C [address] [place] [address] Social History Tobacco Use Types Packs/Day Years [...] on filedocumented in this encounter Care Teams Spline Rolling Machine Job Setter Relationship Specialty Start Date End Date Eliezer Torres PA-C [address] [place] [address] PCP - General Family Medicine 06/09/23 documented as of this encounter
--- OUTSIDE RECORDS SUMMARY | 2024-09-01 07:43 | XMS_ITS | Clinical Summary ---
Author Organization [facility] Address [address] [place] [address] Phone Care Team Providers Care Binding Cementer French Cord Name Role Phone Marybeth Hylton MD Primary Care Provider [phone] Encounters Date Type Department Care Team Description 07/28/2024 Transcribe Orders [facility] Rheumatology [address] [place] [address] Dariana Good, HUSSEIN Dysgeusia (Primary Dx) from Last 3 Months Social History Tobacco Use Types Packs/Day Years Used Date Smoking Tobacco: Never Assessed Sex and Gender Information Value Date Recorded Sex Assigned at Not on file Legal Sex Male 8:39 AM EDT Gender Identity Not on file Sexual Orientation Not on file Plan of Treatment Not on file Medical Devices Not on file Insurance MEDICARE PART A & B [facility] MEDICARE PART A & B HEALTH MEDICARE PART A & [place] A & B Member Subscriber Plan / Payer (Ef fective 1999-) Name:Edmund Allison Member ID:[id number] Relation to Subscriber:Self Name:Edmund Allison Subscriber ID:[id number] Payer ID:[id number] Group ID:Not on file Type:Medicare Address: [facility] [employer] [address] [place] A & [place] [facility] Care Teams Binding Cementer French Cord Relationship Specialty Start Date End Date Marybeth Hylton MD [address] [place] [address] [email or web address] PCP - General Internal Medicine 05/24/24 Additional Source Comments The information contained in this document represents components of the legal health record. It is not the complete legal health record.[facility]
--- OUTSIDE RECORDS SUMMARY | 2024-09-01 07:43 | XMS_ITS | Encounter Summary ---
Author Organization [facility], Address [address] [place] [address] Phone Care Team Providers Care Care Mgr Name Role Phone Marybeth Hylton MD Primary Care Provider [phone] Encounter Details Date Type Department Care Team (Late st Contact Info) Description 06/17/2023 Documentation Only [facility], [address] [place] [phone] Rebecca Quinn [address] [place] [address] Social History Tobacco Use Types [...] on filedocumented in this encounter Care Teams Care Mgr Relationship Specialty Start Date End Date Marybeth Hylton MD [address] [place] [phone] PCP - General Internal Medicine 11/30/22 documented as of this encounter
--- OUTSIDE RECORDS SUMMARY | 2024-09-01 07:43 | XMS_ITS | Data Portability ---
Author Organization [place] [facility], Allergy Address [address] [address] [place] [address] Care Team Providers Care Table And Desk Finisher Name Role Phone [address] Primary Care [...] on diagnostic imaging of skull and head 585241878 Active 2023 ABIEL Garza MD [address] [address], [place], [address], [place] [facility] 13:57:09 Posterior rhinorrhea 68133833 Active 2023 ABIEL Garza MD [address] [address], [place], [phone], [place] [facility] 4 13:57:15 Chronic hoarseness 6886450233082 Active 2023 ABIEL Garza MD [address] [address], [place], [address], [facility] 4 13:57:25 Impacted cerumen of bilateral ears 8880762651070 108 Active 2023 ABIEL Garza MD [address] [address], [place], [address], [facility] - [facility] 4 14:11:28 Problem Notes None recorded. Procedures Surgical History Date Name Laterality Status Provider Name and Address Organization Details Recorded Time 11/12/19 24 Cerumen removal with microscope bilateral completed ABIEL MAADOR MD [address] [place] [address],[address] [address], [place], [address], [facility] - [facility] 11/12/2023 14:11:49 11/12/19 24 FFL_RE completed ABIEL AMADOR MD [address] [address] [address], [place], [address], [facility] - [facility] 11/12/2023 14:08:59 Cataract surg w/iol 1 stage completed Mannie Ambrose [facility] 11/12/2023 13:17:31 Imaging Results None recorded. Procedure [...] Updated DateTime 11/12/2023 180.34 cm 24.7 kg/m2 91546.85 g Mannie Ambrose [place] - [facility] 11/12/2023 13:28:45 Social History None recorded. Functional Status None recorded. Mental Status None recorded. Family History Nothing Reported. Medical History No medical history recorded. Past Encounters Encounter ID Performer Location Encounter Start Date Encounter Closed Date Diagnosis/Indication Diagnosis SNOMED-CT Code Diagnosis ICD10 Code Diagnosis Note [id number] ABIEL AMADOR MD [facility] on [address] [place] [address] 11/12/2023 12:52:54 11/12/2023 15:18:02 Abnormal findings on diagnostic imaging of skull and head 606452005 R93.0 mucus retention cyst seen on CT. I gave reassuranc e. No polyps on nasal endo. Posterior rhinorrhea 758 01062 R09.82 encouraged hydration and Neilmed sinus rinse. 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 Impacted c erumen of bilateral ears [id number] 480418 H61.23 Recurrent Cerumen Impactions : Ears were [...] Member ID Guarantor Name 11/12/2023 2 [place] [employer] Edmund Allison [id number] Edmund Allison 11/15/2023 1 [place] B[place] [employer] Edmund Allison [id number] Edmund Allison Notes Date Note Type Note [...] He is legally blind. ABIEL AMADOR MD [address] [place] [address], [address], [place] [facility] 11/12/2023 14:12:09
== END 2024-09-01 09:50 | disposition home or self-care (01) ==
LOC: HO.HGI 07:42
PROVIDERS: PCP Internal Medicine; Visit Provider Internal Medicine Gastroenterology
DX: K59.09 Other constipation (principal); K21.9 Gastro-esophageal reflux disease without esophagitis; R63.4 Abnormal weight loss
CPT/HCPCS: 99214

== ENCOUNTER 2024-09-11 14:38 | Outpatient (AMB) | payer MEDICARE, MEDICAID, SELFPAY ==
[2024-09-11 14:39] VITALS: BP 102/68; PULSE 75; O2SAT 97; BMI 23.4
--- NOTE | 2024-09-11 14:39 | HO.NEPHOV_ITS ---
Vital Signs 09/11/24 14:39 Height 5 ft 11 in Weight 168 lb BMI 23.4 BP 102/68 Blood Pressure Location Lt brachial Position Sitting Pulse 75 Pulse Source Pulse Oximeter Pulse Oximetry (%) 97 Oxygen Delivery Method Room Air Intake Visit Reasons: 4 MO FU-Conf Lathe Mechanic Required: No Accompanied by: Spouse Allergies codeine Allergy (Unknown, Verified 09/11/24 14:42) Unknown Medication List - Last Reconciled 09/11/24 by Yonny Pelayo MD apixaban (Eliquis) 2.5 mg PO BID bisacodyl (Dulcolax (bisacodyl)) 10 mg (2 x 5 mg) PO ONCE 5 days oanyqehkfr-bytewvntxd-afn-cod 17-129-44-30 mg 1 cap PO Q4H PRN cholecalciferol (vitamin D3) 10 mcg PO DAILY dorzolamide-timolol 22.3-6.8 mg/mL ophthalmic (eye) BID famotidine 20 mg PO BID ketorolac 0.5% drps ophthalmic (eye) polyethylene glycol 3350 (Miralax) 17 grams PO DAILY 1 day polyethylene glycol 3350 (Miralax) 17 grams PO DAILY 1 day prednisolone acetate 1% drps ophthalmic (eye) tramadol 50 mg PO TID PRN HPI Comments Details: Edmund is a pleasant elderly man with a history of chronic kidney disease stage 3. Serum creatinine has been around 1.6 mg/dL and this has been relatively unchanged for the past 3 years. The exact etiology for CKD is unclear at this time. Back in 2017 he was diagnosed with AFib and he had a stroke. He is on anticoagulation at this time. CKD was diagnosed at that time. No history of hypertension or diabetes mellitus. No urinary symptoms. No polyuria polydipsia no hematuria. No kidney stones. No significant shortness of breath on exertion. He had as leg edema no fever no rash. No joint pains. No nausea or vomiting. No weight loss. He has itching on and off. No significant skin lesions were noted He has significant constipation and recently started on Linzess. Is legally blind 01/10/24 Doing better; NO new issues today ;Has difficulty sleeping ;c/o fatigue 05/08/24 Recent in ER with abd pain- resolved Lost 10 lbs in 6months c/o Constipation Last colonoscopy was in 3 years 09/11/24 Overall doing OK work up for weight loss in progress Scheduled for endoscopy/colonoscopy [facility] Medical History (Updated 08/10/24 @ 11:23 by Saba Stacy MD) Stage 3b chronic kidney disease (CKD) Atrial fibrillation Hemorrhoid Glaucoma Surgical History Hx of cataract surgery (~08/2023) Social History Household Members: Family Alcohol intake: never Patient Tobacco Use Status: Never used Tobacco Physical Exam Vital Signs: Last Vital Signs Pulse 75 09/11/24 14:39 BP 102/68 09/11/24 14:39 Pulse Ox 97 09/11/24 14:39 Oxygen Delivery Method Room Air 09/11/24 14:39 BMI result Body Mass Index 23.4 Comfortable Neck supple no JVD. Lungs entry equal no rales. Heart S1-S2 heard no gallop or rub. Abdomen soft nontender. Neuro alert awake oriented. No asterixis. Extremities no edema. Results Reviewed Nephrology Results: Hgb, (14.0-18.0) 14.2 g/dl 01/10/24 WBC, (4.8-10.8) 7.2 X10*3/uL 01/10/24 Plt Count, (160-400) 231 X10*3/uL 01/10/24 Sodium, (135-145) 138 mmol/L 08/10/24 Potassium, (3.3-5.1) 4.0 mmol/L 08/10/24 Chloride, (96-108) 107 mmol/L 08/10/24 Carbon Dioxide, (22-29) 27 mmol/L 08/10/24 BUN, (9-16) 22 mg/dL H 08/10/24 Creatinine, (0.5-1.4) 1.75 mg/dL H 08/10/24 Calcium, (8.4-10.2) 9.4 mg/dL Δ 08/10/24 Phosphorus, (2.7-4.5) 3.5 mg/dL 01/10/24 PTH Intact, (8.7-77.1) 94.4 pg/mL H 01/10/24 Urine Protein, (Neg-Trace) Negative mg/dL 01/10/24 Urine Creatinine 173.40 mg/dL 01/10/24 Assessment & Plan Assessment & Plan (1) Stage 3b chronic kidney disease (CKD): Code(s): N18.32 - Chronic kidney disease, stage 3b Category: Medical Plan 79-year-old man with CKD 3. Serum creatinine has been stable at 1.6 for the last few years. 24 urine collection for creatinine clearance. Renal ultrasonogram - unremarkable Urine studies : NO protienuria. [place] UA At present blood pressure remains low but he is asymptomatic. Trace Leg edema. Etiology is unclear. Recently had echocardiogram and was reportedly normal. Based on recent blood work there is no evidence of any significant anemia or secondary hyperparathyroidism. Mild Vit D deficiency Added VIt D Constipation with weight loss Workup in progress . Orders: Orders Basic Metabolic Panel 6 Months N18.32 - Chronic kidney disease, stage 3b Complete Blood Count no Diff 6 Months N18.32 - Chronic kidney disease, stage 3b Coding Level of Care Code Est Pt Level 4 (53974) Diagnoses Stage 3b chronic kidney disease (CKD) N18.32
--- OUTSIDE RECORDS SUMMARY | 2024-09-11 15:13 | XMS_ITS | Clinical Summary ---
Author Organization [facility] Address [address] [place] [phone] Phone Care Team Providers Care Poker Room Manager Name Role Phone Marybeth Hylton MD Primary Care Provider [phone] Encounters Date Type Department Care Team Description 07/28/2024 Transcribe Orders [facility] Rheumatology [address] [place] [address] Dariana Good, HUSSEIN Dysgeusia (Primary Dx) from [...] file Insurance MEDICARE PART A & B [facility] MEDICARE PART A & B HEALTH MEDICARE PART A & [place] A & B Member Subscriber Plan / Payer (Ef fective 1999-) Name:Edmund Allison Member ID:[id number] Relation to Subscriber:Self Name:Edmund Allison Subscriber ID:[id number] Payer ID:[id number] Group ID:Not on file Type:Medicare Address: [facility] [employer] [address] [place] PART A & [place] B [facility] Care Teams Poker Room Manager Relationship Specialty Start Date End Date Marybeth Hylton MD [address] [place] [id number] [email or web address] PCP - General Internal Medicine 05/24/24 Additional Source Comments The information contained in this document represents components of the legal health record. It is not the complete legal health record.[facility]
--- OUTSIDE RECORDS SUMMARY | 2024-09-11 15:13 | XMS_ITS | Data Portability ---
Author Organization [place] [facility], Allergy Address [address] [facility] [address] [place] [address] Care Team Providers Care Business Development Associate Name Role Phone [address] Primary Care [...] on diagnostic imaging of skull and head 590575122 Active 2023 ABIEL Garza MD [address] [address], [place], [phone], [place] [facility] 13:57:09 Posterior rhinorrhea 30256179 Active 2023 ABIEL Garza MD [address] [address], [place], [phone], [place] [facility] 4 13:57:15 Chronic hoarseness [id number] Active 2023 ABIEL Garza MD [address] [address], [place], [phone], [facility] 4 13:57:25 Impacted cerumen of bilateral ears [id number] 108 Active 2023 ABIEL Garza MD [address] [address], [place], [address], [facility] - [facility] 4 14:11:28 Problem Notes None recorded. Procedures Surgical History Date Name Laterality Status Provider Name and Address Organization Details Recorded Time 11/12/19 24 Cerumen removal with microscope bilateral completed ABIEL AMADOR MD [address] [place] [address],[address] [address], [place], [address], [facility] - [facility] 11/12/2023 14:11:49 11/12/19 24 FFL_RE completed ABIEL AMADOR MD [address] [facility],[address] [address], [place], [address], [facility] - [facility] 11/12/2023 14:08:59 Cataract surg w/iol 1 stage completed Mannie Ambrose [facility] 11/12/2023 13:17:31 Imaging Results None recorded. Procedure [...] Updated DateTime 11/12/2023 180.34 cm 24.7 kg/m2 18912.85 g Mannie Ambrose [place] - [facility] 11/12/2023 13:28:45 Social History None recorded. Functional Status None recorded. Mental Status None recorded. Family History Nothing Reported. Medical History No medical history recorded. Past Encounters Encounter ID Performer Location Encounter Start Date Encounter Closed Date Diagnosis/Indication Diagnosis SNOMED-CT Code Diagnosis ICD10 Code Diagnosis Note [id number] ABIEL AMADOR MD [facility] Counts include 234 beds at the [facility] on [address] [place] [address] 11/12/2023 12:52:54 11/12/2023 15:18:02 Abnormal findings on diagnostic imaging of skull and head 441442556 R93.0 mucus retention cyst seen on CT. I gave reassuranc e. No polyps on nasal endo. Posterior rhinorrhea 758 99605 R09.82 encouraged hydration and Neilmed sinus rinse. 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 Impacted c erumen of bilateral ears [id number] 626506 H61.23 Recurrent Cerumen Impactions : Ears were [...] Member ID Guarantor Name 11/12/2023 2 [place] [employer] Edmund Keegan [id number] Edmund Keegan 11/15/2023 1 [place] B[place] [employer] Edmund Mcneal Keegan [id number] Edmund Allison
--- OUTSIDE RECORDS SUMMARY | 2024-09-11 15:13 | XMS_ITS | Encounter Summary ---
Author Organization [facility], Address [address] [place] [address] Phone Care Team Providers Care Voice Teacher Name Role Phone Marybeth Hylton MD Primary Care Provider [phone] Encounter Details Date Type Department Care Team (Late st Contact Info) Description 06/17/2023 Documentation Only [facility], [address] [place] [phone] Rebecca Quinn [address] [place] [address] Social History Tobacco Use Types [...] on filedocumented in this encounter Care Teams Voice Teacher Relationship Specialty Start Date End Date Marybeth Hylton MD [address] [place] [phone] PCP - General Internal Medicine 11/30/22 documented as of this encounter
--- OUTSIDE RECORDS SUMMARY | 2024-09-11 15:13 | XMS_ITS | Encounter Summary ---
Author Organization [employer] Address [address] [facility] [address] [place] [address] Care Team Providers Care Rubber Mixer Name Role Phone Eliezer Torres PA-C Primary Care Provider [phone] Encounter Details Date Type Department Care Team ([facility] Contact Info) Description 07/27/2024 Telephone [facility] [address] [phone] Eliezer Torres PA-C [address] [place] [address] Social History Tobacco Use Types Packs/Day Years [...] on filedocumented in this encounter Care Teams Rubber Mixer Relationship Specialty Start Date End Date Eliezer Torres PA-C [address] [place] [address] PCP - General Family Medicine 06/09/23 documented as of this encounter
== END 2024-09-11 14:59 | disposition home or self-care (01) ==
LOC: HO.HKA 14:39
PROVIDERS: PCP Internal Medicine; Visit Provider Internal Medicine Hypertension Specialist
DX: N18.32 Chronic kidney disease, stage 3b (principal)
CPT/HCPCS: 99214

== ENCOUNTER → 2024-09-11 14:38 | Outpatient (BNVA) | payer MEDICARE, MEDICAID, SELFPAY | PROVIDERS: PCP Internal Medicine; Visit Provider Internal Medicine Hypertension Specialist | DX: N18.32 Chronic kidney disease, stage 3b (principal); Z79.01 Long term (current) use of anticoagulants; Z79.891 Long term (current) use of opiate analgesic; Z79.899 Other long term (current) drug therapy | CPT/HCPCS: 99212 ==

== ENCOUNTER 2024-09-18 12:01 | Day surgery (SDC) | payer MEDICARE, MEDICAID, SELFPAY ==
--- OUTSIDE RECORDS SUMMARY | 2024-09-07 07:21 | XMS_ITS | Encounter Summary ---
Author Organization [facility], Address [address] [place] [address] Phone Care Team Providers Care Grants And Contracts Assistant Name Role Phone Marybeth Hylton MD Primary Care Provider [phone] Encounter Details Date Type Department Care Team (Late st Contact Info) Description 06/17/2023 Documentation Only [facility], [address] [place] [phone] Rebecca Quinn [address] [place] [address] Social History Tobacco Use Types [...] on filedocumented in this encounter Care Teams Grants And Contracts Assistant Relationship Specialty Start Date End Date Marybeth Hylton MD [address] [place] [phone] PCP - General Internal Medicine 11/30/22 documented as of this encounter
--- OUTSIDE RECORDS SUMMARY | 2024-09-07 07:22 | XMS_ITS | Clinical Summary ---
Author Organization [facility] Address [address] [place] [address] Phone Care Team Providers Care Cognos Lead Name Role Phone Marybeth Hylton MD Primary Care Provider [phone] Encounters Date Type Department Care Team Description 07/28/2024 Transcribe Orders [facility] Rheumatology [address] [place] [address] Dariana Good, HUSSEIN Dysgeusia (Primary Dx) from [...] file Insurance MEDICARE PART A & B [facility] MEDICARE PART A & B HEALTH MEDICARE PART A & [place] A [place] B Member Subscriber Plan / Payer (Ef fective 1999-) Name:Edmund Allison Member ID:[id number] Relation to Subscriber:Self Name:Edmund Allison Subscriber ID:[id number] Payer ID:[id number] Group ID:Not on file Type:Medicare Address: [facility] [employer] [address] [place] MED[place] PART A & B [place] PART A & B [facility] Care Teams Cognos Lead Relationship Specialty Start Date End Date Marybeth Hylton MD [address] [place] [address] [email or web address] PCP - General Internal Medicine 05/24/24 Additional Source Comments The information contained in this document represents components of the legal health record. It is not the complete legal health record.[facility]
--- OUTSIDE RECORDS SUMMARY | 2024-09-07 07:22 | XMS_ITS | Encounter Summary ---
Author Organization [employer] Address [address] [facility] [address]t [place] [address] Care Team Providers Care Water Pumper Name Role Phone Eliezer Torres PA-C Primary Care Provider [phone] Encounter Details Date Type Department Care Team ([facility] Contact Info) Description 07/27/2024 Telephone [facility] ELIGIBILITY [address] [phone] Eliezer Torres PA-C [address] [place] [address] Social History Tobacco Use Types Packs/Day Years [...] on filedocumented in this encounter Care Teams Water Pumper Relationship Specialty Start Date End Date Eliezer Torres PA-C [address] [place] [address] PCP - General Family Medicine 06/09/23 documented as of this encounter
--- OUTSIDE RECORDS SUMMARY | 2024-09-07 07:22 | XMS_ITS | Data Portability ---
Author Organization [place] [facility], [facility] Address [address] [facility] [address] [place] [address] Care Team Providers Care Weatherization Crew Leader Name Role Phone [address] Primary Care [...] on diagnostic imaging of skull and head 750663630 Active 2023 ABIEL Garza MD [address] [address], [place], [address], [place] [facility] 13:57:09 Posterior rhinorrhea 33436085 Active 2023 ABIEL Garza MD [address] [address], [place], [address], [place] [facility] 4 13:57:15 Chronic hoarseness 4686162655151 Active 2023 ABIEL Garza MD [address] [address], [place], [address], [facility] 4 13:57:25 Impacted cerumen of bilateral ears 7579136026109 108 Active 2023 ABIEL Garza MD [address] [address], [place], [address], [facility] 4 14:11:28 Problem Notes None recorded. Procedures Surgical History Date Name Laterality Status Provider Name and Address Organization Details Recorded Time 11/12/19 24 Cerumen removal with microscope bilateral completed ABIEL AMADOR MD [address] [place] [address],[address] [address], [place], [address], [facility] 11/12/2023 14:11:49 11/12/19 24 FFL_RE completed ABIEL AMADOR MD [address] [facility],[address] [address], [place], [address], [facility] 11/12/2023 14:08:59 Cataract surg w/iol 1 stage completed Mannie Ambrose [facility] 11/12/2023 13:17:31 Imaging Results None recorded. Procedure [...] Updated DateTime 11/12/2023 180.34 cm 24.7 kg/m2 93199.85 g Mannie Ambrose [place] - [facility] 11/12/2023 13:28:45 Social History None recorded. Functional Status None recorded. Mental Status None recorded. Family History Nothing Reported. Medical History No medical history recorded. Past Encounters Encounter ID Performer Location Encounter Start Date Encounter Closed Date Diagnosis/Indication Diagnosis SNOMED-CT Code Diagnosis ICD10 Code Diagnosis Note [id number] ABIEL AMADOR MD [facility] on [address] [place] [address] 11/12/2023 12:52:54 11/12/2023 15:18:02 Abnormal findings on diagnostic imaging of skull and head 190536153 R93.0 mucus retention cyst seen on CT. I gave reassuranc e. No polyps on nasal endo. Posterior rhinorrhea 758 [address] R09.82 encouraged hydration and Neilmed sinus rinse. 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 Impacted c erumen of bilateral ears 0105363317 033493 H61.23 Recurrent Cerumen Impactions : Ears were [...] Member ID Guarantor Name 11/12/2023 2 [place] [employer] Edmund Allison [id number] Emdund Allison 11/15/2023 1 [place] [employer] Edmund Allison [id number] Edmund Allison Notes Date Note Type Note [...] He is legally blind. ABIEL AMADOR MD [address] [place] [address], [address], [place] [facility] 11/12/2023 14:12:09
--- NOTE | 2024-09-15 10:09 | HO.ANESPROP2 ---
Documented by User: Spring Rice NP 09/15/24 10:14 HPI - Anesthesia Eval Consult details Narrative: 79yo M for Upper Endoscopy and Colonoscopy Follows [facility] Cardiology for afib (on eliquis). Last office visit 06/2024 - stable after nml stress test d/t ER for chest pain. PMFSH Active Problems Active Problems: All Active Problems Weight loss (Acute) GERD (gastroesophageal reflux disease) (Acute) Chronic constipation (Acute) Stage 3b chronic kidney disease (CKD) (Acute) Past Medical History Medical History Stage 3b chronic kidney disease (CKD) Atrial fibrillation Hemorrhoid Glaucoma Surgical History Surgical History Hx of cataract surgery (~08/2023) Social History Social History Household Members: Family Alcohol intake: never Patient Tobacco Use Status: Never used Tobacco Use of substances other than those prescribed or required for medical reasons: No Advance Directives: No Advance Directives Information Provided: Yes Meds Allergies Allergy/AdvReac Type Severity Reaction Status Date / Time codeine Allergy Unknown Unknown Verified 09/11/24 14:42 Home Medications ?Medication ?Instructions ?Recorded ?Confirmed ?Last Taken ?Type apixaban 2.5 mg tablet (Eliquis) 2.5 mg PO BID 11/15/23 09/11/24 Unknown History dorzolamide 22.3 mg-timolol 6.8 ophthalmic (eye) BID 11/15/23 09/11/24 Unknown History mg/mL eye drops butalbital 50 mg-acetaminophen 300 1 cap PO Q4H PRN 05/08/24 09/11/24 Unknown History mg-caffeine 40 mg-codeine 30 mg cap famotidine 20 mg tablet 20 mg PO BID 05/08/24 09/11/24 Unknown History tramadol 50 mg tablet 50 mg PO TID PRN 05/08/24 09/11/24 Unknown History ketorolac 0.5 % eye drops drp ophthalmic (eye) 09/11/24 09/11/24 Unknown History prednisolone acetate 1 % eye drp ophthalmic (eye) 09/11/24 09/11/24 Unknown History drops,suspension Exam Pertinent Lab Results Pertinent Lab Results: Laboratory Tests 01/10/24 08/10/24 14:24 12:46 WBC 7.2 Hgb 14.2 Hct 44.2 Plt Count 231 Sodium 138 Potassium 4.0 Chloride 107 Carbon Dioxide 27 BUN 22 H Creatinine 1.75 H Narrative Narrative: EKG 08/2024 Ventricular Rate: 65 BPM Atrial Rate: 416 BPM QRS Duration: 76 ms Q-T Interval: 404 ms QTC Calculation(Bazett): 420 ms R [place]: 43 degrees T [place]: 36 degrees Atrial fibrillation Abnormal ECG When compared with ECG of 02-May-2024 14:13, No significant change was found Confirmed by ALFONZO GARZA MD ([id number]) on 09/05/2024 8:10:05 AM Nuc Stress 06/2024 Conclusions Summary 1.) Normal myocardial perfusion imaging study following regadenoson administration. 2.) Normal post-stress left ventricular chamber size and systolic function without regional wall motion abnormalities. 3.) Stress lab results will be reported separately. 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 Assessment and Plan Assessment Anesthesia Assessment: Chart Reviewed Documented by User: Radha Méndez MD 09/18/24 13:29 [facility] Past Medical History Medical History Stage 3b chronic kidney disease (CKD) Atrial fibrillation Hemorrhoid Glaucoma Surgical History Surgical History Hx of cataract surgery (~08/2023) History of Problems with Anesthesia: No Social History Social History Household Members: Family Alcohol intake: never Patient Tobacco Use Status: Never used Tobacco Use of substances other than those prescribed or required for medical reasons: No Advance Directives: No Advance Directives Information Provided: Yes Meds Allergies Allergy/AdvReac Type Severity Reaction Status Date / Time codeine Allergy Unknown Unknown Verified 09/11/24 14:42 Home Medications ?Medication ?Instructions ?Recorded ?Confirmed ?Last Taken ?Type apixaban 2.5 mg tablet (Eliquis) 2.5 mg PO BID 11/15/23 09/11/24 Unknown History dorzolamide 22.3 mg-timolol 6.8 ophthalmic (eye) BID 11/15/23 09/11/24 Unknown History mg/mL eye drops butalbital 50 mg-acetaminophen 300 1 cap PO Q4H PRN 05/08/24 09/11/24 Unknown History mg-caffeine 40 mg-codeine 30 mg cap famotidine 20 mg tablet 20 mg PO BID 05/08/24 09/11/24 Unknown History tramadol 50 mg tablet 50 mg PO TID PRN 05/08/24 09/11/24 Unknown History ketorolac 0.5 % eye drops drp ophthalmic (eye) 09/11/24 09/11/24 Unknown History prednisolone acetate 1 % eye drp ophthalmic (eye) 09/11/24 09/11/24 Unknown History drops,suspension Exam Airway Mallampati Class: III TM Dist: >3cm Neck ROM: Limited Loose/Missing/Broken Teeth: No Heart: RRR Lungs: CTA Assessment and Plan Assessment Anesthesia Assessment: Anesthesia Plan Discussed Final Anesthetic Review History of Problems with Anesthesia: No NPO: Yes ASA Class: III Final Preanesthetic Review: Meds/Allgs Chart Reviewed, Consent Obtained/Reviewed and Anes Risks/Benef Reviewed Patient Risk: Intermediate Procedure Risk: Intermediate Anesthetic Plan Anesthetic Plan: MAC: Disposition: Standard PACU
--- NOTE | 2024-09-18 12:11 | MHC.SHP ---
Pre-Procedural Eval Section A - 24 Hr Update-Section A only Date of Service: 09/18/24 The patient is an INPATIENT: No Changes since office visit: Yes Patient answered all questions; No Cold of Flu in the past 2 weeks, No New Medical Problems and No Changes in Medication The patient has been examined within 24 hours of the surgical procedure. The History & Physical has been completed within 30 days and I have reviewed it.: Yes Section B - Complete if H&P > 30 days Chief Complaint: screening,weight loss,abdominal pain Allergies: Allergies Allergy/AdvReac Type Severity Reaction Status Date / Time codeine Allergy Unknown Unknown Verified 09/11/24 14:42 Plan Diagnosis/Plan: Unchanged I have reviewed the history and physical and performed a pertinent physical examination on my patient. No changes have occurred unless specified. Time Spent With Patient Time: Total time managing care of this patient today ____ minutes.
[2024-09-18 12:34] VITALS: BMI 22.7
[2024-09-18 12:47] VITALS: BP 144/71; PULSE 60; RESP 16; TEMP 36.6; O2SAT 100
[2024-09-18] MEDS: Lactated Ringers 1,000 ML 100 ML IVCONT (12:48)
[2024-09-18 14:27] VITALS: BP 102/64; PULSE 66; RESP 18; TEMP 36.1; O2SAT 99
--- NOTE | 2024-09-18 14:28 | P.OPN-COLO_ITS ---
Colonoscopy Operative Note Operative Note Date of Service: 09/18/24 Narrative: FLEXIBLE TRANSORAL UPPER GASTROINTESTINAL ENDOSCOPY WITH BIOPSIES AND COLONOSCOPY TILL CECUM WITH BIOPSIES Pre-op diagnosis: Colon cancer screening, GERD, abdominal pain, constipation, wt loss Post-op diagnosis: GERD, Gastritis, Diverticulosis, hemorrhoids Endoscopist:? Saba Stacy MD Anesthesia:?MAC UPPER ENDOSCOPY Consent: Indications for the procedure and potential complications of bleeding, perforation, reaction to medications and missed diagnosis were discussed with the patient and informed consent was obtained. Instrument: Olympus GIF H 190 mid size upper endoscope Monitoring: Vital signs and clinical assessment, continuous EKG monitoring, Pulse oximetry, Carbon Dioxide monitoring and blood pressure monitoring were done throughout the procedure. Procedure: The patient was placed in the left lateral decubitis position and pre-procedure medications were administered and a bite block was placed. The endoscope was inserted into the mouth and advanced under direct vision to the third part of duodenum. A careful inspection was made as the upper endoscope was withdrawn including a retroflexed examination of the proximal stomach; Findings and interventions are described below. Findings: Larynx: Normal Esophagus: GE junction at 40 cms. No esophagitis. Irregular Z line - biopsied to check for Wade's. Stomach: Moderate diffuse gastric erythema - biopsies were obtained from the gastric body and antrum. Grade 2 flap valve on retroflexed examination of the cardia. Duodenum: Normal bulb and descending duodenum Biopsies were obtained from descending duodenum to check for celiac sprue Intervention: Biopsies as noted above COLONOSCOPY PROCEDURE NOTE Instrument: Olympus PCF H 190 L variable stiffness pediatric colonoscope Monitoring: Vital signs and clinical assessment, intermittent blood pressure monitoring, continuous EKG monitoring, Pulse oximetry and Carbon Dioxide monitoring were done throughout the procedure. Please see anesthesia flowsheet. Colon withdrawl time was 20 minutes. Procedure: The patient was placed in the left lateral decubitis position and pre-procedure medications were administered. After a digital rectal examination of the ano-rectum, the video colonoscope was inserted into the rectum and advanced through the colon to the cecum. The colonoscope was slowly withdrawn in a retrograde panoramic fashion and the colon mucosa was carefully examined including a retroflexed view of the rectum. Findings and interventions are described below. Procedure Difficulty: Colon was long and tortuous and there was spasm and some loop formation Findings: Terminal Ileum: Not evaluated Cecum: Normal Ascending Colon: Moderate diverticulosis Transverse Colon: Moderate diverticulosis Descending Colon: Moderate diverticulosis Sigmoid Colon: Moderate diverticulosis Rectum: Normal Ano-rectum: Moderate internal hemorrhoids Colon preparation: Good after copious irrigation. [place] Bowel Preparation Scale Right colon; 2 Transverse colon: 2 Left colon; 2 (0 = Unprepared colon segment with mucosa not seen due to solid stool that cannot be cleared. 1 = Portion of mucosa of the colon segment seen, but other areas of the colon segment not well seen due to staining, residual stool and/or opaque liquid. 2 = Minor amount of residual staining, small fragments of stool and/or opaque liquid, but mucosa of colon segment seen well. 3 = Entire mucosa of colon segment seen well with no residual staining, small fragments of stool or opaque liquid) Impression and Post Procedure Diagnosis: Endoscopy Findings: ESOPHAGUS: Irregular Z line - biopsied to check for Wade's. STOMACH: Moderate diffuse erythema DUODENUM: Normal - biopsied to check for celiac sprue Colonoscopy Findings: No polyps were detected Moderate diverticulosis seen in the entire colon Moderate hemorrhoids on retroflexed exam. Plan: Pt to schedule a FU appointment with Dr Stacy Given advanced age, repeat screening colonoscopy is not indicated. A summary of above findings and relevant handouts were given to the patient. BIOPSIES SHOWED: A. Small bowel, biopsy: Small bowel mucosa within normal limits; preserved villo us architecture and no increased intraepithelial lymphocytes seen. B. Stomach, antrum, biopsy: Gastric antral mucosa with mild chronic inactive gastritis; negative for Helicobacter pylori, intestinal metaplasia and dysplasia. C. Stomach, body, biopsy: Gastric body mucosa with mild chronic inactive gastritis; negative for Helicobacter pylori, intestinal metaplasia and dysplasia. D. Gastroesophageal junction, biopsy: Gastric cardia type mucosa with mild chronic inflammation; no squamous mucosa seen; negative for intestinal metaplasia and dysplasia. E. Colon, right, biopsy: Colonic mucosa with melanosis coli; negative for active, chronic or microscopic colitis. F. Colon, left, biopsy: Colonic mucosa with melanosis coli; negative for active, chronic or microscopic colitis.
[2024-09-18 14:49] VITALS: BP 112/77; PULSE 74; RESP 16; TEMP 36.2; O2SAT 100
== END 2024-09-18 15:19 | disposition home or self-care (01) ==
PROVIDERS: PCP Internal Medicine; Visit Provider Internal Medicine Gastroenterology
PROC: (CPT 45380; principal; 2024-09-18 13:40)
DX: Z12.11 Encounter for screening for malignant neoplasm of colon (principal); K56.2 Volvulus; K63.89 Other specified diseases of intestine; K57.30 Diverticulosis of large intestine without perforation or abscess without bleeding; K64.8 Other hemorrhoids; R63.4 Abnormal weight loss; K21.9 Gastro-esophageal reflux disease without esophagitis; K22.9 Disease of esophagus, unspecified; K29.70 Gastritis, unspecified, without bleeding; I48.91 Unspecified atrial fibrillation; Z79.899 Other long term (current) drug therapy; Z79.01 Long term (current) use of anticoagulants
CPT/HCPCS: 45380; 43239; 88305; 88313; 88342; J2003; J2704

== ENCOUNTER → 2024-09-18 12:01 | Outpatient (BNV) | payer MEDICARE, MEDICAID, SELFPAY | PROVIDERS: PCP Internal Medicine; Visit Provider Internal Medicine Gastroenterology | DX: Z12.11 Encounter for screening for malignant neoplasm of colon (principal); K57.90 Diverticulosis of intestine, part unspecified, without perforation or abscess without bleeding; K64.8 Other hemorrhoids; R63.4 Abnormal weight loss; K21.9 Gastro-esophageal reflux disease without esophagitis; K29.70 Gastritis, unspecified, without bleeding | CPT/HCPCS: 43239; G0121 ==

== ENCOUNTER 2024-10-11 08:29 | Outpatient (REF) | payer MEDICARE, MEDICAID, SELFPAY ==
--- NOTE | ~2024-10-11 | FL_ITS ---
EXAMINATION: XR FLUOROSCOPY ESOPHAGRAM CLINICAL INFORMATION: Patient complaining of nocturnal regurgitation. GERD type symptoms. Rule out hiatus hernia and reflux. COMPARISON: None TECHNIQUE: Fluoroscopic air contrast esophagram examination was performed utilizing standard techniques with thin and thick barium and effervescent granules. Numerous spot images were obtained. Several fluoroscopic image hold cine sequences were also obtained. FINDINGS: Study was limited as the patient was unable to retain the effervescent granule gas. Patient was also limited in mobility. This limits the sensitivity of the study. ESOPHAGRAM: Lateral cine images of the oropharynx and hypopharynx demonstrate normal swallow mechanism with normal epiglottic inversion and soft palate elevation. No laryngeal penetration, glottic or subglottic aspiration identified. No nasopharyngeal reflux present. Hypopharyngeal structures appear normal without evidence of mass or diverticulum. There was no significant cricopharyngeal achalasia. Dual and single contrast images of the esophagus demonstrate normal caliber, contour, and mucosal pattern. No evidence of stricture, mass, or ulcerations identified. Esophageal peristalsis was mild to moderately disordered. Small type I hiatus hernia. No definite gastroesophageal reflux was seen during the course of the examination. Dual contrast and single contrast images of the stomach demonstrated normal contour and mucosal pattern without evidence of mass, ulceration, or other abnormality. Contrast freely passed into the gastric antrum and duodenal bulb without delay. Incidentally noted was rapid contrast transit into the right colon by 3 minutes. Small bowel has a grossly normal mucosal fold pattern. FLUOROSCOPY TIME: 3 minutes, 2 seconds Number of Spot Images:11 Number of cines obtained: 8 DOSE AREA PRODUCT: 2724 uGy-m2 (microgray-meter squared) FL/FL barium swallow with air IMPRESSION: Somewhat limited exam as detailed. 1. Mild to moderately disordered esophageal peristalsis. 2. Small type I hiatus hernia identified. 3. No definite gastroesophageal reflux identified during the course of the exam. 4. Allowing for limitations, normal appearance of the stomach. 5. Incidentally noted was a very rapid transit of contrast into the colon, which reached the right colon in approximately 3 minutes. This is of uncertain etiology or clinical significance. Electronically signed by: Martinez Fregoso MD 10/11/2024 09:59 AM EDT
--- OUTSIDE RECORDS SUMMARY | 2024-10-11 08:53 | XMS_ITS | Clinical Summary ---
Author Organization [facility], Address [address] [place] [address] Phone Care Team Providers Care Jack Spooler Tender Name Role Phone Marybeth Hylton MD Primary Care Provider [phone] Allergies Active Allergy Reactions Criticality Noted Date [...] 10/03/2021 11/27/2022 Cardioembolic stroke 09/18/2019 021 Immunizations Immunization Administration Dates Next Due Influenza Split High [...] 72 06/21/2023 2:33 PM EDT Temperature 36.3 C (97.4 F) 04/06/2022 2:39 PM EST Respiratory Rate - - Oxygen Saturation - - Inhaled Oxygen Concentration - - Weight - - Height - - Body Mass Index - - Plan of Treatment Health Maintenance Due Date Last Done Comments Influenza Vaccine (#1) 2024 0, 12/16/2018, 11/21/2018, Additional history exists Pneumococcal Vaccine: 50+ Years Completed 06/18/2014, 03/27/2008 Pneumococcal Vaccine: Peds (0 to 5 Years) and At-Risk Patients (6 to 49 Years) Discontinued 06/18/2014, 03/27/2008 Hepatitis B Vaccine Aged Out No longe r eligible based on patient's age to complete this topic Insurance Medicare Medicaid [place] Care Teams Jack Spooler Tender Relationship Specialty Start Date End Date Marybeth Hylton MD [address] [place] [address] PCP - General Internal Medicine 11/30/22
--- OUTSIDE RECORDS SUMMARY | 2024-10-11 08:53 | XMS_ITS | Clinical Summary ---
Author Organization [employer] Address [address] [place] [address] 7 [place] [address] Care Team Providers Care Gun Numberer Name Role Phone Eliezer Torres PA-C Primary Care Provider [phone] Allergies Active Allergy Reactions Criticality Noted Date Comments Codeine Headache 09/17/2018 DURANT DURANT Medications apixaban (Eliquis) 2.5 MG tablet 1 Active pilocarpine (Pilocar) 2 % ophthalmic solution instill 1 drop into both eyes four times a day 3 Active Timolol Maleate, Once-Daily, 0.5 % solution Administer into affected eye(s). Active Active Problems No known active problems Encounters Date Type Department Care Team Description 08/08/2024 9:30 AM EDT [facility] [address] [place] [address] Samantha Ahn LLD 07/27/2024 Telephone [facility] [address] [phone] Eliezer Torres PA-C 07/27/2024 Telephone [facility] [address] [phone] Eliezer Torres PA-C from Last 3 Months Social History Tobacco [...] Sign Reading Time Taken Comments Blood Pressure 93/69 08/08/2024 9:18 AM EDT Pulse 71 08/08/2024 9:18 AM EDT Temperature 36.8 C (98.3 F) 08/08/2024 9:18 AM EDT Respiratory Rate - - Oxygen Saturation - - Inhaled Oxygen Concentration - - Weight - - Height - - Body Mass Index - - Plan of Treatment Health Maintenance Due Date Last Done Comments Depression Screening 1943 Lipid Panel 1943 SDOH Screening 1943 Alcohol/Substance Use Screening 1955 Zoster Vaccines (2 of 3) 06/17/2011 04/22/2011 DTaP/Tdap/Td Vaccines (1 - Tdap) 08/02/2018 08/01/2018, 03/27/2008, 03/27/2008 Dental X-Ray: Full Mouth 10/04/2023 10/02/2020, 09/16 Dental Oral Exam 03/23/2024 09/20/2023, , 08/31/2018, Additional history exists Dental Prophylaxis 04/10/2024 10/08/2023, 0 10/02/2020, 07/08/2018, Additional history exists COVID-19 Vaccine ( season) 2024 12/18/2023, 11/06/2022, 11/19/2021, Additional history exists Dental X-Ray: Bitewings 09/20/2024 09/20/19 24, 10/02/2020, 07/08/2018, Additional history exists Influenza Vaccine (#1) 2024 , 10/30/2022, 11/24/2021, Additional history exists Tobacco Screening 08/08/2025 08/08/2024 Pneumococcal Vaccine: 50+ Years Completed 06/18/2014, 03/27/2008 RSV Patients and Patients Aged 60 years or older Completed 02/01/2023 HIB Vaccines Aged Out No longer eligi [...] patient's age to complete this topic Meningococcal B Vaccine Aged Out No l onger eligible based on patient's age to complete [...] Procedure Name Priority Date/Time Associated Diagnosis Comments CASE PRESENTATION, DETAILED AND EXTENSIVE TREATMENT PLANNING Routine 08/08/2024 9:30 AM EDT INTRAORAL - PERIAPICAL FIRST RADIOGRAPHIC IMAGE Routine 08/08/2024 9:30 AM EDT UL PALLIATIVE (EMERGENCY) TREATMENT OF DENTAL PAIN - MINOR PROCEDURE Routine 08/08/2024 9:30 AM EDT 12 IMPLANT SUPPORTED PORCELAIN/CERAMIC CROWN Routine 08/08/2024 12:00 AM EDT 12 IMPLANT SUPPORTED PORCELAIN/CERAMIC CROWN Routine 08/08/2024 12:00 AM EDT 12 IMPLANT SUPPORTED PORCELAIN/CERAMIC CROWN Routine 08/08/2024 12:00 AM EDT PROPHYLAXIS - ADULT Routine 10/08/2023 1 1:15 AM EDT BITEWINGS - 4 RADIOGRAPHIC IMAGES Routine 09/20/2023 11:30 AM EDT PERIODIC ORAL EVALUATION - ESTABLISHED PATIENT Routine 09/20/2023 11:30 AM EDT INTRAORAL - COMPLETE SERIES OF RADIOGRAPHIC IMAGES Routine 10/02/2020 12:00 AM EDT from Last 3 Months or Most Recently Relevant to Health Maintenance [place] [address] [facility] STANDARD MEDICARE DENTAL - HSN FULL (MEDICAID) Care Teams Gun Numberer Relationship Specialty Start Date End Date Eliezer Torres PA-C [address] [place] [phone] PCP - General Family Medicine 06/09/23
--- OUTSIDE RECORDS SUMMARY | 2024-10-11 08:53 | XMS_ITS | Clinical Summary ---
Author Organization [facility] Address [address] [place] [address] Phone Care Team Providers Care Business Support Administrator Name Role Phone Marybeth Hylton MD Primary Care Provider [phone] Encounters Date Type Department Care Team Description 07/28/2024 Transcribe Orders [facility] Rheumatology [address] [place] [address] Dariana Good, HUSSEIN Dysgeusia (Primary Dx) from [...] file Insurance MEDICARE PART A & B [facility] MEDICARE PART A & B HEALTH MEDICARE PART A & [place] A & B Member Subscriber Plan / Payer (Ef fective 1999-) Name:Edmund Allison Member ID:[id number] Relation to Subscriber:Self Name:Edmund Allison Subscriber ID:[id number] Payer ID:[id number] Group ID:Not on file Type:Medicare Address: [facility] [employer] [id number] [place] A & [place] [facility] Care Teams Business Support Administrator Relationship Specialty Start Date End Date Marybeth Hylton MD [address] [place] [address] [email or web address] PCP - General Internal Medicine 05/24/24 Additional Source Comments The information contained in this document represents components of the legal health record. It is not the complete legal health record.[facility]
--- OUTSIDE RECORDS SUMMARY | 2024-10-11 08:53 | XMS_ITS | Encounter Summary ---
Author Organization [facility], Address [address] [place] [address] Phone Care Team Providers Care Yardage Estimator Name Role Phone Marybeth Hylton MD Primary Care Provider [phone] Encounter Details Date Type Department Care Team (Late st Contact Info) Description 06/17/2023 Documentation Only [facility], [address] [place] [phone] Rebecca Quinn [address] [place] [address] Social History Tobacco Use Types [...] on filedocumented in this encounter Care Teams Yardage Estimator Relationship Specialty Start Date End Date Marybeth Hylton MD [address] [place] [phone] PCP - General Internal Medicine 11/30/22 documented as of this encounter
--- OUTSIDE RECORDS SUMMARY | 2024-10-11 08:53 | XMS_ITS | Encounter Summary ---
Author Organization [employer] Address [address] [place] [address] [address] [place] [phone] Care Team Providers Care Senior Business Architect Name Role Phone Anisa Rios Primary Care Provider Mohamud Stephens Primary Care Provider Eliezer Cardona PA-C Primary Care Provider Encounter Details Date Type Department Care Team [...] on filedocumented in this encounter Care Teams Senior Business Architect Relationship Specialty Start Date End Date Anisa Rios LLD PCP - General Dentist 12/12/21 09/28/22 Mohamud Vail PCP - General Family Medicine 09/29/22 06/08/23 Eliezer Torres PA-C [address] [place] [address] PCP - General Family Medicine 06/09/23 documented as of this encounter
--- OUTSIDE RECORDS SUMMARY | 2024-10-11 08:53 | XMS_ITS | Encounter Summary ---
Author Organization [employer] Address [address] [facility] 7t [place] [address] Care Team Providers Care Hand Molder And Caster Name Role Phone Eliezer Torres PA-C Primary Care Provider [phone] Encounter Details Date Type Department Care Team ([facility] Contact Info) Description 07/27/2024 Telephone [facility] [address] [phone] Eliezer Torres PA-C [address] [place] [address] Social History Tobacco Use Types Packs/Day Years [...] Telephone Encounter - Swathi Peralta - 07/27/2024 2:44 PM EDT Pt says his is pretty sharp and it cutting his tongue . He req to talk with a nurse documented in this encounter Plan of Treatment Not on file documented as of this encounter Visit Diagnoses Not on filedocumented in this encounter Care Teams Hand Molder And Caster Relationship Specialty Start Date End Date Eliezer Torres PA-C [address] [place] [phone] PCP - General Family Medicine 06/09/23 documented as of this encounter
--- OUTSIDE RECORDS SUMMARY | 2024-10-11 08:53 | XMS_ITS | Encounter Summary ---
Author Organization [employer] Address [address] [facility] 7t [place] [address] Care Team Providers Care Wood Preserving Plant Laborer Name Role Phone Eliezer Torres PA-C Primary Care Provider [phone] Encounter Details Date Type Department Care Team ([facility] Contact Info) Description 07/27/2024 Telephone [facility] [address] [phone] Eliezer Torres PA-C [address] [place] [address] Social History Tobacco Use Types Packs/Day Years [...] on filedocumented in this encounter Care Teams Wood Preserving Plant Laborer Relationship Specialty Start Date End Date Eliezer Torres PA-C [address] [place] [address] PCP - General Family Medicine 06/09/23 documented as of this encounter
== END 2024-10-11 08:30 | disposition home or self-care (01) ==
LOC: HO.XRAY 08:29
PROVIDERS: PCP Internal Medicine; Visit Provider Internal Medicine Gastroenterology
DX: K21.9 Gastro-esophageal reflux disease without esophagitis (principal)
CPT/HCPCS: 74221

== ENCOUNTER → 2024-10-11 08:31 | Outpatient (BNV) | payer MEDICARE, MEDICAID, SELFPAY | PROVIDERS: PCP Internal Medicine; Visit Provider Radiology Diagnostic Radiology | DX: K44.9 Diaphragmatic hernia without obstruction or gangrene (principal) | CPT/HCPCS: 74221 ==

== ENCOUNTER 2024-10-27 07:13 | Outpatient (AMB) | payer MEDICARE, MEDICAID, SELFPAY ==
--- OUTSIDE RECORDS SUMMARY | 2024-10-27 07:15 | XMS_ITS | Encounter Summary ---
Author Organization [facility], Address [address] [place] [address] Phone Care Team Providers Care Administrative Services Officer Name Role Phone Marybeth Hylton MD Primary Care Provider [phone] Encounter Details Date Type Department Care Team (Late st Contact Info) Description 06/17/2023 Documentation Only [facility], [address] [place] [phone] Rebecca Quinn [address] [place] [address] Social History Tobacco Use Types [...] on filedocumented in this encounter Care Teams Administrative Services Officer Relationship Specialty Start Date End Date Marybeth Hylton MD [address] [place] [phone] PCP - General Internal Medicine 11/30/22 documented as of this encounter
--- OUTSIDE RECORDS SUMMARY | 2024-10-27 07:15 | XMS_ITS | Encounter Summary ---
Author Organization [employer] Address [address] [facility] 7t [place] [address] Care Team Providers Care Groundskeeper Name Role Phone Eliezer Torres PA-C Primary Care Provider Encounter Details Date Type Department Care Team ([facility] Contact Info) Description 07/27/2024 Telephone [facility] [address] [phone] Eliezer Torres PA-C [address] [place] [address] Social History Tobacco Use Types Packs/Day Years [...] on filedocumented in this encounter Care Teams Groundskeeper Relationship Specialty Start Date End Date Eliezer Torres PA-C [address] [place] [address] PCP - General Family Medicine 06/09/23 documented as of this encounter
--- OUTSIDE RECORDS SUMMARY | 2024-10-27 07:15 | XMS_ITS | Clinical Summary ---
Author Organization [facility], Address [address] [place] [address] Phone Care Team Providers Care Ux Lead Name Role Phone Marybeth Hylton MD Primary Care Provider Allergies Active Allergy Reactions Criticality Noted Date [...] topic Insurance Medicare Medicaid [place] Care Teams Ux Lead Relationship Specialty Start Date End Date Marybeth Hylton MD [address] [place] [address] PCP - General Internal Medicine 11/30/22
--- OUTSIDE RECORDS SUMMARY | 2024-10-27 07:15 | XMS_ITS | Encounter Summary ---
Author Organization [employer] Address [address] [place] [address] [address] [phone] Care Team Providers Care Senior Investment Manager Name Role Phone Anisa Rios Primary Care [...] filedocumented in this encounter Care Teams Senior Investment Manager Relationship Specialty Start Date End Date Anisa Rios LLD PCP - General Dentist 12/12/21 09/28/22 Mohamud Vail PCP - General Family Medicine 09/29/22 06/08/23 Eliezer Torres PA-C [address] [place] [address] PCP - General Family Medicine 06/09/23 documented as of this encounter
--- OUTSIDE RECORDS SUMMARY | 2024-10-27 07:15 | XMS_ITS | Clinical Summary ---
Author Organization [facility] Address [address] [place] [address] Phone Care Team Providers Care Information Services Tech Name Role Phone Marybeth Hylton MD Primary Care Provider [phone] Encounters Date Type Department Care Team Description 07/28/2024 Transcribe Orders [facility] Rheumatology [address] [place] [address] Dariana Good, HUSSEIN Dysgeusia (Primary Dx) from [...] file Insurance MEDICARE PART A & B [facility] MEDICARE PART A & B HEALTH MEDICARE PART A & [place] A & B Member Subscriber Plan / Payer (Ef fective 1999-) Name:Edmund Allison Member ID:[id number] Relation to Subscriber:Self Name:Edmund Allison Subscriber ID:[id number] Payer ID:[id number] Group ID:Not on file Type:Medicare Address: [facility] [employer] [address] [place] MEDIC[place] PART A & [place] A & B [facility] Care Teams Information Services Tech Relationship Specialty Start Date End Date Marybeth Hylton MD [address] [place] [address] [email or web address] PCP - General Internal Medicine 05/24/24 Additional Source Comments The information contained in this document represents components of the legal health record. It is not the complete legal health record.[facility]
--- OUTSIDE RECORDS SUMMARY | 2024-10-27 07:15 | XMS_ITS | Encounter Summary ---
Author Organization [employer] Address [address] [facility] 7t [place] [address] Care Team Providers Care Elementary Special Education Teacher Name Role Phone Eliezer Torres PA-C Primary Care Provider [phone] Encounter Details Date Type Department Care Team ([facility] Contact Info) Description 07/27/2024 Telephone [facility] [address] [phone] Eliezer Torres PA-C [address] [place] [address] Social History Tobacco Use Types Packs/Day Years [...] on filedocumented in this encounter Care Teams Elementary Special Education Teacher Relationship Specialty Start Date End Date Eliezer Torres PA-C [address] [place] [address] PCP - General Family Medicine 06/09/23 documented as of this encounter
--- OUTSIDE RECORDS SUMMARY | 2024-10-27 07:15 | XMS_ITS | Clinical Summary ---
Author Organization [employer] Address [address] [place] [address] 7 [place] [address] Care Team Providers Care Warehouse Handler Name Role Phone Eliezer Torres PA-C Primary Care Provider [phone] Allergies Active Allergy Reactions Criticality Noted Date [...] Description 08/08/2024 9:30 AM EDT Office Visit [facility] [address] [place] [phone] Samantha Ahn LLD 07/27/2024 Telephone [facility] [address] [place] [address] [phone] Eliezer Torres PA-C 07/27/2024 Telephone [facility] [address] [place] [address] [phone] Eliezer Torres PA-C from Last 3 Months [...] 09/20/19 24, 10/02/2020, 07/08/2018, Additional history exists COVID-19 Vaccine (2023- season) 2024 12/18/2023, 11/06/2022, 11/19/2021, Additional history exists Influenza Vaccine (#1) 2024 [...] Recently Relevant [place] [address] [facility] STANDARD MEDICARE [address] [facility] [place] [facility] ADULT DENTAL - HSN FULL (MEDICAID) Care Teams Warehouse Handler Relationship Specialty Start Date End Date Eliezer Torres PA-C [address] [place] [address] PCP - General Family Medicine 06/09/23
--- NOTE | 2024-10-27 07:19 | A.OFFVIS_ITS ---
Intake Visit Reasons: follow up Intake Note: Patient telehealth follow up for Chronic constipation, Barium swallow, Colonoscopy/EGD results. Patient cc: constipation,heartburn with burning sensation. Also he wanted you to read a CT scan that he did at [facility]. Movement Education Specialist Required: No Allergies codeine Allergy (Unknown, Verified 12/04/24 07:14) Unknown Medication List - Last Reconciled 10/27/24 by Saba Stacy MD apixaban (Eliquis) 2.5 mg PO BID Held on 09/18/24. Instructions: Resume on 09/19/24. Resume Eliquis on 09/19/24 Bifidobacterium longum (Align (B.longum)) 1 capsule orally; 30 days ysyihxkibp-awenlncibk-vnx-cod [id number] mg 1 cap PO Q4H PRN cholecalciferol (vitamin D3) 10 mcg PO DAILY dorzolamide-timolol 22.3-6.8 mg/mL ophthalmic (eye) BID famotidine 20 mg PO BID ketorolac 0.5% drps ophthalmic (eye) peg 3350-electrolytes 236-22.74-6.74 -5.86 gram (GaviLyte-G) 240 mL PO Q10M polyethylene glycol 3350 (Miralax) 17 grams PO DAILY 1 day prednisolone acetate 1% drps ophthalmic (eye) HPI HPI follow up: Details: Telemedicine visit for this 79 YM for FU of chronic abdominal pain, GERD, constipation, unintentional weight loss and suspected small-bowel bacterial overgrowth Pt has chronic kidney disease stage 3. with serum creatinine around 1.6 mg/dL and this has been relatively unchanged for the past 3 years. The exact etiology for CKD is unclear at this time. Pt was diagnosed with AFib and he had a stroke in 2017. CKD was diagnosed at that time. He is on anticoagulation. TODAY'S VISIT: Patient telehealth follow up for Chronic constipation, Barium swallow results CC: States that he has been in a lot of pain in the stomach - constipation no diarrhea. Taking Miralax twice a day Thinks stomach has been more sensitive since he had the EGD. Continues to have constipation - has a BM once a day Notes burning in the upper abdomen - 2 spots under the rib cage on the left - feels like a cut States that he is also having acid reflux. States that he was given Gavilax but he is not sure if he is supposed to take it? It says that he takes miralax that he confirmed so I am not sure about the Gavilax Rx as well. Tried Nexium and Prilosec and symptoms got worse. ? of autoimmune gastritis Feels uncomfortable after eating - can have discomfort during eating and right after Has some nausea and denies vomiting. Notes excessive salivation and extreme bitter saltish taste in the mouth and makes him feel nauseated Feeling of pain spreads throughout the body with tingling throughout the body PAST VISITS: Feels a little better. Continues to have constipation - gets the urge and nothing comes out. Taking Miralax daily and dulcolax 2 tab at night with intermittent results. Took Miralax prep and felt better for a week or so. Takes an enema once in a while - which works right away. 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 Patient cc: abdominal pain, acid reflux, weight lost with a good appetite, dizziness/tiredness with fatigue, constipation with difficulty to do BM daily and gassy. Pt is accompanied by his Ex- Wt loss of 14 lbs over the past 9 months. Pt complains of nausea and denies vomiting. Feels hungry and denies any change in food intake and is loosing weight. Patient denies symptoms of heartburn, dysphagia, vomiting, change in appetite. Hx of intermittent constipation and more persistent for the past 2-3 years. Seen in the ER ([facility]) for impaction and treated with an enema - advised constant laxative prescription. Takes Metamucil and Miralax daily. Sometimes take Dulcolax, Mag Citrate Denies recent black stools or rectal bleeding. Has A Fib and denies major pulmonary problems, Pt has insomnia and denies loud snoring or sleep apnea Notes salty and bitter water in his mouth at night and has to get up to spit it out Has been belching a lot and feels food is not digesting properly. Tried a FODMAP diet which did not help - taking a bland diet now. Denies problems with anesthesia in the past. Patient denies known family history of colon polyps, colon cancer or other Sister has GB issues and Mom of Jaundice. After H Pylori was diagnosed he was treated with antibiotics he started he feeling bad. 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 PAST EGD/COLONOSCOPY: EGD in 2022 showed H Pylori Had 2 colonoscopies in the past - last in 2022 LABS IN [facility] : 12/2023 Reviewed - normal CBC and LFTs IMAGING STUDIES: No recent GI imaging studies Pt reports he had a CT scan at [facility] ENDOSCOPIC STUDIES: [] PAST GI HISTORY BY REVIEW OF MEDICAL RECORDS: 05/08/24 PATIENT WAS LAST SEEN BY DR. PELAYO: Edmund is a pleasant 78-year-old man with a history of chronic kidney disease stage 3. Serum creatinine has been around 1.6 mg/dL and this has been relatively unchanged for the past 3 years. The exact etiology for CKD is unclear at this time. Back in 2017 he was diagnosed with AFib and he had a stroke. He is on anticoagulation at this time. CKD was diagnosed at that time. No history of hypertension or diabetes mellitus. No urinary symptoms. No polyuria polydipsia no hematuria. No kidney stones. No significant shortness of breath on exertion. He had as leg edema no fever no rash. No joint pains. No nausea or vomiting. No weight loss. He has itching on and off. No significant skin lesions were noted He has significant constipation and recently started on Linzess. Is legally blind 01/10/24 Doing better; NO new issues today ;Has difficulty sleeping ;c/o fatigue 05/08/24 Recent in ER with abd pain- resolved Lost 10 lbs in 6months c/o Constipation Last colonoscopy was 3 years ago [facility] Medical History (Updated 12/25/24 @ 19:55 by Saba Stacy MD) Stage 3b chronic kidney disease (CKD) Atrial fibrillation Hemorrhoid Glaucoma Surgical History History of esophagogastroduodenoscopy (EGD) Hx of colonoscopy Hx of cataract surgery (~08/2023) Social History Household Members: Family Alcohol intake: never Patient Tobacco Use Status: Never used Tobacco Review of Systems Const All systems reviewed & are unremarkable except as noted in HPI and below Telehealth Telehealth Telehealth Platform: Telephone Location of provider rendering services: practice address Location of patient: address on file Patient Identification confirmed using: Name, : Yes Telehealth method: voice only Patient verbally consented to treatment: Yes Patient verbally consented to billing insurance company: Yes Patient informed of any privacy concerns related to visit: Yes Minutes spent on Phone/Video with Pt.: 26 Assessment & Plan Assessment & Plan (1) Chronic constipation: Code(s): K59.09 - Other constipation Category: Medical (2) GERD (gastroesophageal reflux disease): Code(s): K21.9 - Gastro-esophageal reflux disease without esophagitis Category: Medical (3) Weight loss: Code(s): R63.4 - Abnormal weight loss Category: Medical (4) Upper abdominal pain: Code(s): R10.10 - Upper abdominal pain, unspecified Category: Medical Plan [address] Pelayo for evaluation of chronic abdominal pain, GERD, constipation, unintentional weight loss and suspected small-bowel bacterial overgrowth Patient has a history of Helicobacter pylori infection which was treated in the past Pt has chronic kidney disease stage 3. with serum creatinine around 1.6 mg/dL and this has been relatively unchanged for the past 3 years. Pt was diagnosed with AFib and he had a stroke in 2017. CKD was diagnosed at that time. He is on oral anticoagulation. He is on Rifaximin for the past week for suspected SIBO. Pt was advised to: 1. Check an H pylori breath test to rule out recurrent Helicobacter pylori - negative. 2. KUB to FU on constipation and rule out obstipation. 3. Barium swallow to evaluate severity of GERD and rule out hiatal hernia - scheduled 11/30/24. 4. Stool studies to check for IBD and pancreatic insufficiency - Normal. 5. Obtain reports of EGD and Colonoscopy from [facility] to determine timing of next EGD and colonoscopy. 6. Pt advised to go on a clear liquid diet and take Miralax over two days to see if his symptoms improve (Pt reported he has done this a few weeks ago and did feel better temporarily) 09/01/24 Continues to have constipation - gets the urge and nothing comes out. Taking Miralax daily and dulcolax 2 tab at night with intermittent results. Took Miralax prep and felt better for a week or so. Takes an enema once in a while - which works right away. 09/18/24 EGD AND COLON SHOWED: Endoscopy Findings: ESOPHAGUS: Irregular Z line - biopsied to check for Wade's. STOMACH: Moderate diffuse erythema DUODENUM: Normal - biopsied to check for celiac sprue Colonoscopy Findings: No polyps were detected Moderate diverticulosis seen in the entire colon Moderate hemorrhoids on retroflexed exam. Plan: Given advanced age, repeat screening colonoscopy is not indicated. A summary of above findings and relevant handouts were given to the patient. BIOPSIES SHOWED: A. Small bowel, biopsy: Small bowel mucosa within normal limits; preserved villous architecture and no increased intraepithelial lymphocytes seen. B. Stomach, antrum, biopsy: Gastric antral mucosa with mild chronic inactive gastritis; negative for Helicobacter pylori, intestinal metaplasia and dysplasia. C. Stomach, body, biopsy: Gastric body mucosa with mild chronic inactive gastritis; negative for Helicobacter pylori, intestinal metaplasia and d ysplasia. D. Gastroesophageal junction, biopsy: Gastric cardia type mucosa with mild chronic inflammation; no squamous mucosa seen; negative for intestinal metaplasia and dysplasia. E. Colon, right, biopsy: Colonic mucosa with melanosis coli; negative for active, chronic or microscopic colitis. F. Colon, left, biopsy: Colonic mucosa with melanosis coli; negative for active, chronic or microscopic colitis. On 10/03/24 @ 13:35 Saba Stacy Wrote To Saba Stacy Pt called Not feeling well - feels pain at ? biopsy sites. He was reassured that the biopsy sites would be healed by now. Notes swelling of eyes, hands and feet after he started taking Pantoprazole. He stopped the pantoprazole and swelling is improving. Biopsy results reviewed Taking Miralax once a day and having a BM 2-3 times a day - advised to increase to twice a day. Sometimes has the sensation and nothing is coming out. Tried dicyclomine in the past and felt awful. Feels there is acid flowing through his veins BARIUM SWALLOW SHOWED: 1. Mild to moderately disordered esophageal peristalsis. 2. Small type I hiatus hernia identified. 3. No definite gastroesophageal reflux identified during the course of the exam. 4. Allowing for limitations, normal appearance of the stomach. 5. Incidentally noted was a very rapid transit of contrast into the colon, which reached the right colon in approximately 3 minutes. This is of uncertain etiology or clinical significance. 10/27/24 Taking Miralax twice a day Thinks stomach has been more sensitive since he had the EGD. Continues to have constipation - has a BM once a day Pt advised to check labs to rule out autoimmune gastritis FU TV in 4 weeks. Orders: Orders Complete Blood Count Auto Diff 10/27/24 R10.10 - Upper abdominal pain, unspecified Gastrin 10/27/24 R10.10 - Upper abdominal pain, unspecified EREN Reflex Titer and Pattern 10/27/24 R10.10 - Upper abdominal pain, unspecified C Reactive Protein 10/27/24 R10.10 - Upper abdominal pain, unspecified Parietal Cell Antibody 10/27/24 R10.10 - Upper abdominal pain, unspecified Intrinsic Factor Antibodies 10/27/24 R10.10 - Upper abdominal pain, unspecified Medications: New sucralfate 1 g PO BID 60 tabs 3RF 30 days R10.10 - Upper abdominal pain, unspecified Coding Level of Care Code Tele Est Pt Level 4 (74577) Diagnoses Chronic constipation K59.09 GERD (gastroesophageal reflux disease) K21.9 Weight loss R63.4 Upper abdominal pain R10.10 Time Spent (min) 26
== END 2024-10-27 08:19 | disposition home or self-care (01) ==
LOC: HO.HGI 07:13
PROVIDERS: PCP Internal Medicine; Visit Provider Internal Medicine Gastroenterology
DX: K59.09 Other constipation (principal); K21.9 Gastro-esophageal reflux disease without esophagitis; R63.4 Abnormal weight loss; R10.10 Upper abdominal pain, unspecified
CPT/HCPCS: 99214